=== PATIENT | male | born 1955 | race Two or more races ===

== ENCOUNTER 2020-10-17 15:59 | Outpatient (REF) | payer MEDICARE, SELFPAY ==
--- NOTE | ~2020-10-17 | XR_ITS ---
EXAMINATION: XR KNEE, RIGHT CLINICAL INFORMATION: Pain COMPARISON: Previous x-ray March 2016 TECHNIQUE: Four views of the right knee. FINDINGS: Bone alignment is normal. No fracture or dislocation is seen. There is joint space narrowing at the medial femoral tibial joint. There are small osteophytes at the patellofemoral joint. There is a moderate joint effusion. There is an osteophyte at the quadriceps tendon insertion to the patella. XR/XR knee RT 4V IMPRESSION: Osteoarthritis and joint effusion.
== END 2020-10-17 16:00 | disposition home or self-care (01) ==
LOC: HO.XRAY 15:59
PROVIDERS: PCP Internal Medicine; Visit Provider Internal Medicine
DX: M25.561 Pain in right knee (principal)
CPT/HCPCS: 73564

== ENCOUNTER 2020-10-20 09:28 | Emergency (ER) | payer MEDICARE, SELFPAY ==
[2020-10-20 09:46] VITALS: BP 135/70; PULSE 65; RESP 17; TEMP 36.8; O2SAT 97; BMI 30.4
--- NOTE | 2020-10-20 10:00 | ED.GENADULT ---
HPI - General Adult General Chief complaint: Extremity Injury, Lower Stated complaint: knee pain Time Seen by Provider: 10/20/20 09:52 Source: patient Mode of arrival: ambulatory Limitations: no limitations History of Present Illness HPI narrative: Patient presents to ED for evaluation for right knee pain. Patient had x-ray of his right knee on Saturday by PCP which shows severe arthritis and some joint effusion. Patient was sent for the ED for evaluation. Patient denies any fever, chills, warmth, redness of knee, or inability to walk. Patient denies any recent trauma. Patient states able to flex and extend knee in all positions. Related Data Previous Rx's Medication Instructions Recorded naproxen 500 mg PO BID PRN #20 tab 10/20/20 prednisone 40 mg PO DAILY #10 tab 10/20/20 Allergies Allergy/AdvReac Type Severity Reaction Status Date / Time avocado [AVOCADO] Allergy Unknown SEVERE N/V Verified 10/20/20 09:49 avacado Allergy Unknown nausea and Uncoded 11/12/16 00:00 vomiting Review of Systems Review of Systems: Yes all other systems are reviewed and are negative Constitutional: Constitutional: Reports as per HPI and Reports no additional constitutional complaints Eyes: Eyes: Reports as per HPI and Reports no additional eye complaints ENT: Reports system reviewed and no additional complaints, except as documented and Reports as per HPI Cardiovascular: Cardiovascular: Reports as per HPI and Reports no additional cardiovascular complaints Respiratory: Respiratory: Reports as per HPI and Reports no additional respiratory complaints Gastrointestinal: Gastrointestinal: Reports as per HPI and Reports no additional gastrointestinal complaints Musculoskeletal: Musculoskeletal: Reports no additional musculoskeletal complaints, Reports as per HPI and Reports arthralgias (Right knee pain) Neurologic: Reports system reviewed and no additional complaints, except as documented and Reports as per HPI Psychiatric: Psychiatric: Reports no additional psychiatric complaints and Reports as per HPI [facility] Past Medical History Medical History (Updated 10/20/20 @ 10:08 by TERESA Patel) No known health problems Social History Social History Advance Directives: No Advance Directives Information Provided: Yes Physical Exam Vital Signs: Vital Signs: Last Vital Signs Temp 98.2 F 10/20/20 09:46 Pulse 65 10/20/20 09:46 Resp 17 10/20/20 09:46 BP 135/70 10/20/20 09:46 Pulse Ox 97 10/20/20 09:46 Body Mass Index 30.4 Const: General: cooperative, healthy appearing, comfortable, no acute distress, well developed, alert, awake and Physically active Orientation/consciousness: patient oriented x3 HENMT: Head: Yes normal to inspection, Yes No palpable skull fracture present, Yes normocephalic and Yes atraumatic Eyes: General: appearance normal, both eyes and all related structures Neck: Neck: Yes normal visual inspection, Yes full ROM, Yes no lymphadenopathy, Yes no meningeal signs, Yes trachea midline, Yes supple and No tender Chest: Chest palpation & inspection: normal inspection of the chest and normal palpation of entire chest wall Resp: Effort & Inspection: normal respiratory effort and able to speak in complete sentences Auscultation: clear to auscultation bilaterally Cardio: Jugular venous distension: no JVD Heart sounds: S1 normal heart sound present and S2 normal heart sound present GI: Inspection: Yes normal to inspection and No abdominal wall ecchymosis Palpation (GI): Soft to palpation, not firm, nontender, no guarding and not rigid : General: No CVA tenderness and Yes no CVA tenderness Back/Spine/Pelvis: Back: no CVA tenderness, No CVA tenderness and No back tenderness Skin: General skin exam: no rashes or lesions noted and elasticity normal Neuro: General: patient oriented x3, gait normal, no meningeal signs and CN's II-XI intact bilaterally Cranial nerves: Yes CN's II-XII intact bilaterally Extrem: Knee images: 1. Positive for bone tenderness on palpation. Knee is not warm or red. Patient has complete flexion and extension of knee. Negative for any fluctuance. Knee is slightly more swollen than left knee. Pulses in feet intact. Negative for leg swelling or calf pain. Psych: Appearance: grossly normal, well kempt and not disheveled Course Course Course Narrative: History physical exam does not indicate septic knee joint or gout. No indication for arthrocentesis. Patient vital signs are stable. Patient has complete range of motion of knee. Reevaluation(s) Reevaluation #1: Patient informed presently no arthrocentesis indicated. Patient educated on septic knee and told to return to the ED should any of the symptoms. Patient placed in Shiraz wrap will be discharged with NSAIDs and steroids. Patient has appointment with Orthopedics next week. Time: 10:06 Medical Decision Making [facility] Narrative Medical decision making narrative: Arthritic knee Discharge Plan Discharge Clinical Impression: Arthritis of knee Patient Disposition: Home, Self-Care Instructions: Osteoarthritis (ED), Swollen Knee Joint (ED) Additional Instructions: Presently there is no indication for arthrocentesis. Please keep your appointment with orthopedic next week. Return to the ED immediately for inability to flex/extend knee, inability to walk, worsening swelling, redness of knee, warmth of knee, fever, chills, chest pain, shortness of breath, or any other concerning symptoms. Prescriptions: New naproxen 500 mg tablet 500 mg PO BID PRN (Reason: pain) Qty: 20 RF: 0 prednisone 20 mg tablet 40 mg PO DAILY Qty: 10 RF: 0 Stand Alone Forms: Work/School Release Interventions: ED Discharge Assessment Last Done: 10/20/20 10:15 Discharge Date/Time: 10/20/20 10:17 Print Language: Faroese
== END 2020-10-20 10:17 | disposition home or self-care (01) ==
PROVIDERS: Emergency Provider Emergency Medicine; PCP Internal Medicine
DX: M17.11 Unilateral primary osteoarthritis, right knee (principal)
CPT/HCPCS: 99283

== ENCOUNTER → 2020-11-02 10:46 | Outpatient (BNVA) | payer MEDICARE, SELFPAY | PROVIDERS: PCP Internal Medicine; Visit Provider Physician Assistant | DX: M17.11 Unilateral primary osteoarthritis, right knee (principal) | CPT/HCPCS: 20610; 99202; J1040 ==

== ENCOUNTER 2021-02-03 08:14 | Outpatient (REF) | payer MEDICARE, SELFPAY ==
[2021-02-03 08:32] LABS: MANUAL DIFF FLAG NO
[2021-02-03 09:02] LABS: Basophils Absolute Auto 0.1 X10*3/uL (0.0-0.2); Basophils Percent Auto 0.9 % (0-2); Eosinophils Absolute Auto 0.1 X10*3/uL (0.0-0.4); Eosinophils Percent Auto 1.7 % (0-4); Hematocrit 36.1 % (42-52); Imm Gran Abs Auto 0.08 X10*3/uL (0.00-0.03); Imm Gran Pct Auto 1.4 % (0.0-0.4); Lymphocytes Absolute Auto 1.7 X10*3/uL (1.2-4.9); Lymphocytes Percent Auto 29.7 % (20-40); Mean Corpuscular HGB Conc 33.2 g/dl (31.0-36.0); Mean Corpuscular Volume 87.2 fL (80-98); Monocytes Absolute Auto 0.4 X10*3/uL (0.1-1.2); Monocytes Percent Auto 6.7 % (2-11); NRBC Pct Auto 0.7 /100WBC (0.0-0.2); Neutrophils Absolute Auto 3.5 X10*3/uL (2.0-8.3); Neutrophils Percent Auto 59.6 % (45-73); Platelet Count 240 X10*3/uL (160-400); Red Blood Count 4.14 X10*6/uL (4.60-5.80); White Blood Count 5.8 X10*3/uL (4.8-10.8)
[2021-02-03 09:26] LABS: Alanine Aminotransferase 20 U/L (0-40); Albumin Level 4.5 g/dL (3.5-5.0); Alkaline Phosphatase 73 U/L (39-117); Anion Gap 10 (12-20); Aspartate Amino Transferase 16 U/L (5-37); Bilirubin Total 0.6 mg/dL (0.0-1.0); Blood Urea Nitrogen 18 mg/dL (9-16); Calcium 9.9 mg/dL (8.4-10.2); Carbon Dioxide 32 mmol/L (22-29); Chloride 100 mmol/L (96-108); Cholesterol 171 mg/dL; Estimated Glomerular Filt Rate > 60; Glucose Random 103 mg/dL (60-115); HDL Cholesterol 32 mg/dL; LDL Cholesterol Calculated 86 mg/dl; Sodium 138 mmol/L (135-145); Total Protein 7.5 g/dL (6.5-8.0); Triglycerides 267 mg/dL
[2021-02-03 09:48] LABS: Creatinine Urine 166.55 mg/dL; Microalbum/Creatinine Ratio Ur 4.8 ug/mg cr
[2021-02-03 09:50] LABS: PSA,Total (Free>4and<10) 0.34 ng/mL (0.00-4.00)
[2021-02-03 10:58] LABS: Folate 13.2 ng/mL (> or = 4.0); Vitamin B12 255 pg/mL (200-900)
== END 2021-02-03 08:15 | disposition home or self-care (01) ==
LOC: HO.LAB 08:14
PROVIDERS: PCP Internal Medicine; Visit Provider Internal Medicine
DX: M17.11 Unilateral primary osteoarthritis, right knee (principal); E78.1 Pure hyperglyceridemia; I10 Essential (primary) hypertension; R73.03 Prediabetes; Z12.5 Encounter for screening for malignant neoplasm of prostate
CPT/HCPCS: 20610; 36415; 80053; 80061; 82043; 82607; 82746; 84153; 85025; 99212; J1040

== ENCOUNTER → 2021-03-02 14:13 | Outpatient (BNV) | payer MEDICARE, SELFPAY | PROVIDERS: PCP Internal Medicine; Visit Provider Internal Medicine Medical Oncology | DX: D64.9 Anemia, unspecified (principal) | CPT/HCPCS: 99203; 99213 ==

== ENCOUNTER 2021-05-29 11:27 | Outpatient (REF) | payer MEDICARE, OTHER, SELFPAY ==
[2021-05-29 12:02] LABS: Binax Internal Control QC Valid; Binax Now Covid-19 Ag Negative (Negative)
== END 2021-05-29 11:28 | disposition home or self-care (01) ==
LOC: HO.LAB 11:27
PROVIDERS: Visit Provider Internal Medicine
DX: Z20.822 Contact with and (suspected) exposure to COVID-19 (principal)
CPT/HCPCS: C9803

== ENCOUNTER → 2021-08-30 09:44 | Outpatient (BNVA) | payer MEDICARE, OTHER, SELFPAY | PROVIDERS: PCP Internal Medicine; Visit Provider Physician Assistant | DX: M17.11 Unilateral primary osteoarthritis, right knee (principal) | CPT/HCPCS: 20610; 99212; J1040 ==

== ENCOUNTER 2021-10-18 09:38 | Outpatient (REF) | payer MEDICARE, OTHER, SELFPAY ==
--- NOTE | ~2021-10-18 | US_ITS ---
EXAMINATION: US RETROPERITONEAL LIMITED (AORTA) CLINICAL INFORMATION: History of smoking. COMPARISON: None TECHNIQUE: Campo-scale, color Doppler and spectral Doppler evaluation of the abdominal aorta. FINDINGS: The aorta is normal. The measurements of the aorta in maximum AP and transverse dimensions respectively are as follows: Proximal: 2.6 x 2.3 cm. Mid: 1.9 x 1.9 cm. Distal: 1.7 x 2.1 cm. PSV: 140 cm/s. The measurements of the common iliac arteries in maximum AP and TRV dimensions are as follows: Right Common Iliac Artery: 1.1 x 1.4 cm. Left Common Iliac Artery: 1.3 x 1.4 cm. US/US abdominal aortic aneurysm IMPRESSION: Normal caliber abdominal aorta. No aneurysm is seen.
== END 2021-10-18 09:39 | disposition home or self-care (01) ==
LOC: HO.US 09:38
PROVIDERS: Visit Provider Internal Medicine
DX: Z13.6 Encounter for screening for cardiovascular disorders (principal); Z72.0 Tobacco use
CPT/HCPCS: 76706

== ENCOUNTER → 2021-11-09 14:48 | Outpatient (BNVA) | payer MEDICARE, OTHER, SELFPAY | PROVIDERS: PCP Internal Medicine; Visit Provider Orthopaedic Surgery | DX: M17.11 Unilateral primary osteoarthritis, right knee (principal) | CPT/HCPCS: 99212 ==

== ENCOUNTER 2021-12-28 09:07 | Outpatient (REF) | payer MEDICARE, OTHER, SELFPAY ==
--- NOTE | ~2021-12-28 | XR_ITS ---
EXAMINATION: XR KNEE AP STANDING CLINICAL INFORMATION: Right knee pain COMPARISON: Radiographs right knee 10/17/2020, radiographs left knee 04/03/2016 TECHNIQUE: Bilateral standing AP view of the knees is performed. FINDINGS: Right: There is osteoarthritis medial lateral compartments, greater on medial side with moderate to prominent joint narrowing and secondary genu varus. No erosive change or chondrocalcinosis. Mild marginal osteophytes. Bony mineralization normal. Left: Mild to moderate narrowing medial knee joint compartment. Mild secondary genu varus. Mild marginal osteophytes. No erosive change or chondrocalcinosis. Bony mineralization normal. XR/XR knee standing BI IMPRESSION: Bilateral narrowing medial knee joint compartments, greater on right. Mild bilateral secondary genu varus.
== END 2021-12-28 09:08 | disposition home or self-care (01) ==
LOC: HO.HOSX 09:07
PROVIDERS: Visit Provider Physician Assistant
DX: M17.11 Unilateral primary osteoarthritis, right knee (principal); M25.562 Pain in left knee
CPT/HCPCS: 73565; 99212

== ENCOUNTER 2022-01-02 06:07 | Inpatient (IN) | payer MEDICARE, OTHER, SELFPAY ==
[2021-12-27 11:17] VITALS: BMI 28.8
[2021-12-28 11:11] VITALS: BP 123/65; PULSE 68; RESP 16; O2SAT 97
[2021-12-28 13:16] LABS: MRSA Nasal PCR NEGATIVE (Negative); SA Nasal PCR NEGATIVE (Negative)
[2022-01-02] VITALS (20 sets, daily range): BP systolic 91–127; BP diastolic 48–70; PULSE 53–113; RESP 12–20; TEMP 36.7–37.2; O2SAT 96–100
--- NOTE | ~2022-01-02 | US_ITS ---
EXAMINATION: US VENOUS ULTRASOUND WITH DOPPLER LOWER EXTREMITY, BILATERAL CLINICAL INFORMATION: Pain. Post right knee replacement COMPARISON: None TECHNIQUE: Ultrasound of the deep veins is performed from the hip to the calf with compression sonography and color and pulse Doppler assessment. Spectral analysis with color-flow imaging is performed. FINDINGS: RIGHT: There is normal venous compression and respiratory variation and augmented flow. The visualized common femoral vein, superficial femoral vein, profunda femoral vein, popliteal vein, and the peroneal veins shows no evidence of deep venous thrombosis. The posterior tibial veins are not well visualized. There is no significant popliteal fossa cyst. LEFT: There is normal venous compression and respiratory variation and augmented flow. The visualized common femoral vein, superficial femoral vein, profunda femoral vein, popliteal vein, and the peroneal veins shows no evidence of deep venous thrombosis. The posterior tibial veins are not well visualized There is no significant popliteal fossa cyst. US/US venous duplex LE BI IMPRESSION: No DVT demonstrated in the bilateral lower extremity. The posterior tibial veins are not well visualized bilaterally.
--- NOTE | ~2022-01-02 | XR_ITS ---
EXAMINATION: XR KNEE, RIGHT CLINICAL INFORMATION: Status post total right knee arthroplasty. COMPARISON: None TECHNIQUE: Two views of the right knee. FINDINGS: The patient is status post total right knee arthroplasty showing good anatomic alignment and no evidence for hardware malfunction. There is no acute fracture. Mild intra-articular and anterior soft tissue air is noted. Multiple anterior skin gilda are noted. XR/XR knee RT 2V IMPRESSION: Postoperative changes without hardware abnormality.
[2022-01-02 06:52] LABS: Hematocrit 32.2 % (42.0-52.0); Hemoglobin 11.2 g/dl (14.0-18.0)
--- NOTE | 2022-01-02 07:05 | HO.ANESPROP2 ---
HPI - Anesthesia Eval Consult details Narrative: 66 M for TKR on right . Tremor on left side , saw neurologist , not on any medications. As per PCP optimized to proceed with procedure . [facility] Active Problems Active Problems: All Active Problems (Updated 12/27/21 @ 10:55 by Mariana Livingston RN) Osteoarthritis of right knee (Acute) Normochromic normocytic anemia (Acute) Past Medical History Medical History GERD (gastroesophageal reflux disease) HTN (hypertension) Family History Family history of problems with anesthesia: No Surgical History Surgical History History of esophagogastroduodenoscopy (EGD) History of surgery Hx of colonoscopy History of Problems with Anesthesia: No Social History Social History Household Members: Spouse Housing: House Are you a primary rn long term care to a significant other at home: No Do you presently have visiting nurse or other home services: No Alcohol intake: never Patient Tobacco Use Status: Never used Tobacco Substance Use Type: Former Substance User Have you been hit, kicked, punched, or otherwise hurt by someone within the past year? If so, by whom?: No Spiritual Healthcare Practices: none Church Healthcare Practices: none Cultural Healthcare Practices: none Are you DNR?: No Advance Directives: No Advance Directives Information Provided: Yes Advance Directives on File: No Recently lost weight without trying: No Nutrition Risks: No Nutritional Risk Poor oral hygiene: No service: No Current occupational status: retired Current occupation: right handed/ [employer] Allergies Allergy/AdvReac Type Severity Reaction Status Date / Time avocado [AVOCADO] Allergy Unknown SEVERE N/V Verified 01/02/22 06:54 Active Medications: Current Medications Lactated Ringer's (Lr) 1,000 mls @ 50 mls/hr IVCONT .Q20H [facility] Home Medications Medication Instructions Recorded Confirmed Last Taken Type docusate sodium 100 mg capsule 100 mg PO DAILY 11/02/20 12/28/21 Unknown History (Colace) naloxone 4 mg/actuation nasal 1 spray intranasal Q2M PRN Opioid 11/02/20 12/14/21 Unknown History spray (Narcan) Overdose sennosides 8.6 mg tablet (Senna 17.2 mg PO DAILY 11/02/20 12/28/21 Unknown History Lax) buprenorphine 2 mg-naloxone 0.5 mg 1 film sublingual TID 03/02/21 12/28/21 01/02/22 05:20 History sublingual film (Suboxone) lisinopril 20 1 tab PO DAILY 03/02/21 12/28/21 01/02/22 05:20 History mg-hydrochlorothiazide 25 mg tablet omega-3 fatty acids-fish oil 340 1 cap PO DAILY 03/02/21 12/28/21 01/01/22 History mg-1,000 mg capsule (Fish Oil) cyanocobalamin (vitamin B-12) 1 tab PO DAILY 12/27/21 12/27/21 Unknown History 1,000 mcg tablet omeprazole 40 mg capsule,delayed 1 cap PO DAILY 01/02/22 01/02/22 01/02/22 05:30 History release Exam Exam Date and Time: January 02, 2022 0705 Height,Weight and Vital Signs: Height 5 ft 7 in Weight 83.461 kg Last Vital Signs Temp 98.0 F 01/02/22 06:37 Pulse 72 01/02/22 06:37 Resp 16 01/02/22 06:37 BP 127/63 01/02/22 06:37 Pulse Ox 99 01/02/22 06:37 O2 Del Method 01/02/22 06:37 Pertinent Lab Results Pertinent Lab Results: Laboratory Tests 12/28/21 12/28/21 01/02/22 11:35 12:12 06:44 Hgb 11.2 L Hct 32.2 L Nasal Screen MRSA (PCR) NEGATIVE Nasal S. aureus Screen NEGATIVE Nasal MRSA/S.aureus Interp SEE NOTE Blood Type O Positive Antibody Screen NEGATIVE Airway Mallampati Class: III TM Dist: >3cm Neck ROM: Full Loose/Missing/Broken Teeth: Yes (Multiple chipped , fillings . Poor dentition globally ) Heart: S1, S2 Lungs: b/l breath sounds Assessment and Plan Assessment Anesthesia Assessment: Anesthesia Plan Discussed and Chart Reviewed Final Anesthetic Review Family History of Problems with Anesthesia: No History of Problems with Anesthesia: No NPO: Yes ASA Class: III Final Preanesthetic Review: Meds/Allgs Chart Reviewed, Consent Obtained/Reviewed and Anes Risks/Benef Reviewed Patient Risk: Intermediate Procedure Risk: Intermediate Anesthetic Plan Anesthetic Plan: Spinal and Regional Block Disposition: Extended PACU
[2022-01-02] MEDS: Lactated Ringers 1,000 ML 50 ML IVCONT (07:12)
[2022-01-02 07:25] LABS: COVID-19 Test Negative (Negative); IDNOW Serial# 16C4AD1C
--- NOTE | 2022-01-02 07:25 | PC.NURSE ---
per lab at 720, covid negative
--- NOTE | 2022-01-02 07:27 | MHC.SHP ---
Pre-Procedural Eval Section A Date of Service: 01/02/22 The patient is an INPATIENT: No Changes since office visit: Yes Patient answered all questions; No Cold of Flu in the past 2 weeks, No New Medical Problems and No Changes in Medication The History & Physical has been completed within 30 days and I have reviewed it.: Yes Section B Chief Complaint: RT TKA Allergies: Allergies Allergy/AdvReac Type Severity Reaction Status Date / Time avocado [AVOCADO] Allergy Unknown SEVERE N/V Verified 01/02/22 06:54 Plan I have reviewed the history and physical and performed a pertinent physical examination on my patient. No changes have occurred unless specified.
--- NOTE | 2022-01-02 09:31 | P.BOP_ITS ---
Brief Operative Note Date of Service: 01/02/22 Pre-op diagnosis: Left Knee OA Post-op diagnosis: same Procedure: Left TKA Implants: [place] Tri[employer]on press fit cruciate retaining 09/08/12r/35a Surgeon: Mesfin Rodriguez MD Anesthesia: regional and spinal Was an Activated Sludge Operator used for this Procedure?: Yes Activated Sludge Operator: Ermelinda Tyson Estimated blood loss (mL): 200 IV fluids (mL): 1,000 Pathology: other Condition: stable Disposition: PACU
--- NOTE | 2022-01-02 09:32 | P.OP_ITS ---
Operative Note Operative Note Date of Service: 01/02/22 Narrative: Procedure in detail: The patient was brought to the operating room and prepped and draped in standard sterile fashion. A time-out was called to identify proper site proper procedure proper surgeon and IV antibiotics were administered. 1 g of IV tranexamic acid was administered. He had a 10-12 deg flexion contracture. I began by making a midline incision to the retinaculum and performed a medial parapatellar arthr otomy. The patella was translated laterally and the knee was flexed up. The medial compartment was eburnated . I performed a small medial peel and resected the infrapatellar fat pad. [place]'s line was then used to drill my intramedullary femoral guide and my distal femur cut of 12 mm was made in 5 degrees of valgus while protecting the soft tissues. I then measured a # 5 femur and placed my cutting guide and made my anterior posterior and chamfer cuts protecting the soft tissues at all times. Once I was satisfied with my cuts I turned my attention to the tibia. I removed the meniscus medially and laterally and , using an external cutting guide, in line with the tibial crest and the third ray, I made my distal tibial cut in 3 deg slope of while protecting the PCL the posterior soft tissues at all times. An extension block was used to confirm appropriate amount of bony resection. I then sized a #6 tibia and once I was satisfied that there was complete tibial coverage I placed my trial and with the trial femur in place took the knee through range of motion. I was satisfied with the extension and flexion as well as the stability at 0, 30 and 90 degrees. I then turned my attention to the patella where I removed 1 cm from the undersurface of the patella and then trialed a 35a patellar button. Again the knee was taken through range of motion I was satisfied with the tracking. I then returned to the femur and drilled my femoral lug holes and prepared the tibia. A femoral bone plug was placed and the knee was irrigated copiously. I then press fit the patella, tibia and femur in standard fashion. He had some play medial in extension and a 13 insert was selected. This resulted in a well balanced knee coming out to 0-2deg of full extension. The final insert was impacted in place and a 3 minutes iodine soak with local TXA was performed. A Werewolf cautery wand was used to maintain hemostasis over the capsule and meniscal beds, the gutters and peripatellar soft tissues. The knee was then closed with a running Quill suture, a 3 0 Vicryl and gilda on the skin. Patient was then placed in sterile dressing and brought to recovery room in stable condition there were no known complications.
--- NOTE | 2022-01-02 09:55 | PHA.MEDREC ---
Pharmacy Consult ? Medication Reconciliation Pharmacy has reviewed the medication reconciliation completed by nursing. Batool aPrker, AzaelD
[2022-01-02] MEDS: Lactated Ringers 1,000 ML 100 ML IVCONT ×2 (10:17→19:35)
[2022-01-02] MEDS: HYDROmorphone HCl 0.5 MG/0.5 ML SYRINGE 0.25 MG IVPUSH ×5 (10:45→16:24)
[2022-01-02] MEDS: oxyCODONE HCl Immed Release 5 MG TABLET 10 MG PO (12:41)
[2022-01-02] MEDS: ceFAZolin Sodium/Dextrose,Iso 2 GM/50 ML PIGGYBACK IV (14:01)
--- NOTE | 2022-01-02 15:00 | MHC.CM.PN ---
Addendum entered by Sherri Flores 01/02/22 15:24: PT IS RECOMMENDING HOME WITH PT. REFERRAL TO [facility] INITIATED. Addendum entered by Sherri Flores 01/02/22 15:15: HCP COMPLETED, ORIGINAL AND COPIES TO PATIENT, COPY TO CHART AND COPY UPLOADED TO [facility]. 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
[2022-01-02] MEDS: Buprenorphine/Naloxone 2/0.5mg FILM 1 FILM SUBLINGUAL ×2 (15:38→19:37)
--- NOTE | 2022-01-02 16:47 | P.CONHOSP_ITS ---
History of Present Illness Data of Consult Service Date: 01/02/22 Requesting physician: Mesfin Rodriguez Primary Care Provider: Kory Velasco MD HPI Reason for consult: Medical management/hypertension 66-year-old gentleman admitted under Orthopedic Service for an elective right total knee arthroplasty due to history of right knee arthritis, post surgery patient is complaining of severe right knee pain, feels not responding to IV Dilaudid by mouth oxycodone and OxyContin patient is chronically on Suboxone due to prior history of opiate use , patient denies other acute symptoms of chest pain, no shortness of breath, no palpitation, no lightheadedness, no dizziness, no nausea, no vomiting had last bowel movement yesterday is on stool softeners chronically due to use of Suboxone, has history of hypertension noted to have low blood pressures. 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 no dizziness CVS no chest pain, no palpitation GI no nausea, no vomiting Respiratory no cough, no shortness of breath Skin denies rash no urgency, no frequency Yes all other systems are reviewed and are negative [facility] Medical History GERD (gastroesophageal reflux disease) HTN (hypertension) Pertinent family history: Mother had pacemaker, and history of bowel obstruction Surgical History History of esophagogastroduodenoscopy (EGD) History of surgery Hx of colonoscopy Social History Household Members: Spouse Housing: House Are you a primary palliative care coordinator to a significant other at home: No Do you presently have visiting nurse or other home services: No Alcohol intake: never Patient Tobacco Use Status: Never used Tobacco Substance Use Type: Former Substance User Have you been hit, kicked, punched, or otherwise hurt by someone within the past year? If so, by whom?: No Spiritual Healthcare Practices: none Moravian Healthcare Practices: none Cultural Healthcare Practices: none Are you DNR?: No Advance Directives: No Advance Directives Information Provided: Yes Advance Directives on File: No Recently lost weight without trying: No Nutrition Risks: No Nutritional Risk Poor oral hygiene: No service: No Current occupational status: retired Current occupation: right handed/ [employer] Allergies Allergy/AdvReac Type Severity Reaction Status Date / Time avocado [AVOCADO] Allergy Unknown SEVERE N/V Verified 01/02/22 06:54 Active Medications: Current Medications Acetaminophen (Acetaminophen 325 Mg Tablet) 650 mg PO Q6H PRN PRN Reason: Pain, Mild (Pain Scale 1-3) Buprenorphine/Naloxone (Buprenorphine/Naloxone 2/0.5mg Film) 1 film SUBLINGUAL TID [facility] Last Admin: 01/02/22 15:38 Dose: 1 film Celecoxib (Celecoxib 200 Mg Capsule) 200 mg PO BID [facility] Cyanocobalamin (Cyanocobalamin (Vitamin B-12) 1,000 Mcg Tablet) 1,000 mcg PO DAILY [facility] Docusate Sodium (Docusate Sodium 100 Mg Capsule) 100 mg PO DAILY [facility] Hydromorphone HCl (Hydromorphone Hcl 0.5 Mg/0.5 Ml Syringe) 0.5 mg IVPUSH Q5M PRN; Protocol PRN Reason: Pain, Severe (Pain Scale 7-10) Hydromorphone HCl (Hydromorphone Hcl 0.5 Mg/0.5 Ml Syringe) 0.25 mg IVPUSH Q4H PRN; Protocol PRN Reason: Pain, Severe (Pain Scale 7-10) Last Admin: 01/02/22 16:24 Dose: 0.25 mg Lactated Ringer's (Lr) 1,000 mls @ 100 mls/hr IVCONT .Q10H [facility] Last Admin: 01/02/22 10:17 Dose: 100 mls/hr Omeprazole (Omeprazole 40 Mg Capsule.Dr) 40 mg PO DAILY@0630 [facility] Ondansetron HCl (Ondansetron Hcl 4 Mg/2 Ml Vial) 4 mg IVPUSH Q8H PRN PRN Reason: Nausea and Vomiting Oxycodone HCl (Oxycodone Hcl Immed Release 5 Mg Tablet) 10 mg PO Q4H PRN PRN Reason: Pain, Moderate (Pain Scale 4-6 Last Admin: 01/02/22 12:41 Dose: 10 mg Oxycodone HCl (Oxycodone Hcl Er 10 Mg Tab.Er.12h) 20 mg PO BID [facility] Senna (Sennosides 8.6 Mg Tablet) 17.2 mg PO DAILY [facility] Sodium Chloride (0.9 % Sodium Chloride Flush 3 Ml Syringe) 3 ml IVFLUSH QSHIFT VIVIANE Last Admin: 01/02/22 15:40 Dose: Not Given Home Medications Medication Instructions Recorded Confirmed Last Taken Type docusate sodium 100 mg capsule 100 mg PO DAILY 11/02/20 12/28/21 Unknown History (Colace) naloxone 4 mg/actuation nasal 1 spray intranasal Q2M PRN Opioid 11/02/20 12/14/21 Unknown History spray (Narcan) Overdose sennosides 8.6 mg tablet (Senna 17.2 mg PO DAILY 11/02/20 12/28/21 Unknown History Lax) buprenorphine 2 mg-naloxone 0.5 mg 1 film sublingual TID 03/02/21 12/28/21 01/02/22 05:20 History sublingual film (Suboxone) lisinopril 20 1 tab PO DAILY 03/02/21 12/28/21 01/02/22 05:20 History mg-hydrochlorothiazide 25 mg tablet omega-3 fatty acids-fish oil 340 1 cap PO DAILY 03/02/21 12/28/21 01/01/22 History mg-1,000 mg capsule (Fish Oil) cyanocobalamin (vitamin B-12) 1 tab PO DAILY 12/27/21 12/27/21 Unknown History 1,000 mcg tablet omeprazole 40 mg capsule,delayed 1 cap PO DAILY 01/02/22 01/02/22 01/02/22 05:30 History release Physical Exam Vital Signs and Narrative: Vital Signs: Last Vital Signs Temp 98.8 F 01/02/22 14:52 Pulse 86 01/02/22 15:03 Resp 17 01/02/22 14:52 BP 105/54 L 01/02/22 15:03 Pulse Ox 99 01/02/22 15:03 O2 Del Method 01/02/22 14:52 O2 Flow Rate 2 01/02/22 12:50 BMI result Body Mass Index 28.8 Const: Other: General awake alert, in no acute distress. Neck supple no JVD. CVS regular rate rhythm, Respiratory lungs clear to auscultation, no respiratory distress, no wheeze, no rhonchi. Gastrointestinal abdomen soft, nontender, bowel sounds audible, no guarding , no rigidity. Extremities right knee dressing in place, no drainage noted Neuro nonfocal . Skin no rash Psych appropriate affect Results Labs CBC and Chem 7: 01/02/22 06:44 Labs: Laboratory Results - last 24 hr 01/02/22 06:15 COVID-19 ([facility]) Negative COVID-19 Clin Com See Note Imaging Radiologist's Impressions: Impressions Knee X-Ray 01/02/22 10:30 IMPRESSION: Postoperative changes without hardware abnormality. Assessment and Plan (1) Status post total knee replacement, right: Status: Acute (2) Normochromic normocytic anemia: Status: Acute Plan 66-year-old gentleman with past medical history of GERD, hypertension former drug user currently on Suboxone admitted to orthopedic service for an elective total knee arthroplasty. Status post total knee arthroplasty postoperative day 0 Patient complaining of pain not relieved with current pain medication will increase dose of Dilaudid to 1 mg q.4 hours as needed continue oxycodone, celebrex and OxyContin Continue stool softener/PT and DVT prophylaxis as per Ortho, follow CBC Hypertension currently soft blood pressure hold antihypertensive follow blood pressure closely History of chronic normocytic anemia stable hematocrit follow CBC GERD continue Prilosec History of substance abuse continue Suboxone, stool softener DVT prophylaxis as per Ortho Thank you for allowing us to participate in the care of this patient will co marleen to follow
[2022-01-02] MEDS: HYDROmorphone HCl 0.5 MG/0.5 ML SYRINGE IVPUSH (17:29)
[2022-01-02] MEDS: oxyCODONE HCl ER 10 MG TAB.ER.12H 20 MG PO (19:36)
[2022-01-02] MEDS: Celecoxib 200 MG CAPSULE PO (19:37)
[2022-01-03] VITALS (8 sets, daily range): BP systolic 105–132; BP diastolic 52–68; PULSE 74–91; RESP 13–18; TEMP 36.4–37.4; O2SAT 92–99
[2022-01-03] MEDS: HYDROmorphone HCl 0.5 MG/0.5 ML SYRINGE 1 MG IVPUSH (00:04)
[2022-01-03] MEDS: Ketorolac Tromethamine 15 MG/ML VIAL IVPUSH (02:00)
[2022-01-03] MEDS: Lactated Ringers 1,000 ML 100 ML IVCONT (04:54)
[2022-01-03] MEDS: Omeprazole 40 MG CAPSULE.DR PO (04:54)
[2022-01-03 06:24] LABS: MANUAL DIFF FLAG NO
[2022-01-03] MEDS: oxyCODONE HCl Immed Release 5 MG TABLET 10 MG PO ×3 (06:32→17:22)
[2022-01-03 06:39] LABS: Basophils Percent Auto 0.3 % (0-2); Eosinophils Absolute Auto 0.1 X10*3/uL (0.0-0.4); Eosinophils Percent Auto 0.6 % (0-4); Hematocrit 24.7 % (42.0-52.0); Hemoglobin 8.5 g/dl (14.0-18.0); Imm Gran Abs Auto 0.08 X10*3/uL (0.00-0.03); Lymphocytes Absolute Auto 0.8 X10*3/uL (1.2-4.9); Lymphocytes Percent Auto 9.7 % (20-40); Mean Corpuscular HGB Conc 34.4 g/dl (31.0-36.0); Mean Corpuscular Hemoglobin 29.7 pg (27.0-33.0); Mean Corpuscular Volume 86.4 fL (80.0-98.0); Mean Platelet Volume 8.6 fL (9.4-12.4); Monocytes Absolute Auto 0.6 X10*3/uL (0.1-1.2); Monocytes Percent Auto 7.7 % (2-11); NRBC Pct Auto 0.3 /100WBC (0.0-0.2); Neutrophils Absolute Auto 6.3 x10*3/uL (2.0-8.3); Neutrophils Percent Auto 80.7 % (45-73); Platelet Count 152 X10*3/uL (160-400); Red Blood Count 2.86 X10*6/uL (4.60-5.80); Red Cell Distribution Width 15.7 % (11.0-16.0); White Blood Count 7.8 X10*3/uL (4.8-10.8)
[2022-01-03 06:52] LABS: Anion Gap 15 (12-20); Blood Urea Nitrogen 20 mg/dL (9-16); Calcium 8.4 mg/dL (8.4-10.2); Carbon Dioxide 28 mmol/L (22-29); Chloride 97 mmol/L (96-108); Creatinine Clr Calc Pharmacy 82.2; Estimated Glomerular Filt Rate > 60; Glucose Fasting 127 mg/dL (60-99); Potassium 3.8 mmol/L (3.3-5.1); Sodium 136 mmol/L (135-145)
--- NOTE | 2022-01-03 06:55 | HO.POSTANES ---
Post Anesthesia Evaluation Post Anesthesia Evaluation Vital Signs: Vital Signs Temp Pulse Resp BP Pulse Ox O2 Del Method 01/03/22 03:00 97.5 F 74 17 132/64 95 Room Air 01/02/22 23:00 98.9 F 87 18 127/58 L 99 Room Air 01/02/22 19:38 99.0 F 113 H 17 109/63 98 Room Air Anesthesia: Spinal and Nerve Block Mental Status: Awake Pain Control: Satisfactory (patient complained of inense pain immediately after the surgery and throughout the night although had a successful adductor canal block. ) Nausea/Vomiting: None Hydration: Adequate Anesthesia-Related Issues: No Anes. Related Issues
[2022-01-03] MEDS: Cyanocobalamin (Vitamin B-12) 1,000 MCG TABLET 1000 MCG PO (07:41)
[2022-01-03] MEDS: Acetaminophen 325 MG TABLET 650 MG PO (07:41)
[2022-01-03] MEDS: Aspirin 325 MG TABLET PO ×2 (07:41→20:02)
[2022-01-03] MEDS: Docusate Sodium 100 MG CAPSULE PO ×2 (07:41→20:02)
[2022-01-03] MEDS: Sennosides 8.6 MG TABLET 17.2 MG PO (07:41)
[2022-01-03] MEDS: Celecoxib 200 MG CAPSULE PO ×2 (07:41→20:02)
[2022-01-03] MEDS: oxyCODONE HCl ER 10 MG TAB.ER.12H 20 MG PO ×2 (07:46→20:02)
[2022-01-03] MEDS: Buprenorphine/Naloxone 2/0.5mg FILM 1 FILM SUBLINGUAL ×3 (07:46→20:02)
[2022-01-03] MEDS: 0.9 % Sodium Chloride Flush 3 ML SYRINGE IVFLUSH ×3 (07:59→20:05)
--- NOTE | 2022-01-03 07:59 | PC.NURSE ---
Patients right leg elevated on pillow, mil swelling palpable pedal pulses in foot, denies numbness, tingling. Medicated with pain meds as ordered.
--- NOTE | 2022-01-03 09:41 | P.PNIM_ITS ---
Subjective Subjective Date of Service: 01/03/22 Interval History: Feeling better complaining of persistent knee pain, denies other symptoms of nausea vomiting no acute overnight issues. Review of Systems [employer] no headache no dizziness CVS no chest pain Respiratory no shortness of breath Review of Systems: Yes all other systems are reviewed and are negative Physical Exam Vital Signs: Vital Signs: Last Vital Signs Temp 99.4 F 01/03/22 07:23 Pulse 91 01/03/22 08:27 Resp 13 01/03/22 07:23 BP 119/57 L 01/03/22 08:27 Pulse Ox 92 01/03/22 08:27 O2 Del Method 01/03/22 07:23 O2 Flow Rate 2 01/02/22 12:50 BMI result Body Mass Index 28.8 Const: Other: General awake aler t, in no acute dis tress.? Neck suppl e no JVD. CVS? reg ular rate rhythm, Respiratory lungs clear to auscultat ion, no respirator y distress, no whe pacheco, no rhonchi. G astrointestinal ab domen soft, nonten fernanda, bowel sounds audible, no guardi ng , no rigidity. Extremities right knee dressing in p lace, no drainage noted Neuro nonfoc al . Skin no rash Psych appropriate affect Objective Data Active Medications Acetaminophen (Acetaminophen 325 Mg Tablet) 650 mg PO Q6H PRN PRN Reason: Pain, Mild (Pain Scale 1-3) Last Admin: 01/03/22 07:41 Dose: 650 mg Documented By: LUCIANO Aspirin (Aspirin 325 Mg Tablet) 325 mg PO BID [facility] Last Admin: 01/03/22 07:41 Dose: 325 mg Documented By: LUCIANO Buprenorphine/Naloxone (Buprenorphine/Naloxone 2/0.5mg Film) 1 film SUBLINGUAL TID [facility] Last Admin: 01/03/22 07:46 Dose: 1 film Documented By: LUCIANO Celecoxib (Celecoxib 200 Mg Capsule) 200 mg PO BID [facility] Last Admin: 01/03/22 07:41 Dose: 200 mg Documented By: LUCIANO Cyanocobalamin (Cyanocobalamin (Vitamin B-12) 1,000 Mcg Tablet) 1,000 mcg PO DAILY [facility] Last Admin: 01/03/22 07:41 Dose: 1,000 mcg Documented By: LUCIANO Docusate Sodium (Docusate Sodium 100 Mg Capsule) 100 mg PO DAILY [facility] Last Admin: 01/03/22 07:41 Dose: 100 mg Documented By: LUCIANO Hydromorphone HCl (Hydromorphone Hcl 0.5 Mg/0.5 Ml Syringe) 0.5 mg IVPUSH Q5M PRN; Protocol PRN Reason: Pain, Severe (Pain Scale 7-10) Hydromorphone HCl (Hydromorphone Hcl 0.5 Mg/0.5 Ml Syringe) 1 mg IVPUSH Q4H PRN; Protocol PRN Reason: Pain, Severe (Pain Scale 7-10) Last Admin: 01/03/22 00:04 Dose: 1 mg Documented By: ERIN Omeprazole (Omeprazole 40 Mg Capsule.Dr) 40 mg PO DAILY@0630 [facility] Last Admin: 01/03/22 04:54 Dose: 40 mg Documented By: ERIN Ondansetron HCl (Ondansetron Hcl 4 Mg/2 Ml Vial) 4 mg IVPUSH Q8H PRN PRN Reason: Nausea and Vomiting Oxycodone HCl (Oxycodone Hcl Immed Release 5 Mg Tablet) 10 mg PO Q4H PRN PRN Reason: Pain, Moderate (Pain Scale 4-6 Last Admin: 01/03/22 06:32 Dose: 10 mg Documented By: ERIN Oxycodone HCl (Oxycodone Hcl Er 10 Mg Tab.Er.12h) 20 mg PO BID [facility] Last Admin: 01/03/22 07:46 Dose: 20 mg Documented By: LUCIANO Senna (Sennosides 8.6 Mg Tablet) 17.2 mg PO DAILY [facility] Last Admin: 01/03/22 07:41 Dose: 17.2 mg Documented By: LUCIANO Sodium Chloride (0.9 % Sodium Chloride Flush 3 Ml Syringe) 3 ml IVFLUSH QSHIFT [facility] Last Admin: 01/03/22 07:59 Dose: 3 ml Documented By: LUCAINO Labs CBC & Chem 7: 01/03/22 05:14 01/03/22 05:14 Labs: Laboratory Results - last 24 hr 01/03/22 01/03/22 05:14 05:14 MCV 86.4 MCH 29.7 MCHC 34.4 RDW 15.7 Plt Count 152 L MPV 8.6 L Immature Gran % (Auto) 1.0 H Neut % (Auto) 80.7 H Lymph % (Auto) 9.7 L [place] % (Auto) 7.7 Eos % (Auto) 0.6 Baso % (Auto) 0.3 Lymph # (Auto) 0.8 L [place] # (Auto) 0.6 Eos # (Auto) 0.1 Baso # (Auto) 0.0 Abs Immat Gran (auto) 0.08 H Absolute Neuts (auto) 6.3 Absolute Nucleated RBC 0.020 H Nucleated RBC % (auto) 0.3 H Anion Gap 15 Estim Creat Clear Calc 82.2 Estimated GFR > 60 Fasting Glucose 127 H Calcium 8.4 D Assessment and Plan (1) Status post total knee replacement, right: Status: Acute (2) Normochromic normocytic anemia: Status: Acute Plan 66-year-old gentleman with past medical history of GERD, hypertension former drug user currently on Suboxone admitted to orthopedic service for an elective total knee arthroplasty. Status post total knee arthroplasty postoperative day 1 Continue current pain medications,iv Dilaudid to 1 mg q.4 hours as needed continue oxycodone, celebrex and OxyContin Continue stool softener/PT /IS Will DC IV fluid Hypertension currently soft blood pressure hold lisinopril/hydrochlorothiazide 20/25, follow blood pressure closely History of chronic normocytic anemia , hematocrit dropped to 24.7 question dilutional and related to surgery, follow CBC, add iron hold blood transfusion GERD continue Prilosec History of substance abuse continue Suboxone, stool softener DVT prophylaxis as per Ortho Dispo plan as per Ortho Quality Stroke Does the patient have a stroke diagnosis?: No VTE Prior VTE?: No VTE Risk Level:: Medical - moderate - high VTE Device Contraindication: Treatment Not Indicated VTE Drug Contraindication: N/A - Med Ordered
--- NOTE | 2022-01-03 11:40 | P.PNOP_ITS ---
Subjective Subjective Date of Service: 01/03/22 Interval history: POD 1 s/p RT TKA no overnight events resting in bed, has been out of bed with PT denies cp, sob, palpitations. Physical Exam Vital Signs: Vital Signs: Last Vital Signs Temp 99.4 F 01/03/22 07:23 Pulse 91 01/03/22 08:27 Resp 13 01/03/22 07:23 BP 119/57 L 01/03/22 08:27 Pulse Ox 92 01/03/22 08:27 O2 Del Method 01/03/22 07:23 O2 Flow Rate 2 01/02/22 12:50 BMI result Body Mass Index 28.8 Extrem: Other: bandage clean dry and intact. [place] intact. No erythema or joint effusion. Calf supple nontender. Neurovascularly intact. Procedures Date of Service Date of Service: 01/03/22 Progress Note: A&P Assessment and plan (1) Status post total knee replacement, right: Status: Acute Assessment and Plan: * Continue pain mgmnt * Begin Aspirin for dvt ppx * begin PT for RT TKA * Dispo planning-Pending PT eval, pain mgmnt Time Spent With Patient Time: Total time spent is greater than 50% in coordination of care (as documented) at patient's floor/unit and/or counseling patient: Quality Stroke Does the patient have a stroke diagnosis?: No VTE Prior VTE?: No VTE Risk Level:: Medical - moderate - high VTE Device Contraindication: Treatment Not Indicated VTE Drug Contraindication: N/A - Med Ordered
--- NOTE | 2022-01-03 13:21 | MHC.CM.PN ---
Per ROUNDS discussion, Patient is not yet medically cleared for discharge today R/T pain management of s/p right tka, on IV and PO pain medication; and physical therapy evaluation. D/C continues to be Home with New [facility]. CM will continue to follow for discharge needs.
[2022-01-03] MEDS: Ferrous Sulfate 324 MG TABLET.DR PO (15:17)
--- NOTE | 2022-01-03 15:20 | PC.NURSE ---
Patient up ambulating throughout [address] with PT. Slow steady gait.
[2022-01-04] VITALS (11 sets, daily range): BP systolic 109–148; BP diastolic 53–61; PULSE 76–117; RESP 16–18; TEMP 36.4–37.9; O2SAT 94–97
[2022-01-04] MEDS: Omeprazole 40 MG CAPSULE.DR PO (06:26)
[2022-01-04 06:47] LABS: MANUAL DIFF FLAG NO
[2022-01-04 07:08] LABS: Basophils Percent Auto 0.3 % (0-2); Eosinophils Absolute Auto 0.1 X10*3/uL (0.0-0.4); Eosinophils Percent Auto 1.1 % (0-4); Hemoglobin 7.2 g/dl (14.0-18.0); Imm Gran Abs Auto 0.06 X10*3/uL (0.00-0.03); Imm Gran Pct Auto 0.8 % (0.0-0.4); Lymphocytes Absolute Auto 0.6 X10*3/uL (1.2-4.9); Lymphocytes Percent Auto 8.9 % (20-40); Mean Corpuscular HGB Conc 34.6 g/dl (31.0-36.0); Mean Corpuscular Hemoglobin 29.9 pg (27.0-33.0); Mean Corpuscular Volume 86.3 fL (80.0-98.0); Mean Platelet Volume 8.6 fL (9.4-12.4); Monocytes Absolute Auto 0.5 X10*3/uL (0.1-1.2); Monocytes Percent Auto 6.5 % (2-11); NRBC Pct Auto 0.7 /100WBC (0.0-0.2); Neutrophils Absolute Auto 5.9 x10*3/uL (2.0-8.3); Neutrophils Percent Auto 82.4 % (45-73); Platelet Count 137 X10*3/uL (160-400); Red Blood Count 2.41 X10*6/uL (4.60-5.80); Red Cell Distribution Width 15.7 % (11.0-16.0); White Blood Count 7.2 X10*3/uL (4.8-10.8)
[2022-01-04 07:22] LABS: Hematocrit 20.8 % (42.0-52.0)
[2022-01-04 07:23] LABS: Anion Gap 14 (12-20); Blood Urea Nitrogen 18 mg/dL (9-16); Calcium 8.6 mg/dL (8.4-10.2); Carbon Dioxide 28 mmol/L (22-29); Chloride 98 mmol/L (96-108); Creatinine Clr Calc Pharmacy 90.3; Estimated Glomerular Filt Rate > 60; Glucose Fasting 130 mg/dL (60-99); Sodium 136 mmol/L (135-145)
[2022-01-04] MEDS: oxyCODONE HCl ER 10 MG TAB.ER.12H 20 MG PO (08:59)
[2022-01-04] MEDS: Buprenorphine/Naloxone 2/0.5mg FILM 1 FILM SUBLINGUAL ×2 (09:00→14:54)
[2022-01-04] MEDS: Celecoxib 200 MG CAPSULE PO (09:00)
[2022-01-04] MEDS: Sennosides 8.6 MG TABLET 17.2 MG PO (09:01)
[2022-01-04] MEDS: Ferrous Sulfate 324 MG TABLET.DR PO ×2 (09:02→17:23)
[2022-01-04] MEDS: Cyanocobalamin (Vitamin B-12) 1,000 MCG TABLET 1000 MCG PO (09:02)
[2022-01-04] MEDS: 0.9 % Sodium Chloride Flush 3 ML SYRINGE IVFLUSH ×2 (09:08→17:16)
[2022-01-04] MEDS: Docusate Sodium 100 MG CAPSULE PO (09:18)
[2022-01-04] MEDS: Aspirin 325 MG TABLET PO (09:19)
--- NOTE | 2022-01-04 10:24 | P.PNIM_ITS ---
Subjective Subjective Date of Service: 01/04/22 Interval History: Patient overall feeling better complaining of right knee pain just finished physical therapy, no other acute issues overnight denies headache lightheadedness dizziness, no nausea, no vomiting, no abdominal Pain, no fevers, no chills. Review of Systems Review of Systems: Yes all other systems are reviewed and are negative Physical Exam Vital Signs: Vital Signs: Last Vital Signs Temp 100.2 F 01/04/22 07:00 Pulse 114 H 01/04/22 09:54 Resp 17 01/04/22 07:00 BP 141/61 H 01/04/22 09:54 Pulse Ox 94 01/04/22 09:54 O2 Del Method 01/04/22 07:00 O2 Flow Rate 2 01/02/22 12:50 BMI result Body Mass Index 28.8 Const: Other: General awake alert, in no acute distress.? Neck supple no JVD. CVS? regular rate rhythm, Respiratory lungs clear to auscultation, no respiratory distress, no wheeze, no rhonchi. Gastrointestinal abdomen soft, nontender, bowel sounds audible, no guarding , no rigidity. Extremities right knee dressing in place, no drainage noted Neuro nonfocal . Skin no rash Psych appropriate affect Objective Data Active Medications Acetaminophen (Acetaminophen 325 Mg Tablet) 650 mg PO Q6H PRN PRN Reason: Pain, Mild (Pain Scale 1-3) Last Admin: 01/03/22 07:41 Dose: 650 mg Documented By: LUCIANO Aspirin (Aspirin 325 Mg Tablet) 325 mg PO BID [facility] Last Admin: 01/04/22 09:19 Dose: 325 mg Documented By: JOSE Buprenorphine/Naloxone (Buprenorphine/Naloxone 2/0.5mg Film) 1 film SUBLINGUAL TID [facility] Last Admin: 01/04/22 09:00 Dose: 1 film Documented By: JOSE Celecoxib (Celecoxib 200 Mg Capsule) 200 mg PO BID [facility] Last Admin: 01/04/22 09:00 Dose: 200 mg Documented By: JOSE Cyanocobalamin (Cyanocobalamin (Vitamin B-12) 1,000 Mcg Tablet) 1,000 mcg PO DAILY [facility] Last Admin: 01/04/22 09:02 Dose: 1,000 mcg Documented By: JOSE Docusate Sodium (Docusate Sodium 100 Mg Capsule) 100 mg PO BID [facility] Last Admin: 01/04/22 09:18 Dose: 100 mg Documented By: JOSE Ferrous Sulfate (Ferrous Sulfate 324 Mg Tablet.) 324 mg PO BIDWM [facility] Last Admin: 01/04/22 09:02 Dose: 324 mg Documented By: JOSE Omeprazole (Omeprazole 40 Mg Capsule.) 40 mg PO DAILY@0630 [facility] Last Admin: 01/04/22 06:26 Dose: 40 mg Documented By: ERIN Ondansetron HCl (Ondansetron Hcl 4 Mg/2 Ml Vial) 4 mg IVPUSH Q8H PRN PRN Reason: Nausea and Vomiting Oxycodone HCl (Oxycodone Hcl Immed Release 5 Mg Tablet) 10 mg PO Q4H PRN PRN Reason: Pain, Moderate (Pain Scale 4-6 Last Admin: 01/03/22 17:22 Dose: 10 mg Documented By: LUCIANO Oxycodone HCl (Oxycodone Hcl Er 10 Mg Tab.Er.12h) 20 mg PO BID [facility] Last Admin: 01/04/22 08:59 Dose: 20 mg Documented By: JOSE Senna (Sennosides 8.6 Mg Tablet) 17.2 mg PO DAILY [facility] Last Admin: 01/04/22 09:01 Dose: 17.2 mg Documented By: JOSE Sodium Chloride (0.9 % Sodium Chloride Flush 3 Ml Syringe) 3 ml IVFLUSH QSHIFT [facility] Last Admin: 01/04/22 09:08 Dose: 3 ml Documented By: JOSE Labs CBC & Chem 7: 01/04/22 05:51 01/04/22 05:51 Labs: Laboratory Results - last 24 hr 01/04/22 01/04/22 01/04/22 05:51 05:51 08:32 MCV 86.3 MCH 29.9 MCHC 34.6 RDW 15.7 Plt Count 137 L MPV 8.6 L Immature Gran % (Auto) 0.8 H Neut % (Auto) 82.4 H Lymph % (Auto) 8.9 L [place] % (Auto) 6.5 Eos % (Auto) 1.1 Baso % (Auto) 0.3 Lymph # (Auto) 0.6 L [place] # (Auto) 0.5 Eos # (Auto) 0.1 Baso # (Auto) 0.0 Abs Immat Gran (auto) 0.06 H Absolute Neuts (auto) 5.9 Absolute Nucleated RBC 0.050 H Nucleated RBC % (auto) 0.7 H Smear Path Review SEE NOTE Anion Gap 14 Estim Creat Clear Calc 90.3 Estimated GFR > 60 Fasting Glucose 130 H Calcium 8.6 Blood Type O Positive Antibody Screen NEGATIVE Crossmatch See Detail Assessment and Plan (1) Status post total knee replacement, right: Status: Acute (2) Normochromic normocytic anemia: Status: Acute Plan 66-year-old gentleman with past medical history of GERD, hypertension former drug user currently on Suboxone admitted to orthopedic service for an elective total knee arthroplasty. Status post total knee arthroplasty postoperative day 2 DC IV Dilaudid,continue oxycodone, celebrex and OxyContin Continue stool softener/PT /IS Hematocrit dropped to 20, 2 units ordered by Ortho, continue ferrous sulfate Hypertension currently soft blood pressure with few high readings, hold lisinopril/hydrochlorothiazide 20/25, follow blood pressure closely, Acute on chronic normocytic anemia , hematocrit dropped to 20.7 rec blood transfusion GERD continue Prilosec History of substance abuse continue Suboxone, stool softener DVT prophylaxis as per Ortho Dispo plan as per Ortho Quality Stroke Does the patient have a stroke diagnosis?: No VTE Prior VTE?: No VTE Risk Level:: Medical - moderate - high VTE Device Contraindication: Treatment Not Indicated VTE Drug Contraindication: N/A - Med Ordered
--- NOTE | 2022-01-04 12:23 | PM.PNORT ---
Subjective Subjective Date of Service: 01/04/22 Interval history: POD2 s/p RTKA. Patient is resting in the chair comfortably. No overnight events. Denies any CP, SOB, Dizziness, abd pain. No additional complaints. Physical Exam Vital Signs: Vital Signs: Last Vital Signs Temp 98.7 F 01/04/22 12:09 Pulse 84 01/04/22 12:09 Resp 16 01/04/22 12:09 BP 116/55 L 01/04/22 12:09 Pulse Ox 97 01/04/22 11:00 O2 Del Method 01/04/22 11:00 O2 Flow Rate 2 01/02/22 12:50 BMI result Body Mass Index 28.8 Const: General: cooperative, healthy appearing and no acute distress Resp: Effort & Inspection: normal respiratory effort and able to speak in complete sentences Cardio: Rate: regular rate Peripheral pulses: Peripheral pulses 2+ throughout GI: Palpation (GI): Soft to palpation Skin: Lesions: no lesions Rashes: no rashes Extrem: Other: Right knee Aquacel is c/d/i/. Able to dorsiflex and plantarflex. NVI. Procedures Date of Service Date of Service: 01/04/22 Progress Note: A&P Assessment and plan (1) Status post total knee replacement, right: Status: Acute Assessment and Plan: Continue pain mgmnt Continue ASA for dvt ppx Continue PT for RTKA H/H drop this morning, will transfuse 2 units PRBCs Dispo planning-Pending PT eval, pain mgmnt (2) Normochromic normocytic anemia: Status: Acute Time Spent With Patient Time: Total time spent is greater than 50% in coordination of care (as documented) at patient's floor/unit and/or counseling patient: Quality Stroke Does the patient have a stroke diagnosis?: No VTE Prior VTE?: No VTE Risk Level:: Medical - moderate - high VTE Device Contraindication: Treatment Not Indicated VTE Drug Contraindication: N/A - Med Ordered
[2022-01-04] MEDS: oxyCODONE HCl Immed Release 5 MG TABLET 10 MG PO ×2 (13:13→17:22)
--- NOTE | 2022-01-04 13:49 | P.CDIC_ITS ---
CDI Concurrent Query Documentation Clarification: PHYSICIAN'S DOCUMENTATION REQUEST Date of Query: 01/04/22 1082 Patient Name: Stuart Rivers Admit Date: 01/02/22 Dear Doctor, A review of the medical record indicates additional documentation may be needed. Please review below and update the documentation accordingly. Risk Factors/Clinical Indicators/Treatments Brief operative note 01/02/22 and Operative Report 01/02/22 state: Left Knee OA Procedure: Left TKA MD Progress note 01/04/22 states: ?Status post total knee replacement, right l Based on the above, could you clarify in the Progress Notes the appropriate diagnosis, if significant, that supports the above abnormalities and additional evaluation, monitoring, and/or treatment rendered: * Please specify the laterality of the knee osteoarthritis and surgerical procedure * Other (please specify) * Unable to determine Use of terms such as suspected, likely, concern for, or probable (associated with a specific diagnosis that is being evaluated, monitored, or treated as if it exists) are acceptable and can be coded in the inpatient setting, when documented at the time of discharge. Thank you, Elizabeth Vergara RN Extension: [phone] Please use your independent medical judgment in providing your response. THIS QUERY IS PART OF THE PERMANENT MEDICAL RECORD Provider Response: Other Other Diagnosis: Correct laterality is RIGHT
[2022-01-04] MEDS: Acetaminophen 325 MG TABLET 650 MG PO (17:23)
--- NOTE | 2022-02-01 09:17 | PM.DS ---
DS: Providers Provider Date of Service: 01/04/22 Date of admission: 01/02/22 06:07 Primary care physician: Kory Velasco MD Consults: 01/02/22 14:31 Consult to Hospitalist Routine Consulting Provider: Hospitalist Reason For Exam: htn DS: Diagnosis Discharge Diagnosis (1) Status post total knee replacement, right: Status: Acute (2) Normochromic normocytic anemia: Status: Inactive DS: Summary Hospital Course Hospital Course: The patient underwent a successful right total knee arthroplasty, was transferred to PACU and then to the floor to recover. During their stay, their vitals were stable, afebrile at 99.0. Labs before discharge were H/H 7.2/20.8, he was transfused with 2 units PRBCs before discharge. POD 1 he was started on ASAfor DVT ppx, he also received PT services twice a day. Prior to discharge, theidressing was change, incision clean dry and intact, new Aquacel dressing applied and the plan was to be discharged home with vna Time Spent with Patient Time attestation: Total time spent providing and/or coordinating discharge services: Discharge coordination time: Less than 30 minutes Quality: Safe Use of Opioids Does Pt have an Active Cancer Diagnosis on the Problem List?: No Quality: Stroke Does the patient have a stroke diagnosis?: No Physical Exam Vital Signs: Vital Signs: Last Vital Signs Temp 99 F 01/04/22 15:52 Pulse 89 01/04/22 15:52 Resp 16 01/04/22 15:52 BP 111/56 L 01/04/22 15:52 Pulse Ox 95 01/04/22 15:00 O2 Del Method 01/04/22 15:00 O2 Flow Rate 2 01/02/22 12:50 BMI result Body Mass Index 28.8 Const: General: cooperative, healthy appearing and no acute distress Resp: Effort & Inspection: normal respiratory effort and able to speak in complete sentences Cardio: Rate: regular rate Peripheral pulses: Peripheral pulses 2+ throughout GI: Palpation (GI): Soft to palpation Skin: General skin exam: no rashes or lesions noted Extrem: Other: incision clean dry and intact. Zaid intact. No erythema or joint effusion. Calf supple nontender. Neurovascularly intact. DS: Data Data Completed and Pending Completed studies during hospitalization [Text1]: Pending at discharge 01/02/22 09:03 Surgical [PTH] Routine Procedures Introduction of Anesthetic Agent into Peripheral Nerves and Plexi, Percutaneous Approach (01/02/22) Replacement of Right Knee Joint with Synthetic Substitute, Uncemented, Open Approach (01/02/22) Transfusion of Nonautologous Red Blood Cells into Peripheral Vein, Percutaneous Approach (01/02/22) Discharge Plan Discharge Patient Disposition: Home Health Service Discharge Diagnosis: s/p RT tka Referrals: Ermelinda Tyson PA-C [Physician Motor Vehicle Or Caravan Salesperson] - 2 Weeks (01/18/22 12:30 [facility] Ermelinda Tyson PA-C) Discharge Medications: New aspirin 325 mg Tablet 325 mg PO BID 42 Days Qty: 84 0RF acetaminophen 325 mg Tablet 650 mg PO Q6H PRN (Reason: Pain, Mild (Pain Scale 1-3)) 30 Days Qty: 240 0RF Continued (DME) walker [facility] See Rx Instructions .MEDSUPPLY Qty: 1 0RF Rx Instructions: Folding Front wheeled walker cyanocobalamin (vitamin B-12) 1,000 mcg tablet 1 tab PO DAILY omeprazole 40 mg capsule,delayed release(DR/EC) 1 cap PO DAILY lisinopril-hydrochlorothiazide 20-25 mg tablet 1 tab PO DAILY buprenorphine-naloxone [Suboxone] 2-0.5 mg film 1 film sublingual TID docusate sodium [Colace] 100 mg capsule 100 mg PO DAILY sennosides [Senna Lax] 8.6 mg tablet 17.2 mg PO DAILY Narcan 4 mg/actuation spray,non-aerosol 1 spray intranasal Q2M PRN (Reason: Opioid Overdose) Rx Instructions: spray 1 dose into ONE nostril; alternate nostrils w each dose until help arrives Held Fish Oil 340-1,000 mg capsule 1 cap PO DAILY Hold Instructions: Resume on 02/13/22. Hold for 6 weeks while taking full dose Aspirin to prevent bleeding. No Action oxycodone 5 mg tablet 5 mg PO Q6H PRN (Reason: Pain, Moderate (Pain Scale 4-6) 7 Days Qty: 28 0RF Rx Instructions: Partial Fill upon patient request. celecoxib [Celebrex] 200 mg capsule 200 mg PO BID 30 Days Qty: 60 3RF Discharge Orders: Discharge Order (Routine); Ordered 01/04/22 Ordered By: Ermelinda Tyson Diet: Regular diet Activity on Discharge: Use cane or walker Stand Alone Forms: Patient Portal Discharge page Care Plan Goals: Restore function of joint Health Concerns: none Plan of Treatment: Physical Therapy Pain management DVT prophylaxis Assessment: Physical Therapy for Total knee arthroplasty: WBAT, gait training, ROM 0-12, quad strength Limit stair climbing No showering, no tub bath-keep dressing clean, dry and intact No driving x6 weeks Continue Aspirin twice a day x 6 weeks Follow up with [facility] in 2 weeks: --you will also have your first out patient PT eval on the day of your post op appt-so please plan on being in the office that day for an extended period of time. Discharge Date/Time: 01/04/22 18:25
== END 2022-01-04 18:25 | disposition home health service (06) | DRG 470 ==
LOC: HO.SSSA 06:07 → HO.S3 11:32
PROVIDERS: Physician Assistant; Admitting Provider Orthopaedic Surgery; PCP Internal Medicine; Visit Provider Orthopaedic Surgery
PROC: 0SRC0JA Replacement of Right Knee Joint with Synthetic Substitute, Uncemented, Open Approach (ICD-10-PCS; CPT 27447; principal; 2022-01-02 07:30)
DX: M17.11 Unilateral primary osteoarthritis, right knee (principal); F11.20 Opioid dependence, uncomplicated; D64.9 Anemia, unspecified; M79.605 Pain in left leg; M79.604 Pain in right leg; K21.9 Gastro-esophageal reflux disease without esophagitis; I10 Essential (primary) hypertension; Z20.822 Contact with and (suspected) exposure to COVID-19; Z79.82 Long term (current) use of aspirin; Z79.899 Other long term (current) drug therapy
CPT/HCPCS: 27447; 36415; 73560; 80048; 85014; 85018; 85025; 86850; 86900; 86901; 86923; 87635; 87640; 87641; 88305; 88311; 93970; 97110; 97116; 97162; 97530; C1776; J0131; J0690; J1170; J1885; J2250; J2550; J2795; P9016

== ENCOUNTER 2022-03-26 12:27 | Outpatient (REF) | payer MEDICARE, OTHER, SELFPAY ==
--- NOTE | ~2022-03-26 | XR_ITS ---
EXAMINATION: KNEE X-RAY CLINICAL INFORMATION: Knee replacement COMPARISON: Previous exams most recent 01/02/2022 TECHNIQUE: Standing AP view of both knees and lateral and sunrise view of the right knee FINDINGS: There is a right knee replacement in satisfactory position. There is a well-corticated soft tissue ossification adjacent to the medial tibial questionable for old trauma versus postoperative changes. This is not appreciably changed from most recent exam. No acute fracture or dislocation or x-ray evidence of loosening is seen. There is a joint effusion. There is prepatellar soft tissue swelling. Standing AP view of the left knee demonstrates joint space narrowing at the medial femoral tibial joint. XR/XR knee standing BI IMPRESSION: Right: Satisfactory appearance of 3 component right knee replacement. Question old trauma to the proximal medial tibia versus postoperative changes. Joint effusion and prepatellar soft tissue swelling. Findings will be communicated by the [place] work flow dog or animal sitter.
--- NOTE | ~2022-03-26 | XR_ITS ---
EXAMINATION: KNEE X-RAY CLINICAL INFORMATION: Knee replacement COMPARISON: Previous exams most recent 01/02/2022 TECHNIQUE: Standing AP view of both knees and lateral and sunrise view of the right knee FINDINGS: There is a right knee replacement in satisfactory position. There is a well-corticated soft tissue ossification adjacent to the medial tibial questionable for old trauma versus postoperative changes. This is not appreciably changed from most recent exam. No acute fracture or dislocation or x-ray evidence of loosening is seen. There is a joint effusion. There is prepatellar soft tissue swelling. Standing AP view of the left knee demonstrates joint space narrowing at the medial femoral tibial joint. XR/XR knee RT 2V IMPRESSION: Right: Satisfactory appearance of 3 component right knee replacement. Question old trauma to the proximal medial tibia versus postoperative changes. Joint effusion and prepatellar soft tissue swelling. Findings will be communicated by the [place] work flow utility maintenance worker.
== END 2022-03-26 12:28 | disposition home or self-care (01) ==
LOC: HO.HOSX 12:27
PROVIDERS: Visit Provider Orthopaedic Surgery
DX: M25.561 Pain in right knee (principal)
CPT/HCPCS: 73560; 73565

== ENCOUNTER 2022-03-27 13:00 | Outpatient (RCR) | payer MEDICARE, OTHER, SELFPAY ==
--- NOTE | 2022-01-18 13:34 | MHC.PT.EP ---
[facility] [place] Office [place] [facility] [place] Office [address] Eliud Manzo [address] [phone] F: [phone] F: [phone] F: [phone] F: [phone] Physical Therapy Plan of Care Date of Evaluation: Date of Surgery: 01/02/22 Diagnosis: S/P RIGHT TKA Assessment: 66 YO MALE REF TO PT REF TO PT S/P TKR ON 01/02/22- HE RESIDES W HIS SPOUSE IN A 1 LEVEL APT W 3 STAIRS TO ENTER AND IS CURRENTLY AMB W A CANE . OBJECTIVE FINDINGS: LIMITED AROM Rt KNEE, TIGHT PSOAS MM [place] AND DECR ANKLE DF [place]; DECR STRENGTH IN PROX / LUMBOPELVIC AND Rt LE, POST-OP PAIN IN RIGHT KNEE ,AND HEALING ANT Rt KNEE INCISION AND HEALING BLISTER Rt LAT MID CALF . FUNCTIONALLY, Pt IS AMB W A CANE- HE HAS COMPENSATORY GAIT, MODIFIED STAIR MGMT, DECR STANDING, SLEEPING, AND DECR JULIO TO MORE CHALLENGING ADLs . HIS PAIN IS WORSE FIRST IN AM AND THEN AT NIGHT. Pt IS A VERY GOOD PT CANDIDATE TO GUIDE HIM IN HIS POST-OP TKR COURSE, ADDRESSING THE ABOVE FINDINGS, PAIN MGMT, AND MAXIMIZING FUNCTIONAL INDEPENDENCE. 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 Manual therapy to restore motion and function. Therapeutic exercise to improve strength and flexibility. Neuromuscular re-education for posture and balance. Therapeutic activities to return to functional activities of daily living. Electronically signed by: Roxanne Clara,PT Please sign and return to therapist. Thank you for your referral.
--- NOTE | 2022-04-03 14:28 | MHC.PT.DC ---
[facility] [place] Office [place] Office [place] Office [address] Eliud Manzo [address] [phone] F: [phone] F: [phone] F: [phone] F: [phone] Physical Therapy Discharge Report Diagnosis: S/P RIGHT TKA Date of Surgery: 01/02/22 Date of Evaluation: 01/18/22 Date of Discharge: 04/03/22 Treatments to Date: 18 Cancellations to Date: No Shows to Date: 2 Discharge Status: Achieved Goals Improved Function Independent with HEP Discharge Summary: Pt has met all goals at this time and demonstrates compliance with HEP. Able to tolerate all activities and demonstrating improvement in self corrections with knee ext throughout gait and standing activities. D/C I with HEP Electronically signed by: Jennifer Holguin PT, DPT Please sign and return to therapist. Thank you for your referral.
== END 2022-04-03 14:28 | disposition home or self-care (01) ==
LOC: HO.PT 13:00
PROVIDERS: Visit Provider Physician Assistant
DX: Z96.651 Presence of right artificial knee joint (principal)
CPT/HCPCS: 97110; 97116; 97140; 97162; 97530

== ENCOUNTER 2023-03-26 09:49 | Outpatient (REF) | payer MEDICARE, OTHER, SELFPAY ==
[2023-03-26 11:59] LABS: HIV AB/AG Nonreactive (Nonreactive); HIV Num 1 0.05 S/CO (0.00-0.99); ~HepC Num1 0.26 S/CO (0.00-0.79); ~Hepatitis C Antibody Nonreactive (Nonreactive)
[2023-03-26 12:02] LABS: Alanine Aminotransferase 5 U/L (0-40); Albumin Level 4.6 g/dL (3.5-5.0); Alkaline Phosphatase 81 U/L (39-117); Aspartate Amino Transferase 15 U/L (5-37); Bilirubin Direct 0.1 mg/dL (0.0-0.5); Bilirubin Total 0.4 mg/dL (0.0-1.0); Total Protein 7.9 g/dL (6.5-8.0)
== END 2023-03-26 09:50 | disposition home or self-care (01) ==
LOC: HO.HHCL 09:49
PROVIDERS: Visit Provider Emergency Medicine
DX: Z11.4 Encounter for screening for human immunodeficiency virus [HIV] (principal); F11.20 Opioid dependence, uncomplicated
CPT/HCPCS: 36415; 80076; 86803; 87389

== ENCOUNTER 2023-07-03 10:16 | Outpatient (REF) | payer MEDICARE, OTHER, SELFPAY ==
[2023-07-03 11:48] LABS: Anion Gap 10 (12-20); Blood Urea Nitrogen 25 mg/dL (9-16); Calcium 9.9 mg/dL (8.4-10.2); Carbon Dioxide 32 mmol/L (22-29); Chloride 99 mmol/L (96-108); Cholesterol 147 mg/dL (<200); Estimated Glomerular Filt Rate > 60; Glucose Random 102 mg/dL (60-115); HDL Cholesterol 30 mg/dL (>40); LDL Cholesterol Calculated 57 mg/dL (<100); Potassium 3.9 mmol/L (3.3-5.1); Sodium 137 mmol/L (135-145); Triglycerides 300 mg/dL (<150)
== END 2023-07-03 10:17 | disposition home or self-care (01) ==
LOC: HO.HHCL 10:16
PROVIDERS: Visit Provider Registered Nurse
DX: Z00.00 Encounter for general adult medical examination without abnormal findings (principal); I10 Essential (primary) hypertension
CPT/HCPCS: 36415; 80048; 80061

== ENCOUNTER 2023-08-12 12:55 | Outpatient (REF) | payer MEDICARE, OTHER, SELFPAY ==
[2023-08-12 13:48] LABS: Basophils Absolute Auto 0.1 X10*3/uL (0.0-0.2); Basophils Percent Auto 0.8 % (0-2); Eosinophils Absolute Auto 0.1 X10*3/uL (0.0-0.4); Hematocrit 32.6 % (42.0-52.0); Hemoglobin 11.3 g/dl (14.0-18.0); Imm Gran Abs Auto 0.15 X10*3/uL (0.00-0.03); Imm Gran Pct Auto 2.5 % (0.0-0.4); Lymphocytes Absolute Auto 1.4 X10*3/uL (1.2-4.9); Lymphocytes Percent Auto 23.5 % (20-40); MANUAL DIFF FLAG NO; Mean Corpuscular HGB Conc 34.7 g/dl (31.0-36.0); Mean Corpuscular Hemoglobin 30.2 pg (27.0-33.0); Mean Corpuscular Volume 87.2 fL (80.0-98.0); Mean Platelet Volume 8.7 fL (9.4-12.4); Monocytes Absolute Auto 0.4 X10*3/uL (0.1-1.2); Monocytes Percent Auto 6.1 % (2-11); Neutrophils Absolute Auto 3.8 x10*3/uL (2.0-8.3); Neutrophils Percent Auto 65.1 % (45-73); Platelet Count 186 X10*3/uL (160-400); Red Blood Count 3.74 X10*6/uL (4.60-5.80); Red Cell Distribution Width 16.1 % (11.0-16.0); White Blood Count 5.9 X10*3/uL (4.8-10.8)
[2023-08-12 13:49] LABS: NRBC Pct Auto 1.2 /100WBC (0.0-0.2)
[2023-08-12 15:03] LABS: Alanine Aminotransferase 7 U/L (0-40); Albumin Level 4.4 g/dL (3.5-5.0); Alkaline Phosphatase 98 U/L (39-117); Anion Gap 11 (12-20); Aspartate Amino Transferase 14 U/L (5-37); Bilirubin Total 0.4 mg/dL (0.0-1.0); Blood Urea Nitrogen 26 mg/dL (9-16); Calcium 9.6 mg/dL (8.4-10.2); Carbon Dioxide 28 mmol/L (22-29); Chloride 100 mmol/L (96-108); Estimated Glomerular Filt Rate > 60; Glucose Random 132 mg/dL (60-115); Potassium 3.8 mmol/L (3.3-5.1); Sodium 135 mmol/L (135-145); Total Protein 7.9 g/dL (6.5-8.0)
[2023-08-12 15:20] LABS: Ferritin 238 ng/mL (20-250)
== END 2023-08-12 12:56 | disposition home or self-care (01) ==
LOC: HO.HHCL 12:55
PROVIDERS: Visit Provider Internal Medicine Medical Oncology
DX: D64.9 Anemia, unspecified (principal)
CPT/HCPCS: 36415; 80053; 82728; 85025

== ENCOUNTER 2024-01-10 08:17 | Outpatient (REF) | payer MEDICARE, OTHER, SELFPAY ==
[2024-01-10 12:08] LABS: Microalbum/Creatinine Ratio Ur 4.8 ug/mg cr (<30)
[2024-01-10 12:16] LABS: Alanine Aminotransferase 36 U/L (0-40); Albumin Level 4.5 g/dL (3.5-5.0); Alkaline Phosphatase 87 U/L (39-117); Anion Gap 15 (12-20); Aspartate Amino Transferase 17 U/L (5-37); Bilirubin Total 0.4 mg/dL (0.0-1.0); Blood Urea Nitrogen 20 mg/dL (9-16); Carbon Dioxide 27 mmol/L (22-29); Chloride 98 mmol/L (96-108); Cholesterol 177 mg/dL (<200); Estimated Glomerular Filt Rate > 60; Glucose Random 100 mg/dL (60-115); HDL Cholesterol 27 mg/dL (>40); Potassium 3.9 mmol/L (3.3-5.1); Sodium 136 mmol/L (135-145); Total Protein 7.9 g/dL (6.5-8.0); Triglycerides 804 mg/dL (<150)
[2024-01-10 12:19] LABS: TSH reflex Free T4 1.33 uIU/mL (0.32-4.0)
[2024-01-10 12:22] LABS: Prostate Specific Antigen 0.37 ng/mL (<0.05-4.0); Vitamin B12 782 pg/mL (200-900)
[2024-01-10 12:38] LABS: Estimated Average Glucose 114 mg/dL; Hemoglobin A1c % 5.6 % (<6.0)
[2024-01-11 07:42] LABS: HBS Num1 52.61 mIU/mL (0-7.99); HBc Num1 0.13 S/CO (0.00-0.79); HBsAGNum1 0.28 S/CO (0.00-0.99); Hepatitis B Core Antibody Nonreactive (Nonreactive); Hepatitis B Surface Antigen Negative (Negative); ~Hepatitis B Surface Antibody REACTIVE (Nonreactive)
== END 2024-01-10 08:18 | disposition home or self-care (01) ==
LOC: HO.HHCL 08:17
PROVIDERS: Visit Provider Registered Nurse
DX: Z00.00 Encounter for general adult medical examination without abnormal findings (principal); R20.0 Anesthesia of skin; R20.2 Paresthesia of skin; Z12.5 Encounter for screening for malignant neoplasm of prostate; Z13.1 Encounter for screening for diabetes mellitus
CPT/HCPCS: 36415; 80053; 80061; 82043; 82570; 82607; 83036; 83735; 84153; 84443; 86704; 86706; 87340

== ENCOUNTER 2024-03-17 13:20 | Outpatient (AMB) | payer MEDICARE, SELFPAY ==
--- NOTE | 2024-03-17 13:26 | A.OFFVIS_ITS ---
Intake Visit Reasons: nocturia Intake Note: New Patient presents for initial visit for nocturia Urology Medications: none Blood Thinner: none PVR: 46ml's Public Address Technician Required: No Accompanied by: Child Allergies No Known Allergies Allergy (Verified 03/17/24 13:52) Medication List - Last Reconciled 03/17/24 by JUAN DAVID Rowland buprenorphine ER (Sublocade) mg subcut carbidopa-levodopa 25-100 mg 2 tabs PO BID cyanocobalamin (vitamin B-12) 1 tab PO DAILY lisinopril-hydrochlorothiazide 20-25 mg 1 tab PO DAILY omega-3 fatty acids-fish oil 340-1,000 mg (Fish Oil) 1 cap PO DAILY ramelteon 8 mg PO BEDTIME rosuvastatin 20 mg PO BEDTIME selegiline HCl 5 mg PO BID sennosides (Senna Lax) 17.2 mg PO DAILY walker Folding Front wheeled walker HPI Comments Details: Abel is a very pleasant 68-year-old male patient of Dr. Velasco who is accompanied by his grandson at today's office visit. He has a past medical history of GERD, hypertension, and anemia. He presents to the office today as a new patient for nocturia. In discussion with the patient today he reports noting intermittent episodes of nocturia up to 4 times per night however this is not every night. He discusses having followed up with his PCP regarding this issue at which time recommendations were made for urology referral for further assessment evaluation. In review of patient's chart it appears a PSA was ordered and obtained. These results reviewed with the patient today. 01/27 0.4. He otherwise denies any bothersome urinary issues. He denies urinary urgency, urinary frequency, incontinence, hematuria, dysuria, foul smelling urine, changes to urinary stream, flank pain, fever, and or chills. In office urinalysis results reviewed with the patient today. We discussed obtaining retroperitoneal ultrasound for further assessment evaluation as well as lifestyle modifications to assist with nocturia. He denies any signs and symptoms of sleep apnea. PVR 46 mL He otherwise offers no other issues or concerns at this time. [facility] Medical History GERD (gastroesophageal reflux disease) HTN (hypertension) Normochromic normocytic anemia Surgical History History of right knee surgery History of surgery History of esophagogastroduodenoscopy (EGD) Hx of colonoscopy Family History Maternal Aunt Cancer Social History Household Members: Spouse Housing: House Are you a primary patient care director to a significant other at home: No Do you presently have visiting nurse or other home services: No Alcohol intake: never Patient Tobacco Use Status: Never used Tobacco Substance Use Type: Former Substance User service: No Current occupational status: retired Current occupation: right handed/ landscaping Review of Systems Const All systems reviewed & are unremarkable except as noted in HPI and below Physical Exam Const General: cooperative, comfortable, no acute distress, well developed, alert and awake Orientation/consciousness: patient oriented x3 Limitations: no limitations HEENT Head: Yes normal to inspection, Yes normocephalic and Yes atraumatic Ears: hearing grossly normal bilaterally Eyes General: appearance normal, both eyes and all related structures Neck Neck: Yes normal visual inspection and Yes trachea midline Chest Chest palpation & inspection: normal inspection of the chest Resp Effort & Inspection: normal respiratory effort and able to speak in complete sentences Cardio Rate: regular rate GI Inspection: Yes normal to inspection General: Yes no CVA tenderness Back/Spine/Pelvis Back: no CVA tenderness Skin General skin exam: no rashes or lesions noted Neuro General: patient oriented x3 Extrem General: Yes normal to inspection Psych Appearance: grossly normal and well kempt Mental Status: mental status grossly normal Speech and movement: Normal speech and movement present and Clear speech present Affect: normal affect Attitude: cooperative Thought process: Normal thought process present Thought content: Normal thought content present Insight: Fair insight present (Psych) Judgement: Fair judgement present (Psych) Office Procedures Post Void Residual Post Residual Void Post Void Residual (PVR): 46 36607-[id number] Void Residual by ultrasound Results AMB Urinalysis, Automated UA Leukoctes 0 Jnaa/uL Last Edit by XINGrajendra Perez on 03/17/24 13:45 UA Nitrite Last Edit by Quincy Apparelthalia Perez on 03/17/24 13:45 UA Urobilinogen 0.2 mg/dL Last Edit by SilvinoFameBitrajendra Perez on 03/17/24 13:45 UA Protein 15 mg/dL Last Edit by XINGrajendra Unboundsybil on 03/17/24 13:45 UA pH 7.0 Last Edit by [employer]sybil on 03/17/24 13:45 UA Blood 0 José Miguel/uL Last Edit by [employer] on 03/17/24 13:45 UA Specific [place] 1.015 Last Edit by [employer] on 03/17/24 13:45 UA Ketone Last Edit by XINGrajendra Unboundsybil on 03/17/24 13:45 UA Bilirubin 0 mg/dL Last Edit by [employer] on 03/17/24 13:45 UA Glucose 0 mg/dL Last Edit by XINGrajendra Unboundsybil on 03/17/24 13:45 Results Reviewed Results Reviewed: Laboratory Last Values Urine pH (Auto) 7.0 03/17/24 13:44 Specific [place] (Auto) 1.015 03/17/24 13:44 Urine Protein (Auto) 15 mg/dL 03/17/24 13:44 Glucose (UA)(Auto) 0 mg/dL 03/17/24 13:44 Urine Blood (Auto) 0 José Miguel/uL 03/17/24 13:44 Urine Bilirubin (Auto) 0 mg/dL 03/17/24 13:44 Urine Urobilinogen (Auto) 0.2 mg/dL 03/17/24 13:44 Leukocyte Esterase (Auto) 0 Jana/uL 03/17/24 13:44 Assessment & Plan Assessment & Plan (1) Nocturia: Code(s): R35.1 - Nocturia Category: Medical Plan In office urinalysis results reviewed with the patient today; as noted above. PVR 46 mL Recent PSA results reviewed with the patient today; as noted above. Will obtain retroperitoneal ultrasound for further assessment evaluation. Discussed lifestyle modifications to assist with nocturia. We discussed potential causes of nocturia Discussed possible near future in office cystoscopy and or urodynamics for further assessment evaluation if symptoms persist and/or worsen. Discussed obtaining bladder diary. Follow-up in 3 months with imaging to be completed prior and PVR; or sooner with any issues, concerns, and or questions. Orders: Orders AMB Urinalysis Automated Today Z13.9 - Encounter for screening, unspecified AMB Post Void Residual by ultrasound Today Z13.9 - Encounter for screening, unspecified US retroperitoneal comp Today R35.1 - Nocturia Patient Instructions: The patient had an opportunity to ask questions regarding the treatment plan. All questions were answered. Physical exam, labs, and imaging were discussed and reviewed in detail. As well as risks, benefits, and discussion of treatment choices. No major barriers to understanding were identified. The patient expressed understanding and agreement with the above treatment plan. The patient was made aware they should contact our office by phone for worsening of their current condition, the appearance of new symptoms, or with any questions or concerns. Compliance is encouraged with any medications and follow up testing that is ordered. It is a privilege to be allowed the opportunity to participate in? your urological care.? Again, if you have any questions or concerns If you have any questions or concerns please do not hesitate to contact me. The office is [phone]. This note is constructed using voice recognition software. While every effort has been made to ensure accuracy biological science aide errors may have been included. Yours sincerely, JUAN DAVID Rowland Coding Level of Care Code New Pt Level 3 (72700) Diagnoses Nocturia R35.1 CPT Codes Post Residual Void - PVR CPT Code: 73303-Jbul Void Residual by ultrasound ([id number])
== END 2024-03-17 13:58 | disposition home or self-care (01) ==
PROVIDERS: PCP Internal Medicine; Visit Provider Nurse Practitioner Family
DX: R35.1 Nocturia (principal); Z13.9 Encounter for screening, unspecified
CPT/HCPCS: 99203

== ENCOUNTER → 2024-03-17 13:20 | Outpatient (BNVA) | payer MEDICARE, OTHER, SELFPAY | PROVIDERS: PCP Internal Medicine; Visit Provider Nurse Practitioner Family | DX: R35.1 Nocturia (principal) | CPT/HCPCS: 51798; 81003; 99202 ==

== ENCOUNTER 2024-03-27 09:39 | Outpatient (REF) | payer MEDICARE, SELFPAY | END 2024-03-27 09:40 | disposition home or self-care (01) | LOC: HO.US 09:39 | PROVIDERS: PCP Registered Nurse; Visit Provider Nurse Practitioner Family | DX: R35.1 Nocturia (principal) | CPT/HCPCS: 76770 ==

== ENCOUNTER 2024-05-18 15:10 | Outpatient (AMB) | payer MEDICARE, SELFPAY ==
--- NOTE | 2024-05-18 15:12 | A.OFFVIS_ITS ---
Intake Visit Reasons: 2 month follow up/ US(set) Intake Note: Patient is present for 2M F/U US Urology Medication:VITAMIN B12 Antibiotic Allergy:NONE Blood Thinner:NONE TODAY'S PVR:0ML'S Route Delivery Driver Required: No Allergies No Known Allergies Allergy (Verified 05/18/24 15:13) HPI Comments Details: Stuart is a very pleasant 69-year-old male patient of Dr. Velasco. He has a past medical history of GERD, hypertension, and anemia. He presents to the office today for follow-up. Of note, patient was seen approximately 2 months ago as a new patient for nocturia at which time a retroperitoneal ultrasound was ordered for further assessment evaluation. These results remain pending however unofficial results reviewed with the patient today. Bilateral kidneys with renal cysts. No hydronephrosis or renal calculi noted bilaterally. Pre void bladder volume is approximately 122 mL. Postvoid bladder volume is approximately 5 mL. Prostate is enlarged measuring approximately 32 mL. Patient reports since his last office visit here he has been performing lifestyle modifications that were discussed during last office visit in limiting fluids 2-3 hours prior to bed and feels this has significantly improved his nocturia. He reports he is now only getting up 1 time per night. PSA 01/27 0.4. He otherwise denies any bothersome urinary issues. He denies urinary urgency, urinary frequency, incontinence, hematuria, dysuria, foul smelling urine, changes to urinary stream, flank pain, fever, and or chills. In office urinalysis results reviewed with the patient today. PVR 0 mL. He otherwise offers no other issues or concerns at this time. [facility] Medical History GERD (gastroesophageal reflux disease) HTN (hypertension) Normochromic normocytic anemia Surgical History History of right knee surgery History of surgery History of esophagogastroduodenoscopy (EGD) Hx of colonoscopy Family History Maternal Aunt Cancer Social History Household Members: Spouse Housing: House Are you a primary day care supervisor to a significant other at home: No Do you presently have visiting nurse or other home services: No Alcohol intake: never Patient Tobacco Use Status: Never used Tobacco Substance Use Type: Former Substance User service: No Current occupational status: retired Current occupation: right handed/ landscaping Review of Systems Const All systems reviewed & are unremarkable except as noted in HPI and below Physical Exam Const General: cooperative, healthy appearing, comfortable, no acute distress, well developed, alert and awake Orientation/consciousness: patient oriented x3 Limitations: no limitations HEENT Head: Yes normal to inspection, Yes normocephalic and Yes atraumatic Ears: hearing grossly normal bilaterally Eyes General: appearance normal, both eyes and all related structures Neck Neck: Yes normal visual inspection and Yes trachea midline Chest Chest palpation & inspection: normal inspection of the chest Resp Effort & Inspection: normal respiratory effort and able to speak in complete sentences Cardio Rate: regular rate GI Inspection: Yes normal to inspection General: Yes no CVA tenderness Back/Spine/Pelvis Back: no CVA tenderness Skin General skin exam: no rashes or lesions noted Neuro General: patient oriented x3 Extrem General: Yes normal to inspection Psych Appearance: grossly normal and well kempt Mental Status: mental status grossly normal Speech and movement: Normal speech and movement present and Clear speech present Affect: normal affect Attitude: cooperative Thought process: Normal thought process present Thought content: Normal thought content present Insight: Fair insight present (Psych) Judgement: Fair judgement present (Psych) Office Procedures Post Void Residual Post Residual Void Post Void Residual (PVR): 0 [id number]-[id number] Void Residual by ultrasound Results AMB Urinalysis, Automated UA Leukoctes 0 Jana/uL Last Edit by PEDRO Mejias on 05/18/24 15:23 UA Nitrite Negative Last Edit by PEDRO Mejias on 05/18/24 15:23 UA Urobilinogen 0.2 mg/dL Last Edit by PEDRO Mejias on 05/18/24 15:2 3 UA Protein 15 mg/dL Last Edit by PEDRO Mejias on 05/18/24 15:23 UA pH 6.0 Last Edit by PEDRO Mejias on 05/18/24 15:23 UA Blood 10 José Miguel/uL Last Edit by PEDRO Mejias on 05/18/24 15:23 UA Specific [place] 1.020 Last Edit by PEDRO Mejias on 05/18/24 15: 23 UA Ketone Positive Last Edit by PEDRO Mejias on 05/18/24 15:23 UA Bilirubin 0 mg/dL Last Edit by PEDRO Mejias on 05/18/24 15:23 UA Glucose 0 mg/dL Last Edit by PEDRO Mejias on 05/18/24 15:23 Results Reviewed Results Reviewed: Laboratory Last Values Urine pH (Auto) 6.0 05/18/24 15:22 Specific [place] (Auto) 1.020 05/18/24 15:22 Urine Protein (Auto) 15 mg/dL 05/18/24 15:22 Glucose (UA)(Auto) 0 mg/dL 05/18/24 15:22 Urine Ketones (Auto) Positive 05/18/24 15:22 Urine Blood (Auto) 10 José Miguel/uL 05/18/24 15:22 Urine Nitrite (Auto) Negative 05/18/24 15:22 Urine Bilirubin (Auto) 0 mg/dL 05/18/24 15:22 Urine Urobilinogen (Auto) 0.2 mg/dL 05/18/24 15:22 Leukocyte Esterase (Auto) 0 Jana/uL 05/18/24 15:22 Assessment & Plan Assessment & Plan (1) Nocturia: Code(s): R35.1 - Nocturia Category: Medical (2) Enlarged prostate: Code(s): N40.0 - Benign prostatic hyperplasia without lower urinary tract symptoms Category: Medical (3) Renal cyst: Code(s): N28.1 - Cyst of kidney, acquired Category: Medical Plan In office urinalysis results reviewed with the patient today; as noted above. PVR 0 mL. Recent unofficial retroperitoneal ultrasound results reviewed with the patient today; as noted above. Will continue with lifestyle modifications and limit fluids 2-3 hours prior to bed. Patient currently denies any bothersome urinary issues or concerns. He reports be happy with current voiding parameters. Follow-up in 1 year with PSA and PVR; or sooner with any issues, concerns, and or questions. Orders: Orders AMB Urinalysis Automated Today Z13.9 - Encounter for screening, unspecified Prostate Specific Antigen 1 Year N40.0 - Benign prostatic hyperplasia without lower urinary tract symptoms, R35.1 - Nocturia Patient Instructions: The patient had an opportunity to ask questions regarding the treatment plan. All questions were answered. Physical exam, labs, and imaging were discussed and reviewed in detail. As well as risks, benefits, and discussion of treatment choices. No major barriers to understanding were identified. The patient expressed understanding and agreement with the above treatment plan. The patient was made aware they should contact our office by phone for worsening of their current condition, the appearance of new symptoms, or with any questions or concerns. Compliance is encouraged with any medications and follow up testing that is ordered. It is a privilege to be allowed the opportunity to participate in? your urological care.? Again, if you have any questions or concerns If you have any questions or concerns please do not hesitate to contact me. The office is [phone]. This note is constructed using voice recognition software. While every effort has been made to ensure accuracy acid purifier errors may have been included. Yours sincerely, JUAN DAVID Rowland Coding Level of Care Code Est Pt Level 3 (77079) Diagnoses Nocturia R35.1 Enlarged prostate N40.0 Renal cyst N28.1 CPT Codes Post Residual Void - PVR CPT Code: 59434-Uyaj Void Residual by ultrasound ([id number])
== END 2024-05-18 15:36 | disposition home or self-care (01) ==
PROVIDERS: PCP Internal Medicine; Visit Provider Nurse Practitioner Family
DX: R35.1 Nocturia (principal); N40.0 Benign prostatic hyperplasia without lower urinary tract symptoms; N28.1 Cyst of kidney, acquired; Z13.9 Encounter for screening, unspecified
CPT/HCPCS: 99213

== ENCOUNTER → 2024-05-18 15:10 | Outpatient (BNVA) | payer MEDICARE, OTHER, SELFPAY | PROVIDERS: PCP Internal Medicine; Visit Provider Nurse Practitioner Family | DX: R35.1 Nocturia (principal); N40.0 Benign prostatic hyperplasia without lower urinary tract symptoms; N28.1 Cyst of kidney, acquired | CPT/HCPCS: 51798; 81003; 99212 ==

== ENCOUNTER 2024-09-16 10:58 | Outpatient (REF) | payer MEDICARE, SELFPAY ==
--- OUTSIDE RECORDS SUMMARY | 2024-09-16 12:01 | XMS_ITS | Encounter Summary ---
Author Organization [employer] Address [address] [facility] 7t [place] [address] Care Team Providers Care Hardboard Panel Printer Name Role Phone Bita Alvarez DIANA Primary Care Provider [phone] Reason for Visit * Reason Comments Med Refill Encounter Details Date Type Department Care Team (Late st Contact Info) Description 10/29/2023 Refill [facility] [address] [place], [place] [phone] Israel Quigley MD [address] [place], [place] [phone] Opioid dependence, uncomplicated (CMS/HCC) Social History Tobacco Use Types Packs/Day Years Used Date Smoking Tobacco: Never Passive Smoke Exposure: Never Smokeless Tobacco: Never Alcohol Use Standard Drinks/Week Comments Never 0 (1 standard drink = 0.6 oz pur e alcohol) Depression Answer Date Recorded Patient Health Questionnaire-9 Score 0 09/21/2022 Housing Stability Answer Date Recorded What is your housing situation today? I have catrachito jay 10/16/[address] you li ve. Do you have problems with any of the following? None of the above 10/16/2023 Food Insecurity Answer Date Recorded Within the past 12 months, y ou worried that your food would run out before you got money to buy more: Never True 10/16/2023 Within the past 12 months,th e food you bought just didn't last and you didn't have enough money to get more: Never True 04/2024 Transportation Answer Date Recorded In the past 12 months, has l ack of transportation kept you from medical appts, meetings, work or from getting things needed for daily living? No 10/16/2023 Utilities Answer Date Recorded In the past 12 months, has t he electric, gas, oil or water company threatened to shut off services in your home? No 10/16/2023 Depression Answer Date Recorded Patient Health Questionnaire-2 Score 0 09/21/2022 Sex and Gender Information Value Date Recorded Sex Assigned at Male 03/05/2022 10:16 AM EDT Legal Sex Male 10:16 AM EDT Gender Identity Male 03/05/2022 10:16 AM EDT Sexual Orientation Straight 03/05/2022 10 :16 AM EDT documented as of this encounter Plan of Treatment Upcoming Encounters Date Type Department Care Team (Late st Contact Info) Description 09/18/2024 9:00 AM EDT Office Visit [facility] [address] [place] [address] Israel Quigley MD [address] [place] [phone] 10/30/2024 9:00 AM EDT Office Visit [facility] [address] [place] [address] Israel Quigley MD [address] [place] [phone] documented as of this encounter Visit Diagnoses Diagnosis Opioid dependence, uncomplicated (CMS/HCC) documented in this encounter Additional Health Concerns Assessment Noted Time PHQ-9 Depression Total Score: 0 09/22/19 3:11 PM EDT documented as of this encounter Care Teams Hardboard Panel Printer Relationship Specialty Start Date End Date Bita Alvarez FNP [address] [place] [address] PCP - General Family Medicine 07/16/22 documented as of this encounter
--- OUTSIDE RECORDS SUMMARY | 2024-09-16 12:01 | XMS_ITS | Encounter Summary ---
Author Organization [employer] Address [facility] 7t [place] [address] Care Team Providers Care Building Operator Name Role Phone Bita Alvarez Primary Care Provider [phone] Reason for Visit * Reason Comments Med Refill Encounter Details Date Type Department Care Team (Late st Contact Info) Description 05/04/[address] [facility] [address] [place] [address] Bita Alvarez FNP [address] [place] [address] Social History Tobacco Use Types Packs/Day Years Used Date Smoking Tobacco: Never Passive Smoke Exposure: Never Smokeless Tobacco: Never Alcohol Use Standard Drinks/Week Comments Never 0 (1 standard drink = 0.6 oz pur e alcohol) Alcohol Answer Date Recorded Frequency of Alcohol Consumption Not on file 01/01/2024 Average Number of Drinks Not on file 024 Frequency of Binge Drinking Not on file 12/05 Score 0 01/01/2024 Depression Answer Date Recorded Patient Health Questionnaire-9 Score 2 01/02/2024 Patient Health Questionnaire-9 Score 2 01/02/2024 Last PHQ-9: Questionnaire Data Not on file 0 01/02/2024 Housing Stability Answer Date Recorded What is [...] Date Recorded Patient Health Questionnaire-2 Score 0 01/02/2024 Internet Access Answer Date Recorded Internet Access Q1 Yes 01/06/2024 Internet Access Q2 Not on file 01/06/2024 Sex and Gender Information Value Date Recorded Sex Assigned at Male 03/05/2022 10:16 AM EDT Legal Sex Male 10:16 AM EDT Gender Identity Male 03/05/2022 10:16 AM EDT Sexual Orientation Straight 03/05/2022 10 :16 AM EDT documented as of this encounter Plan of Treatment Upcoming Encounters Date Type Department Care Team (Late st Contact Info) Description 09/18/2024 9:00 AM EDT Office Visit [facility] [address] [place] [address] Israel Quigley MD [address] [place] [address] 10/30/2024 9:00 AM EDT Office Visit [facility] [address] [place] [address] Israel Quigley MD [address] [place] [address] documented as of this encounter Visit Diagnoses Not on filedocumented in this encounter Additional Health Concerns Assessment Noted Time PHQ-9 Depression Total Score: 2 01/02/20 24 8:17 PM EDT documented as of this encounter Care Teams Building Operator Relationship Specialty Start Date End Date Bita Alvarez FNP [address] [place] [phone] PCP - General Family Medicine 07/16/22 documented as of this encounter
--- OUTSIDE RECORDS SUMMARY | 2024-09-16 12:01 | XMS_ITS | Encounter Summary ---
Author Organization [employer] Address [address] [facility] 7t [place] [address] Care Team Providers Care Financial Analysis Advisor Name Role Phone Bita Alvarez Primary Care Provider [phone] Reason for Visit * Reason Comments Med Refill Encounter Details Date Type Department Care Team (Late st Contact Info) Description 02/25/2023 Refill [facility] [address] [place] [address] Bita Alvarez FNP [address] [place] [address] Social History Tobacco Use Types Packs/Day Years Used Date Smoking Tobacco: Never Passive Smoke Exposure: Never Smokeless Tobacco: Never Alcohol Use Standard Drinks/Week Comments Never 0 (1 standard drink = 0.6 oz pur e alcohol) Depression Answer Date Recorded Patient Health Questionnaire-9 Score 0 09/21/2022 Housing Stability Answer Date Recorded What is your housing situation today? I have catrachito jay 02/23/[address] you li ve. Do you have problems with any of the following? None of the above 02/23/2023 Food Insecurity Answer Date Recorded Within the past 12 months, y ou worried that your food would run out before you got money to buy more: Never True 02/23/2023 Within the past 12 months,th e food you bought just didn't last and you didn't have enough money to get more: Never True Transportation Answer Date Recorded In the past 12 months, has l ack of transportation kept you from medical appts, meetings, work or from getting things needed for daily living? No 02/23/2023 Utilities Answer Date Recorded In the past 12 months, has t he electric, gas, oil or water company threatened to shut off services in your home? No 02/23/2023 Depression Answer Date Recorded Patient Health Questionnaire-2 [...] Description 09/18/2024 9:00 AM EDT Office Visit [facility] [address] [place] [address] Israel Quigley MD [address] [place] [address] 10/30/2024 9:00 AM EDT Office Visit [facility] [address] [place] [address] Israel Quigley MD [address] [place] [address] documented as of this encounter Visit Diagnoses Not on filedocumented in this encounter Additional Health Concerns Assessment Noted Time PHQ-9 Depression Total Score: 0 09/22/19 3:11 PM EDT documented as of this encounter Care Teams Financial Analysis Advisor Relationship Specialty Start Date End Date Bita Alvarez FNP [address] [place] [phone] PCP - General Family Medicine 07/16/22 documented as of this encounter
--- OUTSIDE RECORDS SUMMARY | 2024-09-16 12:01 | XMS_ITS | Encounter Summary ---
Author Organization [employer] Address [address] [facility] 7t [place] [address] Care Team Providers Care Cooperative Education Director Name Role Phone Bita Alvarez DIANA Primary Care Provider Encounter Details Date Type Department Care Team (Latest Contact Info) Description 09/16/2024 Travel Social History Tobacco Use Types Packs/Day Years [...] Answer Date Recorded Patient Health Questionnaire-9 Score 4 09/16/2024 Patient Health Questionnaire-9 Score 4 09/16/2024 Last PHQ-9: Questionnaire Data Not on file 0 09/16/2024 Housing Stability Answer Date Recorded What is [...] Date Recorded Patient Health Questionnaire-2 Score 0 09/16/2024 Internet Access Answer Date Recorded Internet Access Q1 Yes 01/06/2024 Internet Access Q2 Not on file 01/06/2024 Sex and Gender Information Value Date Recorded Sex Assigned at Male 03/05/2022 10:16 AM EDT Legal Sex Male 10:16 AM EDT Gender Identity Male 03/05/2022 10:16 AM EDT Sexual Orientation Straight 03/05/2022 10 :16 AM EDT documented as of this encounter Functional Status * Over the past 2 weeks, how often have you been bothered by any of the following problems? Question Answer Date of Assessment Author Patient Health Questionnaire-2 Score 0 09/16/2024 10:03 AM EDT Twyla Salcido MA * Little interest or pleasure in doing things Answer Date of Assessment Author Not at all 09/16/2024 10:03 AM EDT Twyla Salcido MA * Feeling down, depressed, or hopeless Answer Date of Assessment Author Not at all 09/16/2024 10:03 AM EDT Twyla Salcido MA * Trouble falling or staying asleep, or sleeping too much Answer Date of Assessment Author More than half the days 09/16/2024 10:03 AM EDT Twyla Salcido MA * Feeling tired or having little energy Answer Date of Assessment Author More than half the days 09/16/2024 10:03 AM EDT Twyla Salcido MA * Poor appetite or overeating Answer Date of Assessment Author Not at all 09/16/2024 10:03 AM EDT Twyla Salcido MA * Feeling bad about yourself - or that you are a failure or have let yourself or your family down Answer Date of Assessment Author Not at all 09/16/2024 10:03 AM EDT Twyla Salcido MA * Trouble concentrating on things, such as reading the newspaper or watching television Answer Date of Assessment Author Not at all 09/16/2024 10:03 AM EDT Twyla Salcido MA * Moving or speaking so slowly that other people could have noticed? Or the opposite - being so fidgety or restless that you have been moving around a lot more than usual. Answer Date of Assessment Author Not at all 09/16/2024 10:03 AM EDT Twyla Salcido MA * Thoughts that you would be better off or hurting yourself in some way Answer Date of Assessment Author Not at all 09/16/2024 10:03 AM EDT Twyla Salcido MA * Patient Health Questionnaire-9 Score Answer Date of Assessment Author 4 09/16/2024 10:03 AM EDT Twyla Salcido MA * How difficult have these problems made it for you to do your work, take care of things at home, or get along with other people? Answer Date of Assessment Author Somewhat difficult 09/16/2024 10:03 AM EDT Twyla Ybarra MA documented as of this encounter Plan of Treatment Upcoming Encounters Date Type Department Care Team (Late st Contact Info) Description 09/18/2024 9:00 AM EDT Office Visit [facility] [address] [place] [address] Israel Quigley MD [address] [place] [address] 10/30/2024 9:00 AM EDT Office Visit [facility] [address] [place] [address] Israel Quigley MD [address] [place] [phone] documented as of this encounter Visit Diagnoses Not on filedocumented in this encounter Additional Health Concerns Assessment Noted Time PHQ-9 Depression Total Score: 4 09/17/19 25 10:03 AM EDT documented as of this encounter Care Teams Cooperative Education Director Relationship Specialty Start Date End Date Bita Alvarez FNP [address] [place] [address] PCP - General Family Medicine 07/16/22 documented as of this encounter
--- OUTSIDE RECORDS SUMMARY | 2024-09-16 12:01 | XMS_ITS | Clinical Summary ---
Author Organization [facility] Address [address] [address] Care Team Providers Care Quality Process Auditor Name Role Phone Unavailable Primary Care Provider Unavailabl e Social History Tobacco Use Types Packs/Day Years Used Date Smoking Tobacco: Never Assessed Sex and Gender Information Value Date Recorded Sex Assigned at Not on file Legal Sex Male 4:47 PM EST Gender Identity Not on file Sexual Orientation Not on file Plan of Treatment Health Maintenance Due Date Last Done Comments Colorectal Cancer Screening: Annual FOBT 2003 Colorectal Cancer Screening: Colonoscopy 2003 Colorectal Cancer Screening: Sigmoidoscopy 2003 Pneumococcal Vaccine: 50+ Ye ars (1 of 1 - PCV) 2004 Influenza Vaccine (Season Ended) 2025 Hepatitis B Vaccine Aged Out No longe r eligible based on patient's age to complete this topic
--- OUTSIDE RECORDS SUMMARY | 2024-09-16 12:01 | XMS_ITS | Encounter Summary ---
Author Organization [employer] Address [address] [facility] 7t [place] [address] Care Team Providers Care Secretary Specialist Name Role Phone Bita Alvarez Primary Care Provider [phone] Reason for Visit * Reason Onset Date Comments Chart Prep 09/15/2024 Encounter Details Date Type Department Care Team ([facility] st Contact Info) Description 09/15/2024 Telephone [facility] [address] [place] [address] Bita Alvarez FNP [address] [place] [address] Chart Prep Social History Tobacco Use Types Packs/Day Years [...] AM EDT documented as of this encounter Miscellaneous Notes * Telephone Encounter - Twyla Guillen MA - 09/15/2024 1:24 PM EDT Chart Prep Labs: not done Images: done Referrals: complete Vaccines due: Zoster Screenings: not applicable Overdue care gaps: Disability screen documented in this encounter Plan of Treatment Upcoming Encounters Date Type Department Care Team (Late st Contact Info) Description 09/18/2024 9:00 AM EDT Office Visit [facility] [address] [place] [address] Israel Quigley MD [address] [place] [address] 10/30/2024 9:00 AM EDT Office Visit [facility] [address] [place] [address] Israel Quigley MD [address] [place] [address] documented as of this encounter Visit Diagnoses Not on filedocumented in this encounter Additional Health Concerns Assessment Noted Time PHQ-9 Depression Total Score: 2 01/02/20 24 8:17 PM EDT documented as of this encounter Care Teams Secretary Specialist Relationship Specialty Start Date End Date Bita Alvarez FNP [address] [place] [address] PCP - General Family Medicine 07/16/22 documented as of this encounter
--- OUTSIDE RECORDS SUMMARY | 2024-09-16 12:01 | XMS_ITS | Encounter Summary ---
Author Organization [employer] Address [address] [facility] 7t [place] [address] Care Team Providers Care Air Conditioning Sheet Metal Installer Name Role Phone Bita Alvarez Primary Care Provider [phone] Encounter Details Date Type Department Care Team ([facility] st Contact Info) Description 09/16/2024 9:45 AM EDT Office Visit [facility] [address] [place] [address] Bita Alvarez FNP [address] [place] [address] Constipation due to opioid therapy; Long-term current use of opiate analgesic Social History Tobacco Use Types Packs/Day Years [...] AM EDT documented as of this encounter Last Filed Vital Signs Vital Sign Reading Time Taken Comments Blood Pressure 134/69 09/16/2024 9:54 AM EDT Pulse 74 09/16/2024 9:54 AM EDT Temperature 36.4 ??C (97.5 ??F) 09/16/2024 9:54 AM ED T Respiratory Rate 18 09/16/2024 9:54 AM EDT Oxygen Saturation 98% 09/16/2024 9:54 AM EDT Inhaled Oxygen Concentration - - Weight 86.6 kg (191 lb) 09/16/2024 9:54 AM EDT Height 173 cm (5' 8.11 ) 09/16/2024 9:54 AM EDT Body Mass Index 28.95 09/16/2024 9:54 AM EDT documented in this encounter Functional Status * Over the [...] Author Not at all 09/16/2024 10:03 AM TAHIRAT Twyla Salcido MA * Moving or speaking so slowly that other people could have noticed? Or the opposite - being so fidgety or restless that you have been moving around a lot more than usual. Answer Date of Assessment Author Not at all 09/16/2024 10:03 AM EDTwyla Martinez MA * Thoughts that you would be better off or hurting yourself in some way Answer Date of Assessment Author Not at all 09/16/2024 10:03 AM EDT Twyla Salcido MA * Patient Health Questionnaire-9 Score Answer Date of Assessment Author 4 09/16/2024 10:03 AM EDTwyla Martinez MA * How difficult have these problems [...] Description 09/18/2024 9:00 AM EDT Office Visit [facility] [place] [address] Israel Quigley MD [address] [place] [address] [phone] 10/30/2024 9:00 AM EDT Office Visit [facility] [address] [place] [address] Israel Quigley MD [address] [place], [place] [phone] documented as of this encounter Procedures Procedure Name Priority Date/Time Associated Diagnosis Comments POCT TOMEKA-14 URINE DRUG SCREEN Routine 09/16/2024 10:39 AM EDT Long-term current use of opiate analgesic documented in this encounter Results * POCT TOMEKA-14 Urine Drug Screen (09/16/2024 10:39 AM EDT) THC Negative Cocaine Screen, Urine Negative Opiate Screen, Urine Negative Methamphetamine Screen Urine Negative Amphetamine Screen, Urine Negative Benzodiazepines Screen, Urine Negative Barbiturate Screen, Urine Negative Methadone Screen, Urine Negative Buprenophine Screen, Urine Positive TCA, Urine Negative MDMA Urine Negative ng/mL Oxycodone Screen, Urine Negative Phencyclidine (PCP), Urine Negative Propoxyphene, Urine Negative Fentanyl, Urine Negative Urine Urine specimen obtained by clean catch procedure / Unknown 09/16/2024 10:39 AM EDT Narrative Twyla Salcido MA - 09/16/2024 10:39 AM EDT LOT: [id number] Exp: 03-05-2026 Bita ORTIZ POINT OF CARE TEST ENTER/EDIT ORDERABLES Final Result documented in this encounter Visit Diagnoses Diagnosis Constipation due to opioid therapy Long-term current use of opiate analgesic Encounter for long-term (current) use of other medications documented in this encounter Additional Health Concerns Assessment Noted Time PHQ-9 Depression Total Score: 4 09/17/19 25 10:03 AM EDT documented as of this encounter Care Teams Air Conditioning Sheet Metal Installer Relationship Specialty Start Date End Date Bita Alvarez FNP [address] [place] [address] PCP - General Family Medicine 07/16/22 documented as of this encounter
--- OUTSIDE RECORDS SUMMARY | 2024-09-16 12:01 | XMS_ITS | Encounter Summary ---
Author Organization [employer] Address 75 [facility] 7t [place] [address] Care Team Providers Care Senior Technical Program Manager Name Role Phone Bita Alvarez DIANA Primary Care Provider [phone] Reason for Visit * Reason Comments Med Refill Encounter Details Date Type Department Care Team (Late st Contact Info) Description 04/16/2023 Refill [facility] [address] [place], [place] [phone] Israel Quigley MD [address] [place], [place] [phone] Opioid dependence, uncomplicated (CMS/HCC) Social History Tobacco [...] Description 09/18/2024 9:00 AM EDT Office Visit [facility] [address] [place] [address] Israel Quigley MD [address] [place] [address] 10/30/2024 9:00 AM EDT Office Visit [facility] [address] [place] [address] Israel Quigley MD [address] [place] [address] documented as of this encounter Visit Diagnoses Diagnosis Opioid dependence, uncomplicated (CMS/HCC) documented in this encounter Additional Health Concerns Assessment Noted Time PHQ-9 Depression Total Score: 0 09/22/19 3:11 PM EDT documented as of this encounter Care Teams Senior Technical Program Manager Relationship Specialty Start Date End Date Bita Alvarez FNP [address] [place] [address] PCP - General Family Medicine 07/16/22 documented as of this encounter
--- OUTSIDE RECORDS SUMMARY | 2024-09-16 12:01 | XMS_ITS | Encounter Summary ---
Author Organization [employer] Address [address] [facility] 7t [place] [address] Care Team Providers Care Virtualization Architect Name Role Phone Bita Alvarez Primary Care Provider [phone] Reason for Visit * Reason Comments Med Refill Encounter Details Date Type Department Care Team (Late st Contact Info) Description 08/25/[address] [facility] [address] [place] [address] Bita Alvarez FNP [address] [place] [address] Social History Tobacco Use Types Packs/Day Years [...] 09/18/2024 9:00 AM EDT Office Visit [facility] [address] [place] [address] Israel Quigley MD [address] [place] [address] 10/30/2024 9:00 AM EDT Office Visit [facility] [address] [place] [address] Israel Quigley MD [address] [place] [address] documented as of this encounter Visit Diagnoses Not on filedocumented in this encounter Additional Health Concerns Assessment Noted Time PHQ-9 Depression Total Score: 2 01/02/20 24 8:17 PM EDT documented as of this encounter Care Teams Virtualization Architect Relationship Specialty Start Date End Date Bita Alvarez FNP [address] [place] [address] PCP - General Family Medicine 07/16/22 documented as of this encounter
--- OUTSIDE RECORDS SUMMARY | 2024-09-16 12:01 | XMS_ITS | Encounter Summary ---
Author Organization [employer] Address 75 [facility] 7t [place] [address] Care Team Providers Care Caretaker Grounds Name Role Phone Bita Alvarez Primary Care Provider [phone] Reason for Visit * Reason Comments Med Refill Encounter Details Date Type Department Care Team (Late st Contact Info) Description 04/16/2024 Refill [facility] [address] [place] [address] Bita Alvarez FNP [address] [place] [address] Social History Tobacco Use Types Packs/Day Years [...] Description 09/18/2024 9:00 AM EDT Office Visit [facility]INE [address] [place] [address] Israel Quigley MD [address] [place] [address] 10/30/2024 9:00 AM EDT Office Visit [facility] [address] [place] [address] Israel Quigley MD [address] [place] [phone] documented as of this encounter Visit Diagnoses Not on filedocumented in this encounter Additional Health Concerns Assessment Noted Time PHQ-9 Depression Total Score: 2 01/02/20 24 8:17 PM EDT documented as of this encounter Care Teams Caretaker Grounds Relationship Specialty Start Date End Date Bita Alvarez FNP [address] [place] [phone] PCP - General Family Medicine 07/16/22 documented as of this encounter
--- OUTSIDE RECORDS SUMMARY | 2024-09-16 12:01 | XMS_ITS | Encounter Summary ---
Author Organization [employer] Address [address] [facility] 7t [place] [address] Care Team Providers Care Drafter Geophysical Name Role Phone Bita Alvarez DIANA Primary Care Provider [phone] Encounter Details Date Type Department Care Team ([facility] st Contact Info) Description 03/22/[address] [facility] MEDICINE [address] [place], [place] [phone] Dominique Grande Social History Tobacco Use Types Packs/Day Years [...] Description 09/18/2024 9:00 AM EDT Office Visit [facility] MED[facility]INE [address] [place] [address] Israel Quigley MD [address] [place] [address] 10/30/2024 9:00 AM EDT Office Visit [facility] MEDICINE [address] [place] [address] Israel Quigley MD [address] [place], [place] [phone] documented as of this encounter Procedures Procedure Name Priority Date/Time Associated Diagnosis Comments COLONOSCOPY Routine 10/30/2016 documented in this encounter Results * Colonoscopy (10/30/2016) Colonoscopy Normal Normal Narrative Dominique Grande - 10/30/2016 Repeat in 10 years us Historical Provider HEALTH MAINTENANCE Final Result documented in this encounter Visit Diagnoses Not on filedocumented in this encounter Additional Health Concerns Assessment Noted Time PHQ-9 Depression Total Score: 0 09/22/19 23 3:11 PM EDT documented as of this encounter Care Teams Drafter Geophysical Relationship Specialty Start Date End Date Bita Alvarez FNP [address] [place] [phone] PCP - General Family Medicine 07/16/22 documented as of this encounter
--- OUTSIDE RECORDS SUMMARY | 2024-09-16 12:01 | XMS_ITS | Encounter Summary ---
Author Organization [employer] Address [address] [place] [address] 7t [place] [address] Care Team Providers Care Customer Acquisition Specialist Name Role Phone Bita Alvarez SALES REPRESENTATIVE [employer] Primary Care Provider [phone] Reason for Visit * Reason Comments Med Refill Encounter Details Date Type Department Care Team (Late st Contact Info) Description 01/22/2023 Refill [facility] MEDICINE [address] [place] [address] [phone] Israel Quigley MD [address] [place], [place] [phone] Opioid use disorder in remission Social History Tobacco Use Types Packs/Day Years Used Date Smoking Tobacco: Never Passive Smoke Exposure: Never Smokeless Tobacco: Never Alcohol Use Standard Drinks/Week Comments Never 0 (1 standard drink = 0.6 oz pur e alcohol) Depression Answer Date Recorded Patient Health Questionnaire-9 Score 0 09/21/2022 Depression Answer Date Recorded Patient Health Questionnaire-2 [...] Description 09/18/2024 9:00 AM EDT Office Visit [facility] [address] [place] [address] [phone] Israel Quigley MD [address] [place], [place] [phone] 10/30/2024 9:00 AM EDT Office Visit [facility] MED[facility]INE [address] [place] [address] Israel Quigley MD [address] [place] [address] documented as of this encounter Visit Diagnoses Diagnosis Opioid use disorder in remission documented in this encounter Additional Health Concerns Assessment Noted Time PHQ-9 Depression Total Score: 0 09/22/19 23 3:11 PM EDT documented as of this encounter Care Teams Customer Acquisition Specialist Relationship Specialty Start Date End Date Bita Alvarez FNP [address] [place] [address] PCP - General Family Medicine 07/16/22 documented as of this encounter
--- OUTSIDE RECORDS SUMMARY | 2024-09-16 12:01 | XMS_ITS | Encounter Summary ---
Author Organization [employer] Address [address] [place] [address] [address] [place] [address] Care Team Providers Care General Merchandise Salesperson Name Role Phone Bita Alvarez EPIDEMIOLOGIST Primary Care Provider [phone] Reason for Visit * Reason Comments Med Refill Encounter Details Date Type Department Care Team (Late st Contact Info) Description 11/26/2022 Refill [facility] MEDICINE [address] [place] [address] [phone] Israel Quigley MD [address] [place] [address] [phone] Opioid dependence, uncomplicated (CMS/HCC) Social History Tobacco [...] Description 09/18/2024 9:00 AM EDT Office Visit [facility] MED[facility] [address] [place] [phone] Israel Quigley MD [address] [place], [place] [phone] 10/30/2024 9:00 AM EDT Office Visit [facility] MEDICINE [address] [place], [place] [phone] Israel Quigley MD [address] [place], [place] [phone] documented as of this encounter Visit Diagnoses Diagnosis Opioid dependence, uncomplicated (CMS/HCC) documented in this encounter Additional Health Concerns Assessment Noted Time PHQ-9 Depression Total Score: 0 09/22/19 23 3:11 PM EDT documented as of this encounter Care Teams General Merchandise Salesperson Relationship Specialty Start Date End Date Bita Alvarez FNP [address] [place], [place] [phone] PCP - General Family Medicine 07/16/22 documented as of this encounter
--- OUTSIDE RECORDS SUMMARY | 2024-09-16 12:01 | XMS_ITS | Clinical Summary ---
Author Organization [employer] Address [address] [facility] 7t [place] [address] Care Team Providers Care Clinic Licensed Practical Nurse Name Role Phone Bita Alvarez DIANA Primary Care Provider [phone] Allergies No known active allergies Medications carbidopa-levodop a (Sinemet) 25-100 MG tablet Take 1 tablet by mouth 3 times daily. Active buprenorphine ER (Sublocade) 100 mg/0.5mL injectionIndicati ons:Opioid use disorder in remission Inject 0.5 mL (1 each) under the skin every month to absorb continually. 0.5 mL 5 024 Active selegiline (Eldepryl) 5 MG capsuleIndication s:Parkinson's disease, unspecified whether dyskinesia present, unspecified whether manifestations fluctuate (CMS/HCC) TAKE 1 CAPSULE BY MOUTH TWICE DAILY WITH BREAKFAST AND LUNCH Active ramelteon (Rozerem) 8 MG tabletIndications :Insomnia, unspecified type Take 1 tablet (8 mg) by mouth if needed at bedtime for sleep (Take 30 minutes before bed.). 30 tablet 1 024 2024 Active tiZANidine (Zanaflex) 2 MG tabletIndications :Muscle spasm Take 1-2 tablets (2-4 mg) by mouth every 8 (eight) hours if needed for muscle spasms. 30 tablet 024 2024 Active cyanocobalamin (Vitamin B-12) 1000 MCG tablet TAKE 1 TABLET(1000 MCG) BY MOUTH IN THE MORNING 90 tablet 3 Active senna (Senokot) 8.6 MG tabletIndications :Constipation due to opioid therapy TAKE 2 TABLETS BY MOUTH EVERY DAY NEEDED FOR CONSTIPATION 180 tablet 3 024 Active lisinopril-hydroC HLOROthiazide 20-25 MG tabletIndications :Primary hypertension Take 1 tablet by mouth Once per day. 90 tablet 3 024 Active buprenorphine ER (Sublocade) 100 mg/0.5mL injectionIndicati ons:Opioid dependence, uncomplicated (CMS/HCC) Inject 0.5 mL (1 each) under the skin every month to absorb continually. 0.5 mL 5 024 2024 Active pantoprazole (ProtoNix) 20 MG EC tabletIndications :Gastroesophageal reflux disease, unspecified whether esophagitis present TAKE 1 TABLET BY MOUTH TWICE DAILY. DO NOT BREAK, CRUSH, DISSOLVE OR CHEW. 180 tablet 1 025 Active rosuvastatin (Crestor) 20 MG tabletIndications :Hypertriglycerid emia TAKE 1 TABLET BY MOUTH AT BEDTIME (for cholesterol) 90 tablet 1 025 Active omega-3 (Fish Oil) 1000 MG capsule Take 1 capsule (1,000 mg) by mouth in the morning. 90 capsule 3 025 Active buprenorphine-nal oxone (Suboxone) 2-0.5 MG per sublingual filmIndications:O pioid dependence in remission ([facility]) Place 1 Film under the tongue Once per day for 7 days. Once daily as needed. 7 Film Active docusate sodium (Colace) 100 MG capsule TAKE 1 CAPSULE BY MOUTH EVERY DAY AT BEDTIME NEEDED FOR CONSTIPATION 90 capsule 3 Active senna (Senokot) 8.6 MG tablet Take 1-2 tablets (8.6-17.2 mg) by mouth if needed at bedtime for constipation. 180 tablet 3 025 2025 Active loratadine (Claritin) 10 MG tablet Take 1 tablet (10 mg) by mouth Once per day. 90 tablet 1 025 2024 Active docusate sodium (Colace) 100 MG capsule TAKE 1 CAPSULE BY MOUTH EVERY DAY AT BEDTIME NEEDED FOR CONSTIPATION 90 capsule 3 024 2024 Discontinued docusate sodium (Colace) 100 MG capsule TAKE 1 CAPSULE BY MOUTH EVERY DAY AT BEDTIME NEEDED FOR CONSTIPATION 90 capsule 3 025 2024 Discontinued(R eorder (will not trigger notification to Pharmacy)) Active Problems Problem Noted Date Diagnosed Date Hypertriglyceridemia 01/13/2024 Overview (01/28/2024): Lab Results Component Value Date TRIG 804 (H) 01/10/2024 TRIG 300 (H) 07/03/2023 Assessment & Plan (01/28/2024 9:58 PM EDT): -Continues omega-3 supplements -Initiated rosuvastatin 20mg nightly on 01/13/24 -Denies hx of pancreatitis -Advised avoid alcohol use, reduce intake of simple carbohydrates -Currently asymptomatic, reviewed ED precautions -Plan to re-check lipids Feb 2024 -Consider PA for icosapent ethyl Assessment & Plan (01/13/2024 6:47 PM EDT): -Initiated rosuvastatin 20mg nightly on 01/13/24 -Continue fish oil supplements Insomnia 01/02/2024 Assessment & Plan (01/28/2024 10:00 PM EDT): Continue with sleep hygiene interventions such as: Encouraged pt to use bed exclusively for sleep and sex. Set bed time and try to stay consistent each night with hour going to sleep and waking in morning. Avoid screens or electronics ideally for 2 hours before bed. If having trouble falling asleep, get up and journal or read before trying to re-initiate sleep. - Continue ramelteon 8mg nightly. Reviewed med safety and SE Assessment & Plan (01/02/2024 8:14 PM EDT): Continue with sleep hygiene interventions such as: Encouraged pt to use bed exclusively for sleep and sex. Set bed time and try to stay consistent each night with hour going to sleep and waking in morning. Avoid screens or electronics ideally for 2 hours before bed. If having trouble falling asleep, get up and journal or read before trying to re-initiate sleep. - Start ramelteon 8mg nightly. Reviewed med safety and SE Healthcare maintenance 02/06/2023 Overview (01/02/2024): Colonoscopy completed 10/30/16 through [facility]. Due for repeat in 10 years OPH: 12/27/23 [facility]. (+) cataracts. Last PE: 01/01/24 PSA: ordered 01/01/24 Assessment & Plan (02/07/2023 10:00 AM EDT): Flu and tetanus booster administered today in office Parkinson disease 09/23/2022 Overview (01/01/2024): Tremor of left hand and left lower extremity since approx 2018 tapping sensation of left foot. Tremor at rest, not noted during activity. Pt right hand dominant. Eval with [facility] - Dr. Calle September 2021. Plan for observation and follow up in [address] Schwab Dec 2022. Initiated on the following regimen through Neuro with noted improvement in tremor: Carbidopa-levodopa 25-100 mg QID Selegiline 5mg BID Assessment & Plan (01/02/2024 7:41 PM EDT): -Reports symptoms well controlled with current med regimen Assessment & Plan (02/07/2023 9:59 AM EDT): -Reports symptoms well controlled with current med regimen Assessment & Plan (09/23/2022 11:46 AM EDT): Reports Dr. Calle has since left practice Referral to establish with Neuro provider placed 09/23/22 Opioid use disorder 09/23/2022 Assessment & Plan (01/02/2024 7:39 PM EDT): Continue following with [facility] program Doing well on Sublocade injection Cont Colace and senna PRN for SE of constipation Assessment & Plan (09/23/2022 11:54 AM EDT): ?? Continue following with [facility] program ?? Continues on Suboxone 2-0.5mg TID, denies cravings ?? Cont Colace and senna PRN for SE of constipation Normocytic anemia 09/23/2022 Assessment & Plan (01/02/2024 7:42 PM EDT): Following with [facility]/Onc Dr. Camacho (reports last visit within past 12 months, stable). Assessment & Plan (09/23/2022 11:58 AM EDT): ?? Following with [facility]/Onc Dr. Camacho History of total right knee replacement 09/05/19 23 Overview (09/23/2022): ?? Right TKA 01/02/[address] Rodriguez - [facility] ?? Completed PT and rehab following surgery Assessment & Plan (09/23/2022 11:43 AM EDT): ?? Reports no longer with pain in right knee. Hypertension 05/23/2012 Overview (01/02/2024): Goal < 140/80 mmHg Well controlled Continue lisinopril-hydrochlorothiazide 20-25mg daily EKG NSR Dec 2021 Assessment & Plan (02/07/2023 9:56 AM EDT): Continue with lifestyle interventions such as low salt diet and physical activity Active order for repeat CMP Assessment & Plan (09/23/2022 11:57 AM EDT): Continue with lifestyle interventions such as low salt diet and physical activity Gastroesophageal reflux disease 05/23/2012 Assessment & Plan (01/02/2024 7:41 PM EDT): - Decreased effectiveness with dinner meal - Switch from omeprazole daily to pantoprazole BID. Reviewed med use and SE Diverticular disease 05/23/2012 Resolved Problems Problem Noted Date Diagnosed Date Resolved Date Polysubstance abuse 05/23/2012 06/26/19 24 Impaired glucose tolerance 05/23/2012 0 01/27/2024 Encounters Date Type Department Care Team Description 09/16/2024 9:45 AM EDT Office Visit [facility] [address] [place] [address] Bita Alvarez FNP Constipation due to opioid therapy; Long-term current use of opiate analgesic 09/16/2024 Travel 09/15/2024 Telephone [facility] [address] [facility] [place] [address] Bita Alvarez FNP Chart Prep 09/03/2024 Refill [facility] [address] [place] [address] Waleska Babcock RN 09/03/2024 Refill [facility] [address] [place] [address] Bita Alvarez FNP 08/25/2024 Refill [facility] [address] [place] [address] Bita Alvarez FNP 08/07/2024 9:15 AM EDT Office Visit [address] [address] Israel Quigley MD Opioid dependence in remission (CMS/HCC) (Primary Dx) 08/07/2024 Patient Outreach [facility] [address] [place] [address] Daniel Mercado Recovery Supports 08/07/2024 Patient Outreach [facility] [address] [place] [address] Sara Spencer Recovery Supports 08/07/2024 Travel 07/22/2024 Telephone [facility] [address] [place] [address] Bita Alvarez FNP July07/22/2024 Orders Only [facility] [address] [place] [address] Bita Alvarez FNP 07/21/2024 Refill [facility] [address] [place] [address] Bita Alvarez FNP 07/10/2024 9:15 AM EST Office Visit [facility] [address] [place] [address] Israel Quigley MD Opioid dependence in remission (CMS/HCC) (Primary Dx) 07/10/2024 Travel 07/06/2024 Refill [facility] [address] [place] [address] Bita Alvarez FNP Hypertriglyceridemia 07/03/2024 Refill [facility] [address] [place] [address] Renata Diaz RN 06/28/2024 Refill [facility] [address] [place], [place] [phone] Bita Alvarez FNP Gastroesophageal reflux disease, unspecified whether esophagitis present from Last 3 Months Immunizations Immunization Administration Dates Next Due Hep A, Adult 04/26/2003 Hep B, adult 07/02/2005,08/06/2000,03/19/2000 Influenza High-dose Quadriva lent Preservative Free 06/13/2023,02/06/2023,02/05/2022,2020 Influenza injectable quadriv alent IIV4 with preservative 03/26/2016,02/08/2015 Influenza injectable quadriv alent preservative free 05/02/2018 Influenza, IIV3, injectable 05/25/2014, 7,05/30/2005 Influenza, Split (incl. malachi fied surface antigen) 05/23/2012 Influenza, trivalent, adjuvanted 01/14/2024 Pneumococcal Conjugate PCV 13 12/02/2020 Pneumococcal Conjugate PCV 20 02/05/2022 TD (adult), 2 Lf tetanus tox oid, preservative free, adsorbed 02/06/2023,02/27/2000 Tdap 05/23/2012 Family History Medical History Relation Name Comments Stomach cancer Father Relation Name Status Comments Father Mother Alive Social History Tobacco Use Types Packs/Day Years Used Date Smoking Tobacco: Never Passive Smoke Exposure: Never Smokeless Tobacco: Never Tobacco Cessation:Counseling Given: Not Answered Alcohol Use Standard Drinks/Week Comments Never 0 [...] Orientation Straight 03/05/2022 10 :16 AM EDT Last Filed Vital Signs Vital Sign Reading [...] Mass Index 28.95 09/16/2024 9:54 AM EDT Plan of Treatment Upcoming Encounters Date Type Department Care Team (Late st Contact Info) Description 09/18/2024 9:00 AM EDT Office Visit [facility] [address] [place], [place] [phone] Israel Quigley MD [address] [place], [place] [phone] 10/30/2024 9:00 AM EDT Office Visit [facility] [address] [place] [address] Israel Quigley MD [address] [place], [place] [phone] Health Maintenance Due Date Last Done Comments CT Colonography 1954 FIT DNA/Cologuard 1954 FIT 1954 FOBT 1954 Sigmoidoscopy 1954 Zoster Vaccines (1 of 2) 2004 COVID-19 Vaccine ( season) 2024 01/14/2024, 06/13/2023, 03/21/2022, Additional history exists Alcohol/Substance Use Screening 12/31/2024 01/01/2024 Depression Screening 09/16/2025 09/16/2024, 09/17/19 25 SDOH Screening 09/16/2025 09/16/2024 Tobacco Screening 09/16/2025 09/16/2024 Colonoscopy 10/30/2026 10/30/2016 Colorectal Cancer Screening 10/30/2026 Lipid Panel 01/09/2029 01/10/2024, 06/07, 02/03/2021, Additional history exists RSV Patients and Patients Aged 60 years or older (1 - 1-dose 75+ series) 2029 DTaP/Tdap/Td Vaccines (3 - Td or Tdap) 02/06/2033 02/06/2023, 05/23/2012, 02/27/2000 Hepatitis A Vaccines Aged Out 04/26/2003 No long er eligible based on patient's age to complete this topic Hepatitis B Vaccines Completed 07/02/2005, 08/06/2000, 03/19/2000 Pneumococcal Vaccine: 50+ Years Completed 02/05/2022, 12/02/2020 Hepatitis C Screening Completed 03/26/2023, 022 Influenza Vaccine Completed 01/14/2024, , 02/06/2023, Additional history exists HIB Vaccines Aged Out No longer eligi ble based on patient's age to complete this topic HPV Vaccines Aged Out No longer eligi ble based on patient's age to complete this topic IPV Vaccines Aged Out No longer eligi ble based on patient's age to complete this topic Meningococcal B Vaccine Aged Out No l onger eligible based on patient's age to complete this topic Meningococcal Vaccine Aged Out No marry arthur eligible based on patient's age to complete this topic RSV under 20 months Aged Out No longe r eligible based on patient's age to complete this topic Rotavirus Vaccines Aged Out No longer eligible based on patient's age to complete this topic Procedures Procedure Name Priority Date/Time Associated Diagnosis Comments POCT TOMEKA-14 URINE DRUG SCREEN Routine 09/16/2024 10:39 AM EDT Long-term current use of opiate analgesic POCT TOMEKA-14 URINE DRUG SCREEN Routine 08/07/2024 9:12 AM EDT Opioid dependence in remission (CMS/HCC) POCT TOMEKA-14 URINE DRUG SCREEN Routine 07/10/2024 9:06 AM EST Opioid dependence in remission (CMS/HCC) LIPID PANEL, STANDARD Routine 01/10/2024 8:23 AM EDT Healthcare maintenance HEPATITIS C AB W/REFL TO HCV RNA, QN, PCR Routine 03/26/2023 9:55 AM EST Opioid dependence, uncomplicated (CMS/HCC) HM COLONOSCOPY Routine 10/30/2016 from Last 3 Months or Most Recently Relevant to Health Maintenance Results * POCT TOMEKA-14 Urine Drug Screen (09/16/2024 10:39 AM EDT) Only the most recent of3 resultswithin the time period is included. THC Negative Cocaine Screen, Urine Negative Opiate [...] Unknown 09/16/2024 10:39 AM EDT Narrative Twyla Salcido, [place] - 09/16/2024 10:39 AM EDT LOT: [id number] Exp: 03-05-2026 Bita Alvarez [facility] POINT OF CARE TEST ENTER/EDIT ORDERABLES Final Result * (ABNORMAL) Lipid Panel, Standard (01/10/2024 8:23 AM EDT) Triglycerides 804(H) <150 mg/dL [facility] Comment:Desirable Triglyceri de: less than 150 mg/dLBorderline High Triglyceride 150-199 mg/dLHigh Triglyceride: 200-499 mg/dLVery High Triglyceride: greater than or equal to 5OO mg/dL Cholesterol 177 <200 mg/dL [facility] Comment:Desirable Cholestero l: less than 200 mg/dLBorderline High Cholesterol: 200-239 mg/dLHigh Cholesterol: greater than 239 mg/dL LDL Cholesterol Calculated TNP <100 mg/dL [facility] Comment:Unable to calculate the LDL. The formula of Friedwald,Pina, and Elpidio is only valid if the triglycerides areless than 400 mg/dl. HDL Cholesterol 27(L) >40 mg/dL [facility] Comment:Desirable HDL: great er than 40 mg/dL Note: This HDL assay may give artificially low results in patients with liver disease. Blood Venous blood specimen / Unknown 01/10/2024 8:23 AM EDT 01/10/2024 11:21 AM EDT Bita Alvarez [facility] LAB BLOOD ORDERABLES Final Res ult Performing Organization Address [facility]/ZIP Co de Phone Number [facility] [address] [place] [address] [phone] * Hepatitis C Antibody with Reflex to HCV, RNA, Quantitative, Real-Time PCR (03/26/2023 9:55 AM EST) Hepatitis C Antibody Nonreactive Nonreactive [facility] Comment:Antibodies to HCV no t detected; does not exclude early acuteHCV infection. Blood Venous blood specimen / Unknown 03/26/2023 9:55 AM EST 03/26/2023 11:14 AM EST Israel Quigley MD LAB BLOOD ORDERABLES Final Res ult Performing Organization Address [facility] Co de Phone Number [facility] [address] [place] [address] [phone] * Colonoscopy (10/30/2016) Colonoscopy Normal Normal Narrative Dominique Grande - 10/30/2016 Repeat in 10 years Historical Provider HEALTH MAINTENANCE Final Result from Last 3 Months or Most Recently Relevant to Health Maintenance Insurance [facility] MEDICARE ADVANTAGE HMO Care Teams Clinic Licensed Practical Nurse Relationship Specialty Start Date End Date Bita Alvarez FNP [address] [place] [address] PCP - General Family Medicine 07/16/22
[2024-09-16 13:34] LABS: MANUAL DIFF FLAG NO
[2024-09-16 13:41] LABS: Prothrombin Time 11.2 SEC (10.9-12.4)
[2024-09-16 13:43] LABS: Basophils Percent Auto 0.7 % (0-2); Eosinophils Absolute Auto 0.1 X10*3/uL (0.0-0.4); Eosinophils Percent Auto 1.5 % (0-4); Hematocrit 34.3 % (42.0-52.0); Hemoglobin 11.5 g/dl (14.0-18.0); Imm Gran Abs Auto 0.19 X10*3/uL (0.00-0.03); Imm Gran Pct Auto 3.1 % (0.0-0.4); Lymphocytes Absolute Auto 1.2 X10*3/uL (1.2-4.9); Lymphocytes Percent Auto 19.9 % (20-40); Mean Corpuscular HGB Conc 33.5 g/dl (31.0-36.0); Mean Corpuscular Hemoglobin 29.3 pg (27.0-33.0); Mean Corpuscular Volume 87.5 fL (80.0-98.0); Mean Platelet Volume 9.4 fL (9.4-12.4); Monocytes Absolute Auto 0.6 X10*3/uL (0.1-1.2); Monocytes Percent Auto 9.3 % (2-11); NRBC Pct Auto 0.8 /100WBC (0.0-0.2); Neutrophils Percent Auto 65.5 % (45-73); Platelet Count 151 X10*3/uL (160-400); Red Blood Count 3.92 X10*6/uL (4.60-5.80); Red Cell Distribution Width 16.1 % (11.0-16.0); White Blood Count 6.1 X10*3/uL (4.8-10.8)
[2024-09-16 13:52] LABS: Alanine Aminotransferase 33 U/L (0-40); Albumin Level 4.8 g/dL (3.5-5.0); Alkaline Phosphatase 88 U/L (39-117); Aspartate Amino Transferase 34 U/L (5-37); Bilirubin Direct 0.2 mg/dL (0.0-0.5); Bilirubin Total 0.5 mg/dL (0.0-1.0); Cholesterol 102 mg/dL (<200); HDL Cholesterol 26 mg/dL (>40); LDL Cholesterol Calculated 30 mg/dL (<100); Triglycerides 230 mg/dL (<150)
== END 2024-09-16 10:59 | disposition home or self-care (01) ==
LOC: HO.HHCL 10:58
PROVIDERS: Visit Provider Registered Nurse
DX: D64.9 Anemia, unspecified (principal); E78.1 Pure hyperglyceridemia; Z79.01 Long term (current) use of anticoagulants
CPT/HCPCS: 36415; 80061; 80076; 85025; 85610

== ENCOUNTER 2024-12-14 11:44 | Outpatient (AMB) | payer MEDICARE, SELFPAY ==
--- OUTSIDE RECORDS SUMMARY | 2024-12-11 09:00 | XMS_ITS | Encounter Summary ---
Author Organization [employer] Address [address] [facility] [address] [place] [address] Care Team Providers Care Freezing Room Worker Name Role Phone Bita Alvarez DIANA Primary Care Provider [phone] Reason for Visit * Reason Comments OBAT Encounter Details Date Type Department Care Team ([facility] st Contact Info) Description 12/11/2024 9:00 AM EDT Office Visit [facility] [address], [place] [phone] Israel Quilgey MD [address] [place], [place] [phone] Opioid dependence in remission (CMS/HCC) (Primary Dx) Social History Tobacco Use Types Packs/Day Years [...] AM EDT documented as of this encounter Progress Notes * Waleska Babcock RN - 12/11/2024 9:00 AM EDT Sublocade reviewed. Pt verbalized understanding. Sublocade 100 mg given SQ rightupper abdomen. Pt tolerated injection, no adverse reactions noted. Advised pt to call RN with any questions or concerns. Cosigned by Israel Quigley MD at 12/11/2024 11:04 AM EDT documented in this encounter Plan of Treatment Upcoming Encounters Date Type Department Care Team (Late st Contact Info) Description 01/13/2025 9:45 AM EDT Office Visit [facility] MED[facility]INE [address] [place] [address] Bita Alvarez FNP [address] [place] [address] 01/20/2025 9:15 AM EDT Office Visit [facility] [address] [place] [address] Bita Alvarez FNP [address] [place] [address] 01/22/2025 9:15 AM EDT Office Visit [facility] [address] [place] [address] Israel Quigley MD [address] [place] [address] documented as of this encounter Visit Diagnoses Diagnosis Opioid dependence in remission (CMS/HCC)- Primary Opioid type dependence, in remission documented in this encounter Administered Medications Inactive Administered Medications - up to 3 most recent administrations Medication Order MAR Action Action Date Dose Rate Site buprenorphine ER (Sublocade) 100 mg/0.5mL injection 1 each 1 each, Subcutaneous, Over 1 month, First dose on Sat12/11/24 at 1015, For 1 dose, For abdominal subcutaneous injection only Remove Sublocade from the fridge at least 15 minutes prior to administration. Discard if left at room temperature for longer than 7 days. Do not open the foil pouch until patient arrives. See package insert for specific administration instructions. Do not administer intravenously or intramuscularly.Indication s:Opioid dependence in remission (CMS/HCC) Given 12/11/2024 10:15 AM EDT 1 each Right Upper Abdomen documented in this encounter Additional Health Concerns Assessment Noted Time PHQ-9 Depression Total Score: 4 09/17/19 25 10:03 AM EDT documented as of this encounter Care Teams Freezing Room Worker Relationship Specialty Start Date End Date Bita Alvarez FNP [address] [place] [id number] PCP - General Family Medicine 07/16/22 documented as of this encounter
--- NOTE | 2024-12-14 11:49 | A.OFFVIS_ITS ---
Intake Visit Reasons: Discuss medications Allergies No Known Allergies Allergy (Verified 12/14/24 11:50) Medication List - Last Reconciled 12/14/24 by Johanna Perez CNP buprenorphine ER (Sublocade) mg subcut carbidopa-levodopa 25-100 mg 1 tab PO TID cyanocobalamin (vitamin B-12) 1 tab PO DAILY lisinopril-hydrochlorothiazide 20-25 mg 1 tab PO DAILY omega-3 fatty acids-fish oil 340-1,000 mg (Fish Oil) 1 cap PO DAILY Held on 01/04/22. Instructions: Resume on 02/13/22. Hold for 6 weeks while taking full dose Aspirin to prevent bleeding. ramelteon 8 mg PO BEDTIME rosuvastatin 20 mg PO BEDTIME selegiline HCl 5 mg PO BID sennosides (Senna Lax) 17.2 mg PO DAILY walker Folding Front wheeled walker HPI Comments Details: He forgot to take carbidopa-levodopa when he went to [place] and was without medication for at least 3 weeks. He noticed difference without medication. He restarted medication 4x/day and was having some GI upset. Dose was reduced to 3x/day and GI side effects resolved. Tremors were stable. No significant tremor in left hand or leg. No functional impairment. No difficulty eating, drinking, or swallowing. No difficulty getting up from chair or turning in bed. No falls. Sleep was okay. Initially noticed tremor around 1211-9120 with tremor at rest, starting in the left leg and now in the left arm, sometimes in the right leg. It doesn't interfere with his function. He is right-handed. He was seen by a neurologist in [place] in 2021, but no medications were started. His symptoms have been getting worse gradually. History of heroin abuse in the past, clean since approx 2001, and was on Suboxone, now on sublocade. [facility] Medical History GERD (gastroesophageal reflux disease) HTN (hypertension) Normochromic normocytic anemia Surgical History History of right knee surgery History of surgery History of esophagogastroduodenoscopy (EGD) Hx of colonoscopy Family History Maternal Aunt Cancer Social History Household Members: Spouse Housing: House Are you a primary director of managed care to a significant other at home: No Do you presently have visiting nurse or other home services: No Alcohol intake: never Patient Tobacco Use Status: Never used Tobacco Substance Use Type: Former Substance User service: No Current occupational status: retired Current occupation: right handed/ landscaping Review of Systems Const Denies chills, Denies daytime sleepiness, Denies difficulty sleeping, Denies fatigue, Denies fever(s), Denies frequent falls, Denies headache(s), Denies increased appetite, Denies poor appetite, Denies snoring, Denies weakness, Denies weight gain and Denies weight loss Eyes Denies loss of vision ENT Denies vertigo, Denies dizziness, Denies headache(s) and Denies neck pain Card Denies chest pain at rest, Denies chest pain with activity, Denies syncope, Denies leg edema, Denies palpitations, Denies dyspnea and Denies dyspnea on exertion Resp Denies cough, Denies dyspnea, Denies dyspnea on exertion and Denies snoring GI Denies abdominal pain, Denies constipation, Denies heartburn, Denies diarrhea and Denies nausea Denies urinary frequency, Denies urinary incontinence and Denies urinary urgency Musc Denies abnormal gait, Denies back pain, Denies myalgias, Denies arthralgias, Denies neck pain, Denies numbness and Denies tingling Neuro Denies abnormal gait, Denies vertigo, Denies dizziness, Denies syncope, Denies frequent falls, Denies headache(s), Denies lack of coordination, Denies loss of vision, Denies memory loss, Denies numbness, Denies Other visual disturbances, Denies restless legs, Denies seizure-like activity, Denies tingling, Denies paresthesias, Reports tremor(s) and Denies weakness Psych Denies anxiety, Denies depression, Denies auditory hallucinations, Denies memory loss and Denies visual hallucinations Endo Denies fatigue and Denies palpitations Physical Exam Const Other: General Appearance:? normal, in no acute distress. Heart:? S1, S2 normal, no murmurs. Lungs:? clear anteriorly and posteriorly. Musculoskeletal:? normal. Extremities:? no edema. Psych:? alert, oriented, cognitive function intact, cooperative with exam. Neuro Other: Abnormal Neurological Findings:?Reduced blinking frequency and decreased facial expressions. Mild propulsion and retropulsion. Intermittent resting parkinsonian tremor of LUE, sometimes LLE and RLE intermittently for brief periods of time is less. Slight increase in tone to BUE, L > R. Posture and arm swing is okay. Mental Status: alert and oriented X 3. Normal attention, orientation, memory, and affect. Cranial Nerves: Pupils are equal, round, and reactive to light. External ocular muscles are intact. Visual mata are full, no ptosis. Face is symmetrical, no facial weakness or droop. Facial sensations are normal. Tongue protrudes in midline. Palate elevates symmetrically. Shoulder shrugging is normal Motor Examination: Normal muscle tone, bulk and strength. No atrophy or fasciculations. No drift of the extended upper extremities. DTR 2+. Plantars are flexor. Sensory Exam: Normal light touch, temperature, pinprick, vibration, and joint- position sensations. Rhomberg sign is absent. Gait Exam: Posture and arm swing is okay. Cerebellar Signs: [id number] is okay. Extrapyramidal System: As above. Speech: Normal. Assessment & Plan Assessment & Plan (1) Parkinsons disease: Code(s): G20.A1 - Parkinson's disease without dyskinesia, without mention of fluctuations Category: Medical Qualifiers: Dyskinesia presence: without dyskinesia Fluctuating manifestations: without fluctuating manifestations Qualified Code(s): G20.A1 - Parkinson's disease without dyskinesia, without mention of fluctuations Plan: Continue carbidopa-levodopa 25-100mg 1 tablet three times a day. Continue selegiline 5mg 1 tablet with breakfast and lunch. Medications: Changed From carbidopa-levodopa 25-100 mg 1 tab PO TID To carbidopa-levodopa 25-100 mg 1 tab PO TID 270 tabs 1RF 90 days From selegiline HCl 5 mg PO BID To selegiline HCl with breakfast and lunch 5 mg PO BID 180 caps 1RF 90 days Coding Level of Care Code Est Pt Level 4 (37655) Diagnoses Parkinson's disease without dyskinesia or fluctuating manifestations G20.A1 Dyskinesia presence: without dyskinesia Fluctuating manifestations: without fluctuating manifestations
--- OUTSIDE RECORDS SUMMARY | 2024-12-14 12:17 | XMS_ITS | Clinical Summary ---
Author Organization [facility] Facility Address [address] [address] Care Team Providers Care Bridge Gang Worker Name Role Phone Unavailable Primary Care Provider [...] of 1 - PCV) 2004 Influenza Vaccine (#1) 2025 Hepatitis B Vaccine Aged Out No longe r eligible based on patient's age to complete this topic
--- OUTSIDE RECORDS SUMMARY | 2024-12-14 12:17 | XMS_ITS | Patient Health Record ---
Author Organization [facility] Address [address] [place] [phone] Care Team Providers Care Office Chair Assembler Name Role Phone HerreraDeangelo Unavailable [phone] Reason For Referral No Information Plan Of Treatment No Information
== END 2024-12-14 12:15 | disposition home or self-care (01) ==
LOC: HO.HSM 11:45
PROVIDERS: PCP Internal Medicine; Visit Provider Registered Nurse
DX: G20.A1 Parkinson's disease without dyskinesia, without mention of fluctuations (principal)
CPT/HCPCS: 99214

== ENCOUNTER → 2024-12-14 11:44 | Outpatient (BNVA) | payer MEDICARE, SELFPAY | PROVIDERS: PCP Internal Medicine; Visit Provider Registered Nurse | DX: G20.A1 Parkinson's disease without dyskinesia, without mention of fluctuations (principal) | CPT/HCPCS: 99212 ==

== ENCOUNTER 2025-01-13 10:56 | Outpatient (REF) | payer MEDICARE, SELFPAY ==
--- NOTE | ~2025-01-13 | XR_ITS ---
EXAMINATION: XR KNEE, LEFT CLINICAL INFORMATION: 69 y/o M with chronic joint pains. COMPARISON: None available. TECHNIQUE: Three views of the left knee. FINDINGS: There is mild narrowing of the medial joint space. There is no soft tissue calcification. There are minute marginal osteophytes, tricompartmental. There is no joint effusion. XR/XR knee LT 3V IMPRESSION: Mild osteoarthritis. Electronically signed by: Juan Callahan MD 01/13/2025 02:00 PM EDT
--- NOTE | ~2025-01-13 | XR_ITS ---
EXAMINATION: XR ANKLE, right CLINICAL INFORMATION: 69 y/o M with chronic joint pains. COMPARISON: None available. TECHNIQUE: AP, lateral, and mortise views lower extremity joint, ankle. FINDINGS: Ankle mortise is congruent. There is no widening of the syndesmosis. Talar dome is intact. There are no calcaneal enthesophytes. Minimal degenerative irregularity is noted the inferior tip medial malleolus. XR/XR ankle RT min 3V IMPRESSION: Unremarkable ankle x-ray aside from mild chronic degenerative changes adjacent medial malleolus.. Electronically signed by: Juan Callahan MD 01/13/2025 01:59 PM EDT
--- OUTSIDE RECORDS SUMMARY | 2025-01-13 13:56 | XMS_ITS | Clinical Summary ---
Author Organization [facility] Facility Address [address] [address] Care Team Providers Care Corporate Job Titles Name Role Phone Unavailable Primary Care Provider [...]
--- OUTSIDE RECORDS SUMMARY | 2025-01-13 13:57 | XMS_ITS | Patient Health Record ---
Author Organization [facility] [employer] [facility] Address [address] [place] [phone] Care Team Providers Care Speech Therapist Technician Name Role Phone HerreraDeangelo Unavailable [phone] Reason For Referral No Information Plan Of Treatment No Information
== END 2025-01-13 10:57 | disposition home or self-care (01) ==
LOC: HO.HHCX 10:56
PROVIDERS: PCP Registered Nurse; Visit Provider Registered Nurse
DX: M25.562 Pain in left knee (principal); M25.571 Pain in right ankle and joints of right foot
CPT/HCPCS: 73562; 73610

== ENCOUNTER → 2025-01-13 11:11 | Outpatient (BNV) | payer MEDICARE, SELFPAY | PROVIDERS: PCP Registered Nurse; Visit Provider Radiology Diagnostic Radiology | DX: M25.562 Pain in left knee (principal); M25.571 Pain in right ankle and joints of right foot | CPT/HCPCS: 73562; 73610 ==

== ENCOUNTER 2025-01-20 10:40 | Outpatient (REF) | payer MEDICARE, SELFPAY ==
--- NOTE | ~2025-01-20 | XR_ITS ---
EXAMINATION: XR LUMBOSACRAL SPINE CLINICAL INFORMATION: 69 y/o chronic low back pain worsened with activity COMPARISON: None available. TECHNIQUE: AP and lateral views. FINDINGS: There is endplate sclerosis at multiple levels of the lumbar spine. Small marginal osteophyte formation at L2-3, L3-4 and L4-5 levels. No acute cortical disruption or gross malalignment. No lytic or blastic lesions. Calcified plaques likely aorta. XR/XR lumbar spine 2-3V IMPRESSION: Mild multilevel thoracolumbar spondylosis. Electronically signed by: Luther Guaman MD 01/20/2025 12:12 PM EDT
--- OUTSIDE RECORDS SUMMARY | 2025-01-20 09:15 | XMS_ITS | Encounter Summary ---
Author Organization [employer] Address [address] [place] [address] [address] [place] [address] Care Team Providers Care Travel Physical Therapist Name Role Phone Bita Alvarez Primary Care Provider [phone] Reason for Referral * Consultation (Routine) - Pending Review Specialty Diagnoses / Procedures Referred By Derrick marie Referred To Contact Occupational Therapy Diagnoses Left wrist pain Bita Alvarez FNP [address] [place], [place] Phone: tel: fax: Referral ID Status Reason Start Date Expiration Date Visits Requested Visits Authorized [id number] Pending Review Specialty Services Required 01/20/2025 01/20/2026 1 1 * Consultation (Routine) - Pending Review Specialty Diagnoses / Procedures Referred By Derrick marie Referred To Contact Physical Therapy Diagnoses Chronic bilateral low back pain without sciatica Bita Alvarez FNP [address] [place], [place] Phone: tel: fax: Referral ID Status Reason Start Date Expiration Date Visits Requested Visits Authorized [id number] Pending Review Specialty Services Required 01/20/2025 01/20/2026 1 1 Encounter Details Date Type Department Care Team (Latest Contact Info) Description 01/20/2025 9:15 AM EDT Office Visit [facility] MEDICINE [address] [place] [address] Bita Alvarez FNP [address] [place] [address] Primary hypertension (Primary Dx); Gastroesophageal reflux disease, unspecified whether esophagitis present; Healthcare maintenance; Normocytic anemia; History of total right knee replacement; Parkinson's disease, unspecified whether dyskinesia present, unspecified whether manifestations fluctuate (CMS/HCC); Primary insomnia; Chronic bilateral low back pain without sciatica; Left wrist pain; Impacted cerumen of both ears Social History Tobacco Use Types Packs/Day Years [...] Sign Reading Time Taken Comments Blood Pressure 152/78 01/20/2025 9:18 AM EDT forgot Meds today was on lewis to get to APPT Pulse 73 01/20/2025 9:18 AM EDT Temperature 36.2 C (97.1 F) 01/20/2025 9:18 AM EDT Respiratory Rate 18 01/20/2025 9:18 AM EDT Oxygen Saturation 95% 01/20/2025 9:1 8 AM EDT Inhaled Oxygen Concentration - - Weight 88.3 kg (194 lb 9.6 oz) 01/20/2025 9:18 AM EDT Height 172.7 cm (5' 8 ) 01/20/2025 9:18 AM EDT Body Mass Index 29.59 01/20/2025 9:18 AM EDT documented in this encounter Miscellaneous Notes * Assessment & Plan Note - DIANA Rivera - 01/20/2025 9:52 AM EDTAssociated Problem(s): Insomnia Continue with sleep hygiene interventions such as: Encouraged pt to use bed exclusively for sleep and sex. Set bed time and try to stay consistent each night with hour going to sleep and waking in morning. Avoid screens or electronics ideally for 2 hours before bed. If having trouble falling asleep, get up and journal or read before trying to re-initiate sleep. - Ramelteon RPRN, pain * Assessment & Plan Note - DIANA Rivera - 01/20/2025 9:43 AM EDTAssociated Problem(s): Hypertension 120s/80s documented in this encounter Plan of Treatment Upcoming Encounters Date Type Department Care Team (Late st Contact Info) Description 01/22/2025 9:15 AM EDT Office Visit [facility] MEDICINE [address] [place] [address] Israel Quigley MD [address] [place] [address] 03/05/2025 9:00 AM EDT Office Visit [address] [address] Israel Quigley MD [address] [place] [address] 04/21/2025 11:30 AM EST Office Visit [address] [address] Bita Alvarez, INSURANCE CHECKER [address] [place], [place] [id number] Scheduled Orders Name Type Priority Associated Diagnoses Orde r Schedule CBC auto differential Lab Routine Healthcare maintenance Expected: 01/20/2025 (Approximate), Expires: 01/20/2026 Pathologist Review Of Peripheral Smear Lab Routine Healthcare maintenance Expected: 01/20/2025 (Approximate), Expires: 01/20/2026 Vitamin D, 25-Hydroxy, Total, Immunoassay Lab Routine Healthcare maintenance Expected: 01/20/2025 (Approximate), Expires: 01/20/2026 Vitamin B12/Folate, Serum Panel Lab Routine Healthcare maintenance Expected: 01/20/2025, Expires: 01/20/2026 Basic Metabolic Panel Lab Routine Healthcare maintenance Expected: 01/20/2025 (Approximate), Expires: 01/20/2026 Hemoglobin A1c Lab Routine Healthcare maintenance Expected: 01/20/2025 (Approximate), Expires: 01/20/2026 Hepatitis C Viral RNA, Quantitative, Real-Time PCR Lab Routine Healthcare maintenance Expected: 01/20/2025 (Approximate), Expires: 01/20/2026 RPR (Monitor) with Reflex to Titer Lab Routine Healthcare maintenance Expected: 01/20/2025 (Approximate), Expires: 01/20/2026 HIV-1/2 Antigen and Antibodies, Fourth Generation, with Reflexes Lab Routine Healthcare maintenance Expected: 01/20/2025 (Approximate), Expires: 01/20/2026 Chlamydia/N. Gonorrhoeae, PCR, Urine Lab Routine Healthcare maintenance Expected: 01/20/2025 (Approximate), Expires: 01/20/2026 Ear Cerumen Removal Procedures Routine Impacted cerumen of both ears Ordered: 01/20/2025 Scheduled Referrals Name Type Priority Associated Diagnoses Order Schedule Referral to Physical Therapy Outpatient Referral Routine Chronic bilateral low back pain without sciatica Expected: 01/20/2025 (Approximate), Expires: 01/20/2026 Referral to Occupational Therapy Outpatient Referral Routine Left wrist pain Expected: 01/20/2025 (Approximate), Expires: 01/20/2026 documented as of this encounter Procedures Procedure Name Priority Date/Time Associated Diagnosis Comments XR LUMBAR SPINE 2-3 VIEWS Routine 01/20/2025 12:05 PM EDT Chronic bilateral low back pain without sciatica documented in this encounter Results * XR Lumbar Spine 2-3 Views (01/20/2025 12:05 PM EDT) Anatomical Region Laterality Modality Spine, L-spine Radiographic Feli ging 01/20/2025 12:0 5 PM EDT Narrative 01/20/2025 12:15 [place] [address] XRay Report Signed Patient: Stuart Rivers MR#: [id number] 6 : 1955 Acct:[id number] Age/Sex: 69 / M ADM Date: 01/20/25 Loc: HO.HHCX Attending Dr: Bita ORTIZ Ordering Physician: Bita Alvarez Date of Service: 01/20/25 Procedure(s): XR lumbar spine 2-3V Accession Number(s): [id number] cc: Bita Alvarez Reason for Exam: 69 y/o chronic low back pain worsened with activity EXAMINATION: XR LUMBOSACRAL SPINE CLINICAL INFORMATION: 69 y/o chronic low back pain worsened with activity COMPARISON: None available. TECHNIQUE: AP and lateral views. FINDINGS: There is endplate sclerosis at multiple levels of the lumbar spine. Small marginal osteophyte formation at L2-3, L3-4 and L4-5 levels. No acute cortical disruption or gross malalignment. No lytic or blastic lesions. Calcified plaques likely aorta. XR/XR lumbar spine 2-3V IMPRESSION: Mild multilevel thoracolumbar spondylosis. Electronically signed by: Luther Guaman MD 01/20/2025 12:12 PM EDT RP Dictated By: Luther Trujillo MD Signed By: <Electronically signed by Luther Del Real MD in OV> 01/20/25 1212 DD/ 1205 TD/TT: 01/20/25 1206 Oncology Navigator: Procedure Note Donotuseinterpreter, Image - 01/20/2025 [place] [address] XRay Report Signed Patient: Stuart Rivers AMR#: [id number] 6 : 1955cct:[id number] Age/Sex: 69 / MADM Date: 01/20/25 Loc: HO.HHCX Attending Dr: Bita ORTIZ Ordering Physician: Bita Alvarez Date of Service: 01/20/25 Procedure(s): XR lumbar spine 2-3V Accession Number(s): [id number] cc: Bita Alvarez Reason for Exam: 69 y/o chronic low back pain worsened with activity EXAMINATION: XR LUMBOSACRAL SPINE CLINICAL INFORMATION: 69 y/o chronic low back pain worsened with activity COMPARISON: None available. TECHNIQUE: AP and lateral views. FINDINGS: There is endplate sclerosis at multiple levels of the lumbar spine. Small marginal osteophyte formation at L2-3, L3-4 and L4-5 levels. No acute cortical disruption or gross malalignment. No lytic or blastic lesions. Calcified plaques likely aorta. XR/XR lumbar spine 2-3V IMPRESSION: Mild multilevel thoracolumbar spondylosis. Electronically signed by: Luther Guaman MD 01/20/2025 12:12 PM EDT RP Dictated By: Luther Trujillo MD Signed By: <Electronically signed by Luther Del Real MDin OV> 01/20/25 1212 DD/ 1205 TD/TT: 01/20/25 1206 Oncology Navigator: Bita ORTIZ IMG XR PROCEDURES Edited Resul t - Final documented in this encounter Visit Diagnoses Diagnosis Primary hypertension- Primary Unspecified essential hypertension Gastroesophageal reflux disease, unspecified whether esophagitis present Healthcare maintenance Normocytic anemia Unspecified anemia History of total right knee replacement Parkinson's disease, unspecified whether dyskinesia present, unspecified whether manifestations fluctuate (CMS/HCC) Primary insomnia Persistent disorder of initiating or maintaining sleep Chronic bilateral low back pain without sciatica Left wrist pain Pain in joint, forearm Impacted cerumen of both ears Impacted cerumen documented in this encounter Additional Health Concerns Assessment Noted Time PHQ-9 Depression Total Score: 4 09/17/19 25 10:03 AM EDT documented as of this encounter Care Teams Travel Physical Therapist Relationship Specialty Start Date End Date Bita Alvarez FNP [address] [place] [address] PCP - General Family Medicine 07/16/22 documented as of this encounter
--- OUTSIDE RECORDS SUMMARY | 2025-01-20 13:13 | XMS_ITS | Encounter Summary ---
Author Organization [employer] Address [address] [facility] [address] [place] [address] Care Team Providers Care Prototype Engineer Manager Name Role Phone Bita Alvarez Primary Care Provider [phone] Reason for Visit * Reason Onset Date Comments CHART PREP 01/19/2025 Encounter Details Date Type Department Care Team ([facility] st Contact Info) Description 01/19/2025 Telephone [facility] MEDICINE [address] [place] [address] Bita Alvarez FNP [address] [place] [address] CHART PREP Social History Tobacco Use Types Packs/Day Years [...] encounter Miscellaneous Notes * Telephone Encounter - Yamile Osullivan [place] - 01/19/2025 4:14 PM EDT Chart Prep Labs: not done from 09/17/24 Images: done ankle x-ray, Bone dexa pending [facility] [place]. Referrals: not applicable Vaccines due: Covid, Flu, and Zoster Screenings: not applicable Overdue care gaps: Not applicable documented in this encounter Plan of Treatment Upcoming Encounters Date Type Department Care Team (Late st Contact Info) Description 01/22/2025 9:15 AM EDT Office Visit [facility] MEDICINE [address] [place] [address] Israel Quigley MD [address] [place] [address] 03/05/2025 9:00 AM EDT Office Visit [facility] MED[facility]INE [address] [place] [address] Israel Quigley MD [address] [place] [address] 04/21/2025 11:30 AM EST Office Visit [facility] MED[facility]INE [address] [place] [address] Bita Alvarez FNP [address] [place] [address] documented as of this encounter Visit Diagnoses Not on filedocumented in this encounter Additional Health Concerns Assessment Noted Time PHQ-9 Depression Total Score: 4 09/17/19 25 10:03 AM EDT documented as of this encounter Care Teams Prototype Engineer Manager Relationship Specialty Start Date End Date Bita Alvarez FNP [address] [place] [address] PCP - General Family Medicine 07/16/22 documented as of this encounter
--- OUTSIDE RECORDS SUMMARY | 2025-01-20 13:13 | XMS_ITS | Patient Health Record ---
Author Organization [facility] Address [address] [place] [phone] Care Team Providers Care Roundhouse Worker Name Role Phone HerreraDeangelo Unavailable [phone] Reason For Referral No Information Plan Of Treatment No Information
--- OUTSIDE RECORDS SUMMARY | 2025-01-20 13:14 | XMS_ITS | Encounter Summary ---
Author Organization [employer] Address [address] [facility] 7t [place] [address] Care Team Providers Care Hand Chain Maker Name Role Phone Bita Alvarez Primary Care Provider [phone] Reason for Visit * Reason Comments Med Refill Encounter Details Date Type Department Care Team (Late st Contact Info) Description 08/25/2024 Refill [facility] [address] [place] [address] Bita Alvarez FNP [address] [place], [place] [phone] Social History Tobacco Use Types Packs/Day Years [...] Description 01/22/2025 9:15 AM EDT Office Visit [facility] [address] [place] [phone] Israel Quigley MD [address] [place] [phone] 03/05/2025 9:00 AM EDT Office Visit [address] [address] Israel Quigley MD [address] [place] [address] 04/21/2025 11:30 AM EST Office Visit [address] [address] Bita Alvarez FNP [address] [place] [address] documented as of this encounter Visit Diagnoses Not on filedocumented in this encounter Additional Health Concerns Assessment Noted Time PHQ-9 Depression Total Score: 2 01/02/20 24 8:17 PM EDT documented as of this encounter Care Teams Hand Chain Maker Relationship Specialty Start Date End Date Bita Alvarez FNP [address] [place] [address] PCP - General Family Medicine 07/16/22 documented as of this encounter
--- OUTSIDE RECORDS SUMMARY | 2025-01-20 13:14 | XMS_ITS | Encounter Summary ---
Author Organization [employer] Address [address] [place] [address] 7[address] [place] [address] Care Team Providers Care Supervisor Money Room Name Role Phone Bita Alvarez SHINGLE CARRIER Primary Care Provider [phone] Reason for Visit * Reason Comments Med Refill Encounter Details Date Type Department Care Team (Late st Contact Info) Description 11/26/2022 Refill [facility] [address] [place] [address] [phone] Israel Quigley MD [address] [place], [place] [phone] Opioid dependence, uncomplicated (CMS/HCC) Social History Tobacco [...] Description 01/22/2025 9:15 AM EDT Office Visit [facility] [address] [place] [address] [phone] Israel Quigley MD [address] [place], [place] [phone] 03/05/2025 9:00 AM EDT Office Visit [facility] [address] [place] [phone] Israel Quigley MD [address] [place] [address] 04/21/2025 11:30 AM EST Office Visit [address] [address] Bita Alvarez FNP [address] [place] [address] documented as of this encounter Visit Diagnoses Diagnosis Opioid dependence, uncomplicated (CMS/HCC) documented in this encounter Additional Health Concerns Assessment Noted Time PHQ-9 Depression Total Score: 0 09/22/19 23 3:11 PM EDT documented as of this encounter Care Teams Supervisor Money Room Relationship Specialty Start Date End Date Bita Alvarez FNP [address] [place] [phone] PCP - General Family Medicine 07/16/22 documented as of this encounter
--- OUTSIDE RECORDS SUMMARY | 2025-01-20 13:14 | XMS_ITS | Encounter Summary ---
Author Organization [employer] Address [address] [facility] 7t [place] [address] Care Team Providers Care Electron Beam Machine Welder Setter Name Role Phone Bita Alvarez DIANA Primary Care Provider [phone] Encounter Details Date Type Department Care Team (Latest Contact Info) Description 01/20/2025 Travel Social History Tobacco Use Types Packs/Day [...] Description 01/22/2025 9:15 AM EDT Office Visit [facility] [address] [place] [address] Israel Quigley MD [address] [place] [address] 03/05/2025 9:00 AM EDT Office Visit [address] [address] Israel Quigley MD [address] [place] [address] 04/21/2025 11:30 AM EST Office Visit [address] [address] Bita Alvarez FNP [address] [place] [address] documented as of this encounter Visit Diagnoses Not on filedocumented in this encounter Additional Health Concerns Assessment Noted Time PHQ-9 Depression Total Score: 4 09/17/19 25 10:03 AM EDT documented as of this encounter Care Teams Electron Beam Machine Welder Setter Relationship Specialty Start Date End Date Bita Alvarez FNP [address] [place] [phone] PCP - General Family Medicine 07/16/22 documented as of this encounter
--- OUTSIDE RECORDS SUMMARY | 2025-01-20 13:14 | XMS_ITS | Encounter Summary ---
Author Organization [employer] Address [address] [facility] 7t [place] [address] Care Team Providers Care Shovel Mechanic Name Role Phone Bita Alvarez DIANA Primary Care Provider [phone] Reason for Visit * Reason Comments Med Refill Encounter Details Date Type Department Care Team (Late st Contact Info) Description 10/29/[address] [facility] MED[facility]INE [address] [place], [place] [phone] Israel Quigley MD [address] [place], [place] [phone] Opioid dependence, uncomplicated (CMS/HCC) Social History Tobacco Use Types Packs/Day Years Used Date Smoking Tobacco: Never Passive Smoke Exposure: Never Smokeless Tobacco: Never Alcohol Use Standard Drinks/Week Comments Never 0 (1 standard drink = 0.6 oz pur e alcohol) Depression Answer Date Recorded Patient Health Questionnaire-9 Score 0 09/21/2022 Housing Stability Answer Date Recorded What is your housing situation today? I have catrahcito jay 10/16/[address] you [...] AM EDT Office Visit [facility] [address] [place] [address] Israel Quigley MD [address] [place] [address] 03/05/2025 9:00 AM EDT Office Visit [address] [address] Israel Quigley MD [address] [place] [address] 04/21/2025 11:30 AM EST Office Visit [address] [address] Bita Alvarez FNP [address] [place] [address] documented as of this encounter Visit Diagnoses Diagnosis Opioid dependence, uncomplicated (CMS/HCC) documented in this encounter Additional Health Concerns Assessment Noted Time PHQ-9 Depression Total Score: 0 09/22/19 3:11 PM EDT documented as of this encounter Care Teams Shovel Mechanic Relationship Specialty Start Date End Date Bita Alvarez FNP [address] [place] [phone] PCP - General Family Medicine 07/16/22 documented as of this encounter
--- OUTSIDE RECORDS SUMMARY | 2025-01-20 13:14 | XMS_ITS | Encounter Summary ---
Author Organization [employer] Address [address] [place] [address] 7[address] [place] [address] Care Team Providers Care Pilot Boat Deckhand Name Role Phone Bita Alvarez BUTTON RECLAIMER Primary Care Provider [phone] Reason for Visit * Reason Comments Med Refill Encounter Details Date Type Department Care Team (Late st Contact Info) Description 01/22/2023 Refill [facility] [address] [place] [address] [phone] Israel Quigley MD [address] [place], [place] [phone] Opioid use disorder in remission Social History [...] Description 01/22/2025 9:15 AM EDT Office Visit [facility] [address] [place] [address] [phone] Israel Quigley MD [address] [place], [place] [phone] 03/05/2025 9:00 AM EDT Office Visit [address] [address] Israel Quigley MD [address] [place] [address] 04/21/2025 11:30 AM EST Office Visit [address] [address] Bita Alvarez FNP [address] [place] [address] documented as of this encounter Visit Diagnoses Diagnosis Opioid use disorder in remission documented in this encounter Additional Health Concerns Assessment Noted Time PHQ-9 Depression Total Score: 0 09/22/19 23 3:11 PM EDT documented as of this encounter Care Teams Pilot Boat Deckhand Relationship Specialty Start Date End Date Bita Alvarez FNP [address] [place] [phone] PCP - General Family Medicine 07/16/22 documented as of this encounter
--- OUTSIDE RECORDS SUMMARY | 2025-01-20 13:14 | XMS_ITS | Clinical Summary ---
Author Organization [facility] Address [address] [address] Care Team Providers Care Special Agent Fbi Name Role Phone Unavailable Primary Care Provider [...]
--- OUTSIDE RECORDS SUMMARY | 2025-01-20 13:14 | XMS_ITS | Clinical Summary ---
Author Organization [employer] Address [address] [facility] [address] [place] [address] Care Team Providers Care Oil Pipeline Operator Name Role Phone Bita Alvarez DIANA Primary Care Provider [phone] Allergies No known active allergies Medications carbidopa-levodo pa (Sinemet) 25-100 MG tablet Take 1 tablet by mouth 3 times daily. 023 Active selegiline (Eldepryl) 5 MG capsuleIndicatio ns:Parkinson's disease, unspecified whether dyskinesia present, unspecified whether manifestations fluctuate (CMS/HCC) TAKE 1 CAPSULE BY MOUTH TWICE DAILY WITH BREAKFAST AND LUNCH 024 Active ramelteon (Rozerem) 8 MG tabletIndication s:Insomnia, unspecified type Take 1 tablet (8 mg) by mouth if needed at bedtime for sleep (Take 30 minutes before bed.). 30 tablet 1 024 Active tiZANidine (Zanaflex) 2 MG tabletIndication s:Muscle spasm Take 1-2 tablets (2-4 mg) by mouth every 8 (eight) hours if needed for muscle spasms. 30 tablet 024 Active senna (Senokot) 8.6 MG tabletIndication s:Constipation due to opioid therapy TAKE 2 TABLETS BY MOUTH EVERY DAY NEEDED FOR CONSTIPATION 180 tablet 3 024 Active docusate sodium (Colace) 100 MG capsuleIndicatio ns:Constipation due to opioid therapy TAKE 1 CAPSULE BY MOUTH EVERY DAY AT BEDTIME NEEDED FOR CONSTIPATION 90 capsule 3 025 Active senna (Senokot) 8.6 MG tabletIndication s:Constipation due to opioid therapy Take 1-2 tablets (8.6-17.2 mg) by mouth if needed at bedtime for constipation. 180 tablet 3 025 2025 Active loratadine (Claritin) 10 MG tabletIndication s:Throat irritation Take 1 tablet (10 mg) by mouth Once per day. 90 tablet 1 025 Active Sublocade 100 MG/0.5ML injectionIndicat ions:Opioid dependence, uncomplicated (CMS/HCC) INJECT 0.5 ML SUBCUTANEOUSLY EVERY MONTH TO ABSORB CONTINUALLY 0.5 mL 5 025 Active pantoprazole (ProtoNix) 20 MG EC tabletIndication s:Gastroesophage al reflux disease, unspecified whether esophagitis present TAKE 1 TABLET BY MOUTH TWICE DAILY DO NOT BREAK, CRUSH, DISSOLVE OR CHEW 180 tablet 1 025 Active rosuvastatin (Crestor) 20 MG tabletIndication s:Hypertriglycer idemia TAKE 1 TABLET BY MOUTH AT BEDTIME (for cholesterol) 90 tablet 1 025 Active Magnesium 400 MG capsule Take 400 mg by mouth at bedtime. 90 capsule 1 025 Active lisinopril-hydro CHLOROthiazide 20-25 MG tabletIndication s:Primary hypertension Take 1 tablet by mouth Once per day. 90 tablet 3 025 Active cyanocobalamin (Vitamin B-12) 1000 MCG tablet TAKE 1 TABLET(1000 MCG) BY MOUTH IN THE MORNING 90 tablet 3 025 Active omega-3 (Fish Oil) 1000 MG capsule Take 1 capsule (1,000 mg) by mouth in the morning. 90 capsule 3 025 Active cyanocobalamin (Vitamin B-12) 1000 MCG tablet TAKE 1 TABLET(1000 MCG) BY MOUTH IN THE MORNING 90 tablet 3 024 2024 Discontinued(R eorder (will not trigger notification to Pharmacy)) lisinopril-hydro CHLOROthiazide 20-25 MG tabletIndication s:Primary hypertension Take 1 tablet by mouth Once per day. 90 tablet 3 024 2024 Discontinued(R eorder (will not trigger notification to Pharmacy)) pantoprazole (ProtoNix) 20 MG EC tabletIndication s:Gastroesophage al reflux disease, unspecified whether esophagitis present TAKE 1 TABLET BY MOUTH TWICE DAILY. DO NOT BREAK, CRUSH, DISSOLVE OR CHEW. 180 tablet 1 025 2024 Discontinued rosuvastatin (Crestor) 20 MG tabletIndication s:Hypertriglycer idemia TAKE 1 TABLET BY MOUTH AT BEDTIME (for cholesterol) 90 tablet 1 025 2024 Discontinued omega-3 (Fish Oil) 1000 MG capsule Take 1 capsule (1,000 mg) by mouth in the morning. 90 capsule 3 025 2024 Discontinued(R eorder (will not trigger notification to Pharmacy)) Active Problems Problem Noted Date Diagnosed Date Hypertriglyceridemia 01/13/2024 Overview (01/12/2025): Lab Results Component Value Date TRIG 230 (H) 09/16/2024 TRIG 804 (H) 01/10/2024 TRIG 300 (H) 07/03/2023 Assessment & Plan (01/12/2025 9:25 PM EDT): -Continues omega-3 supplements -Initiated rosuvastatin 20mg nightly on 01/13/24 -Denies hx of pancreatitis -Advised avoid alcohol use, reduce intake of simple carbohydrates -Currently asymptomatic, reviewed ED precautions -Consider PA for icosapent ethyl Assessment & Plan (01/28/2024 9:58 PM EDT): [...] oil supplements Insomnia 01/02/2024 Assessment & Plan (01/20/2025 9:52 AM EDT): Continue with sleep hygiene interventions such [...] to re-initiate sleep. - Ramelteon RPRN, pain Assessment & Plan (01/28/2024 10:00 PM EDT): [...] 02/06/2023 Overview (01/02/2024): Colonoscopy completed 10/30/16 through [facility]. Due for repeat in 10 years OPH: 12/27/23 [facility]. (+) cataracts. Last PE: 01/01/24 PSA: ordered 01/01/24 Assessment & Plan (02/07/2023 10:00 AM EDT): Flu and tetanus booster administered today in office Parkinson disease 09/23/2022 Overview (01/01/2024): Tremor of left hand and left lower extremity since approx 2018 tapping sensation of left foot. Tremor at rest, not noted during activity. Pt right hand dominant. Eval with [facility] - Dr. Calle September 2021. Plan for observation and follow up in [address] Schwab Dec 2022. Initiated on the following regimen through Neuro with noted improvement in tremor: Carbidopa-levodopa 25-100 mg QID Selegiline 5mg BID Assessment & Plan (01/12/2025 9:26 PM EDT): -Reports symptoms well controlled with current med regimen Assessment & Plan (01/02/2024 7:41 PM EDT): -Reports symptoms well controlled with current med regimen Assessment & Plan (02/07/2023 9:59 AM EDT): -Reports symptoms well controlled with current med regimen Assessment & Plan (09/23/2022 11:46 AM EDT): Reports Dr. Calle has since left practice Referral to establish with Neuro provider placed 09/23/22 Opioid use disorder 09/23/2022 Assessment & Plan (01/12/2025 9:26 PM EDT): Continue following with [facility] program Doing well on Sublocade injection Cont Colace and senna PRN for SE of constipation Assessment & Plan (09/16/2024 3:17 PM EDT): Continue following with [facility] program Doing well on Sublocade injection Cont Colace and senna PRN for SE of constipation Requesting to test utox today, completed. Assessment & Plan (01/02/2024 7:39 PM EDT): Continue following with [facility] program Doing well on Sublocade injection Cont Colace and senna PRN for SE of constipation Assessment & Plan (09/23/2022 11:54 AM EDT): Continue following with [facility] program Continues on Suboxone 2-0.5mg TID, denies cravings Cont Colace and senna PRN for SE of constipation Normocytic anemia 09/23/2022 Assessment & Plan (01/12/2025 9:26 PM EDT): Following with [facility] Heme/Onc Dr. Camacho (reports last visit within past 12 months, stable). Assessment & Plan (01/02/2024 7:42 PM EDT): Following with [facility] Heme/Onc Dr. Camacho (reports last visit within past 12 months, stable). Assessment & Plan (09/23/2022 11:58 AM EDT): Following with [facility] Heme/Onc Dr. Camacho History of total right knee replacement 09/05/19 23 Overview (09/23/2022): Right TKA 01/02/[address] Rodriguez - [facility] Completed PT and rehab following surgery Assessment & Plan (09/23/2022 11:43 AM EDT): Reports no longer with pain in right knee. Hypertension 05/23/2012 Overview (01/02/2024): Goal < 140/80 mmHg Well controlled Continue lisinopril-hydrochlorothiazide 20-25mg daily EKG NSR Dec 2021 Assessment & Plan (01/20/2025 9:43 AM EDT): 120s/80s Assessment & Plan (02/07/2023 9:56 AM EDT): [...] Encounters Date Type Department Care Team Description 01/20/2025 9:15 AM EDT Office Visit [facility] [address] [place] [phone] Bita Alvarez FNP Primary hypertension (Primary Dx); Gastroesophageal reflux disease, unspecified whether esophagitis present; Healthcare maintenance; Normocytic anemia; History of total right knee replacement; Parkinson's disease, unspecified whether dyskinesia present, unspecified whether manifestations fluctuate (CMS/HCC); Primary insomnia; Chronic bilateral low back pain without sciatica; Left wrist pain; Impacted cerumen of both ears 01/20/2025 Travel 01/19/2025 Telephone [facility] [address] [place] [address] Bita Alvarez FNP CHART PREP 01/13/2025 9:45 AM EDT Office Visit [address] [address] Bita Alvarez FNP Hypertriglyceridemia (Primary Dx); Primary hypertension; Healthcare maintenance; Normocytic anemia; Opioid use disorder; Parkinson's disease, unspecified whether dyskinesia present, unspecified whether manifestations fluctuate (CMS/HCC); Encounter for screening for osteoporosis; Dietary counseling; Exercise counseling; Polyarthralgia; Arthralgia, unspecified joint 01/13/2025 Travel 01/12/2025 Telephone [facility] [address] [place] [address] Bita Alvarez FNP CHART PREP 01/04/2025 Refill [facility] [address] [place] [address] Bita Alvarez FNP Gastroesophageal reflux disease, unspecified whether esophagitis present; Hypertriglyceridemia 12/11/2024 9:00 AM EDT Office Visit [facility] [address] [place] [address] Israel Quigley MD Opioid dependence in remission (CMS/HCC) (Primary Dx) 12/11/2024 Travel 11/13/2024 Refill [facility] [address] [place] [address] Pj Gordillo MD Opioid dependence, uncomplicated (CMS/HCC) 10/30/2024 9:00 AM EDT Office Visit [address] [address] Israel Quigley MD Opioid dependence in remission (CMS/HCC) (Primary Dx) 10/30/2024 Travel from Last 3 Months Immunizations Immunization Administration [...] History Relation Name Comments Stomach cancer Father Diabetes Maternal Grandmother Diabetes Other Family history Relation Name Status Comments Father Maternal Grandmother Mother Alive Other Family history Social History Tobacco Use Types Packs/Day Years [...] Mass Index 29.59 01/20/2025 9:18 AM EDT Plan of Treatment Upcoming Encounters Date Type Department Care Team (Late st Contact Info) Description 01/22/2025 9:15 AM EDT Office Visit [address] [address] Israel Quigley MD [address] [place] [address] 03/05/2025 9:00 AM EDT Office Visit [address] [address] Israel Quigley MD [address] [place] [address] 04/21/2025 11:30 AM EST Office Visit [address] [address] Bita Alvarez, COUNSELOR MANAGER [address] [place] [address] Health Maintenance Due Date Last Done Comments CT Colonography 1955 FIT DNA/Cologuard 1955 FIT 1955 FOBT 1955 Sigmoidoscopy 1955 Zoster Vaccines (1 of 2) 2004 COVID-19 Vaccine ( season) 2025 01/14/2024, 06/13/2023, 03/21/2022, Additional history exists Influenza Vaccine (#1) 2025 , 06/13/2023, 02/06/2023, Additional history exists Depression Screening 09/16/2025 09/16/2024, 09/17/19 25 SDOH Screening 09/16/2025 09/16/2024 Alcohol/Substance Use Screening 01/13/2026 01/13/2025 Tobacco Screening 01/20/2026 01/20/2025 Colonoscopy 10/30/2026 10/30/2016 Colorectal Cancer Screening 10/30/2026 RSV Patients and Patients Aged 60 years or older (1 - 1-dose 75+ series) 2029 Lipid Panel 09/16/2029 09/16/2024, 09/0 10/2023, 07/03/2023, Additional history exists DTaP/Tdap/Td Vaccines (3 - Td or Tdap) 02/06/2033 02/06/2023, 05/23/2012, 02/27/2000 Hepatitis A Vaccines Aged Out 04/26/2003 No long er eligible based on patient's age to complete this topic Hepatitis B Vaccines Completed 07/02/2005, 08/06/2000, 03/19/2000 Pneumococcal Vaccine: 50+ Years Completed 02/05/2022, 12/02/2020 Hepatitis C Screening Completed 03/26/2023, 022 HIB Vaccines Aged Out No longer eligi [...] Chronic bilateral low back pain without sciatica XR ANKLE 3+ VIEWS RIGHT Routine 01/13/2025 1:50 PM EDT Polyarthralgia XR KNEE 3 VIEWS LEFT Routine 01/13/2025 11:32 AM EDT Polyarthralgia POCT TOMEKA-14 URINE DRUG SCREEN Routine 10/30/2024 9:04 AM EDT Opioid dependence in remission (CMS/HCC) LIPID PANEL, STANDARD Routine 09/16/2024 11:00 AM EDT Hypertriglyceridemia HEPATITIS C AB W/REFL TO HCV RNA, QN, PCR Routine 03/26/2023 9:55 AM EST Opioid dependence, uncomplicated (CMS/HCC) HM COLONOSCOPY Routine 10/30/2016 from Last 3 Months or Most Recently Relevant to Health Maintenance Results * XR Lumbar Spine 2-3 Views (01/20/2025 12:05 PM EDT) Anatomical Region Laterality Modality Spine, L-spine Radiographic Feli ging 01/20/2025 12:0 5 PM EDT Narrative 01/20/2025 12:15 PM EDT [address] [address] XRay Report Signed Patient: Stuart Rivers MR#: [id number] 6 : 1955 Acct:[id number] Age/Sex: 69 / M ADM Date: 01/20/25 [facility] Dr: Bita ORTIZ Ordering Physician: Bita Alvarez Date of Service: 01/20/25 Procedure(s): XR lumbar spine 2-3V Accession Number(s): [id number] cc: Bita Alvarez Reason for Exam: 69 [...] Luther Guaman MD 01/20/2025 12:12 PM EDT Dictated By: Luther Trujillo MD Signed By: <Electronically signed by Luther Del Real MD in OV> 01/20/25 1212 DD/ 1205 TD/TT: 01/20/25 1206 Wrapper Layer: Procedure Note Donotuseinterpreter, Image - 01/20/[address] [address] XRay Report Signed Patient: Stuart Rivers AMR#: [id number] 6 : 4Acct:[id number] Age/Sex: 69 / MADM Date: 01/20/25 Loc: [facility] Attending Dr: Bita ORTIZ Ordering Physician: Bita Alvarez Date of Service: 01/20/25 Procedure(s): XR lumbar spine 2-3V Accession Number(s): [id number] cc: Bita Alvarez Reason for Exam: 69 [...] multilevel thoracolumbar spondylosis. Electronically signed by: Luther Gauman MD 01/20/2025 12:12 PM EDT Dictated By: Luther Trujillo MD Signed By: <Electronically signed by Luther Del Real MDin OV> 01/20/25 1212 DD/ 1205 TD/TT: 01/20/25 1206 Wrapper Layer: Bita ORTIZ IMG XR PROCEDURES Edited Resul t - Final * XR Ankle 3+ Views Right (01/13/2025 1:50 PM EDT) Anatomical Region Laterality Modality Lower Extremities, Ankle Right Radiogr aphic Imaging 01/13/2025 1:50 PM EDT Narrative 01/13/2025 2:02 PM EDT [address] [address] XRay Report Signed Patient: Stuart Rivers MR#: [id number] 6 : 1955 Acct:[id number] Age/Sex: 69 / M ADM Date: 01/13/25 Loc: [facility] Attending Dr: Bita ORTIZ Ordering Physician: Bita Alvarez Date of Service: 01/13/25 Procedure(s): XR ankle RT min 3V Accession Number(s): [id number] cc: Bita Alvarez Reason for Exam: 69 y/o M with chronic joint pains. Check XR left knee and right ankle. EXAMINATION: XR ANKLE, right CLINICAL INFORMATION: 69 y/o M with chronic joint pains. COMPARISON: None available. TECHNIQUE: AP, lateral, and mortise views lower extremity joint, ankle. FINDINGS: Ankle mortise is congruent. There is no widening of the syndesmosis. Talar dome is intact. There are no calcaneal enthesophytes. Minimal degenerative irregularity is noted the inferior tip medial malleolus. XR/XR ankle RT min 3V IMPRESSION: Unremarkable ankle x-ray aside from mild chronic degenerative changes adjacent medial malleolus.. Electronically signed by: Juan Callahan MD 01/13/2025 01:59 PM EDT RP Dictated By: Juan Callahan MD Signed By: <Electronically signed by Juan Callahan MD in OV> 01/13/25 1359 DD/ 1350 TD/TT: 01/13/25 1355 Wrapper Layer: Procedure Note Donotuseinterpreter, Image - 01/13/[address] [address] XRay Report Signed Patient: Stuart Rivers AMR#: [id number] 6 : 1955cct:[id number] Age/Sex: 69 / MADM Date: 01/13/25 Loc: [facility] Attending Dr: Bita AVENDAÑOP Ordering Physician: Bita Alvarez Date of Service: 01/13/25 Procedure(s): XR ankle RT min 3V Accession Number(s): [id number] cc: Bita Alvarez Reason for Exam: 69 y/o M with chronic joint pains. Check XR left kneeand right ankle. EXAMINATION: XR ANKLE, right CLINICAL INFORMATION: 69 y/o M with chronic joint pains. COMPARISON: None available. TECHNIQUE: AP, lateral, and mortise views lower extremity joint, ankle. FINDINGS: Ankle mortise is congruent. There is no widening of the syndesmosis. Talar dome is intact. There are no calcaneal enthesophytes. Minimal degenerative irregularity is noted the inferior tip medial malleolus. XR/XR ankle RT min 3V IMPRESSION: Unremarkable ankle x-ray aside from mild chronic degenerative changes adjacent medial malleolus.. Electronically signed by: Juan Callahan MD 01/13/2025 01:59 PM EDT RP Dictated By: Juan Callahan MD Signed By: <Electronically signed by Juan Callahan MD in OV> 01/13/25 1359 DD/ 1350 TD/TT: 01/13/25 1355 Wrapper Layer: Bita ORTIZ IMG XR PROCEDURES Final Result * XR Knee 3 Views Left (01/13/2025 11:32 AM EDT) Anatomical Region Laterality Modality Lower Extremities, Knee Left Radiogra phic Imaging 01/13/2025 11:3 2 AM EDT Narrative 01/13/2025 2:03 PM EDT [address] [address] XRay Report Signed Patient: Stuart Rivers MR#: [id number] 6 : 1955 Acct:[id number] Age/Sex: 69 / M ADM Date: 01/13/25 Loc: .[facility] Attending Dr: Bita ORTIZ Ordering Physician: Bita Alvarez Date of Service: 01/13/25 Procedure(s): XR knee LT 3V Accession Number(s): [id number] cc: Bita Alvarez Reason for Exam: 69 y/o M with chronic joint pains. Check XR left knee and right ankle. EXAMINATION: XR KNEE, LEFT CLINICAL INFORMATION: 69 y/o M with chronic joint pains. COMPARISON: None available. TECHNIQUE: Three views of the left knee. FINDINGS: There is mild narrowing of the medial joint space. There is no soft tissue calcification. There are minute marginal osteophytes, tricompartmental. There is no joint effusion. XR/XR knee LT 3V IMPRESSION: Mild osteoarthritis. Electronically signed by: Juan Callahan MD 01/13/2025 02:00 PM EDT RP Dictated By: Juan Callahan MD Signed By: <Electronically signed by Juan Callahan MD in OV> 01/13/25 1400 DD/ 1132 TD/TT: 01/13/25 1355 Wrapper Layer: Procedure Note Donotuseinterpreter, Image - 01/13/[address] [address] XRay Report Signed Patient: Stuart Rivers AMR#: [id number] 6 : 4Acct:[id number] Age/Sex: 69 / MADM Date: 01/13/25 Loc: [facility] Attending Dr: Bita ORTIZ Ordering Physician: Bita Alvarez Date of Service: 01/13/25 Procedure(s): XR knee LT 3V Accession Number(s): [id number] cc: Bita Alvarez Reason for Exam: 69 y/o M with chronic joint pains. Check XR left kneeand right ankle. EXAMINATION: XR KNEE, LEFT CLINICAL INFORMATION: 69 y/o M with chronic joint pains. COMPARISON: None available. TECHNIQUE: Three views of the left knee. FINDINGS: There is mild narrowing of the medial joint space. There is no soft tissue calcification. There are minute marginal osteophytes, tricompartmental. There is no joint effusion. XR/XR knee LT 3V IMPRESSION: Mild osteoarthritis. Electronically signed by: Juan Callahan MD 01/13/2025 02:00 PM EDT RP Dictated By: Juan Callahan MD Signed By: <Electronically signed by Juan Callahan MD in OV> 01/13/25 1400 DD/ 1132 TD/TT: 01/13/25 1355 Wrapper Layer: us Bita Alvarez COUNSELOR MANAGER IMG XR PROCEDURES Final Result * (ABNORMAL) POCT TOMEKA-14 Urine Drug Screen (10/30/2024 9:04 AM EDT) THC Negative Negative Cocaine Screen, Urine Negative Negative Opiate Screen, Urine Negative Negative Methamphetamine Screen Urine Negative Negative Amphetamine Screen, Urine Negative Negative Benzodiazepines Screen, Urine Negative Negative Barbiturate Screen, Urine Negative Negative Methadone Screen, Urine Negative Negative Buprenophine Screen, Urine Positive(A) Negative TCA, Urine Negative Negative MDMA Urine Negative Negative ng/mL Oxycodone Screen, Urine Negative Negative Phencyclidine (PCP), Urine Negative Negative Fentanyl, Urine Negative Negative Urine Urine specimen obtained by clean catch procedure / Unknown 10/30/2024 9:04 AM EDT Israel Quigley MD POINT OF CARE TEST ENTER/EDIT ORDERABLES Final Result * (ABNORMAL) Lipid Panel, Standard (09/16/2024 11:00 AM EDT) Triglycerides 230(H) <150 mg/dL [facility] Comment:Desirable Triglyceri de: less than 150 mg/dLBorderline High Triglyceride 150-199 mg/dLHigh Triglyceride: 200-499 mg/dLVery High Triglyceride: greater than or equal to 5OO mg/dL Cholesterol 102 <200 mg/dL [facility] Comment:Desirable Cholestero l: less than 200 mg/dLBorderline High Cholesterol: 200-239 mg/dLHigh Cholesterol: greater than 239 mg/dL LDL Cholesterol Calculated 30 <100 mg/dL [facility] Comment:Desirable LDL: less than 100 mg/dLNear Optimal/Above Optimal LDL: 110- 129 mg/dLBorderline High LDL: 130-159 mg/dLHigh LDL: 160-189 mg/dLVery High LDL: greater than or equal to 190 mg/dL HDL Cholesterol 26(L) >40 mg/dL [facility] Comment:Desirable HDL: great er than 40 mg/dL Note: This HDL assay may give artificially low results in patients with liver disease. Blood Venous blood specimen / Unknown 09/16/2024 11:00 AM EDT 09/16/2024 1:26 PM EDT us Bita Alvarez COUNSELOR MANAGER LAB BLOOD ORDERABLES Final Res ult Performing Organization Address [facility] Co de Phone Number [facility] [address] [place] [address] [phone] * Hepatitis C Antibody with Reflex to HCV, RNA, Quantitative, Real-Time PCR (03/26/2023 9:55 AM EST) Hepatitis C Antibody Nonreactive Nonreactive [facility] Comment:Antibodies to HCV no t detected; does not exclude early acuteHCV infection. Blood Venous blood specimen / Unknown 03/26/2023 9:55 AM EST 03/26/2023 11:14 AM EST Israel Quigley MD LAB BLOOD ORDERABLES Final Res ult Performing Organization Address [facility] Co de Phone Number [facility] [address] [place] [address] [phone] * Colonoscopy (10/30/2016) Colonoscopy Normal Normal Narrative Dominique Grande - 10/30/2016 Repeat in 10 years Historical Provider HEALTH MAINTENANCE Final Result from Last 3 Months or Most Recently Relevant to Health Maintenance Insurance [employer] MEDICARE ADVANTAGE HMO Care Teams Oil Pipeline Operator Relationship Specialty Start Date End Date Bita Alvarez FNP [address] [place] [address] PCP - General Family Medicine 07/16/22
--- OUTSIDE RECORDS SUMMARY | 2025-01-20 13:14 | XMS_ITS | Encounter Summary ---
Author Organization [employer] Address [address] [place] [address] Care Team Providers Care Strategic Marketing Manager Name Role Phone Bita Alvarez DIANA Primary Care Provider [phone] Encounter Details Date Type Department Care Team ([facility] st Contact Info) Description 03/22/2023 Abstract [facility] [address], [place] [phone] Dominique Grande Social History Tobacco Use Types [...] Description 01/22/2025 9:15 AM EDT Office Visit [facility] [address] [place] [phone] Israel Quigley MD [address] [place] [address] 03/05/2025 9:00 AM EDT Office Visit [address] [address] Israel Quigley MD [address] [place] [phone] 04/21/2025 11:30 AM EST Office Visit [address] [address] Bita Alvarez FNP [address] [place], [place] [phone] documented as of this encounter Procedures Procedure Name Priority Date/Time Associated Diagnosis Comments COLONOSCOPY Routine 10/30/2016 documented in this encounter Results * Colonoscopy (10/30/2016) Colonoscopy Normal Normal Narrative Christiane Dominique - 10/30/2016 Repeat in 10 years us Historical Provider HEALTH MAINTENANCE Final Result documented in this encounter Visit Diagnoses Not on filedocumented in this encounter Additional Health Concerns Assessment Noted Time PHQ-9 Depression Total Score: 0 09/22/19 23 3:11 PM EDT documented as of this encounter Care Teams Strategic Marketing Manager Relationship Specialty Start Date End Date Bita Alvarez FNP [address] [place] [phone] PCP - General Family Medicine 07/16/22 documented as of this encounter
--- OUTSIDE RECORDS SUMMARY | 2025-01-20 13:14 | XMS_ITS | Encounter Summary ---
Author Organization [email or web address] Address [address] [facility] 7t [place] [address] Care Team Providers Care Environmental Manager Name Role Phone Bita Alvarez DIANA Primary Care Provider [phone] Reason for Visit * Reason Comments Med Refill Encounter Details Date Type Department Care Team (Late st Contact Info) Description 04/16/2023 Refill [facility] [address] [place], [place] [phone] Israel Quigley MD [address] [place], [place] [phone] Opioid dependence, uncomplicated (CMS/HCC) Social History Tobacco [...] Description 01/22/2025 9:15 AM EDT Office Visit [facility] [address] [place] [address] Israel Quigley MD [address] [place] [address] 03/05/2025 9:00 AM EDT Office Visit [address] [address] Israel Quigley MD [address] [place] [address] 04/21/2025 11:30 AM EST Office Visit [address] [address] Bita Alvarez FNP [address] [place] [address] documented as of this encounter Visit Diagnoses Diagnosis Opioid dependence, uncomplicated (CMS/HCC) documented in this encounter Additional Health Concerns Assessment Noted Time PHQ-9 Depression Total Score: 0 09/22/19 3:11 PM EDT documented as of this encounter Care Teams Environmental Manager Relationship Specialty Start Date End Date Bita Alvarez FNP [address] [place] [address] PCP - General Family Medicine 07/16/22 documented as of this encounter
--- OUTSIDE RECORDS SUMMARY | 2025-01-20 13:14 | XMS_ITS | Encounter Summary ---
Author Organization [employer] Address [address] [facility] 7t [place] [address] Care Team Providers Care Paradichlorobenzene Machine Operator Name Role Phone Bita Alvarez Primary Care Provider Reason for Visit * Reason Comments Med Refill Encounter Details Date Type Department Care Team (Late st Contact Info) Description 04/16/2024 Refill [facility] [address] [place] [address] Bita Alvarez FNP [address] [place], [place] [phone] Social History Tobacco Use Types Packs/Day Years [...] Description 01/22/2025 9:15 AM EDT Office Visit [facility] [address] [place] [address] Israel Quigley MD [address] [place] [address] 03/05/2025 9:00 AM EDT Office Visit [address] [address] Israel Quigley MD [address] [place] [address] 04/21/2025 11:30 AM EST Office Visit [address] [address] Bita Alvarez FNP 505 [place] [address] documented as of this encounter Visit Diagnoses Not on filedocumented in this encounter Additional Health Concerns Assessment Noted Time PHQ-9 Depression Total Score: 2 01/02/20 24 8:17 PM EDT documented as of this encounter Care Teams Paradichlorobenzene Machine Operator Relationship Specialty Start Date End Date Bita Alvarez FNP [address] [place] [address] PCP - General Family Medicine 07/16/22 documented as of this encounter
--- OUTSIDE RECORDS SUMMARY | 2025-01-20 13:14 | XMS_ITS | Encounter Summary ---
Author Organization [employer] Address 75 [facility] 7t [place] [address] Care Team Providers Care Sole Sewer Hand Name Role Phone Bita Alvarez Primary Care Provider Reason for Visit * Reason Comments Med Refill Encounter Details Date Type Department Care Team (Late st Contact Info) Description 05/04/2024 Refill [facility] 230 [place] [address] Bita Alvarez FNP [address] [place], [place] [phone] Social History Tobacco Use Types Packs/Day Years [...] Description 01/22/2025 9:15 AM EDT Office Visit [facility] [address] [place] [address] Israel Quigley MD [address] [place] [address] 03/05/2025 9:00 AM EDT Office Visit [address] [address] Israel Quigley MD [address] [place] [address] 04/21/2025 11:30 AM EST Office Visit [address] [address] Bita Alvarez FNP 505 [place] [address] documented as of this encounter Visit Diagnoses Not on filedocumented in this encounter Additional Health Concerns Assessment Noted Time PHQ-9 Depression Total Score: 2 01/02/20 24 8:17 PM EDT documented as of this encounter Care Teams Sole Sewer Hand Relationship Specialty Start Date End Date Bita Alvarez FNP 230 [place] [address] PCP - General Family Medicine 07/16/22 documented as of this encounter
--- OUTSIDE RECORDS SUMMARY | 2025-01-20 13:14 | XMS_ITS | Encounter Summary ---
Author Organization [employer] Address [address] [facility] 7t [place] [address] Care Team Providers Care Contracting Officer Name Role Phone Bita Alvarez Primary Care Provider [phone] Reason for Visit * Reason Comments Med Refill Encounter Details Date Type Department Care Team (Late st Contact Info) Description 02/25/2023 Refill [facility] 230 [place] [address] Bita Alvarez FNP [address] [place], [place] [phone] Social History Tobacco Use Types Packs/Day Years [...] Description 01/22/2025 9:15 AM EDT Office Visit [address] [address] Israel Quigley MD [address] [place] [address] 03/05/2025 9:00 AM EDT Office Visit [address] [address] Israel Quigley MD [address] [place] [address] 04/21/2025 11:30 AM EST Office Visit [address] [address] Bita Alvarez FNP 505 [place] [address] documented as of this encounter Visit Diagnoses Not on filedocumented in this encounter Additional Health Concerns Assessment Noted Time PHQ-9 Depression Total Score: 0 09/22/19 23 3:11 PM EDT documented as of this encounter Care Teams Contracting Officer Relationship Specialty Start Date End Date Bita Alvarez FNP [address] [place] [address] PCP - General Family Medicine 07/16/22 documented as of this encounter
[2025-01-20 13:26] LABS: Hematocrit 31.9 % (42.0-52.0); Hemoglobin 10.5 g/dl (14.0-18.0); Mean Corpuscular HGB Conc 32.9 g/dl (31.0-36.0); Mean Corpuscular Hemoglobin 28.8 pg (27.0-33.0); Mean Corpuscular Volume 87.4 fL (80.0-98.0); NRBC Abs Auto 0.100 X10*3/uL (0.0-0.012); Platelet Count 123 X10*3/uL (160-400); Red Blood Count 3.65 X10*6/uL (4.60-5.80); White Blood Count 5.8 X10*3/uL (4.8-10.8)
[2025-01-20 13:27] LABS: NRBC Pct Auto 1.7 /100WBC (0.0-0.2)
[2025-01-20 14:06] LABS: Hemoglobin A1C 157.6496 umol/L; Total Hemoglobin (HGBA1C) 4207.8667 umol/L
[2025-01-20 14:08] LABS: Anion Gap 12 (12-20); Blood Urea Nitrogen 20 mg/dL (9-16); Calcium 9.6 mg/dL (8.4-10.2); Carbon Dioxide 28 mmol/L (22-29); Chloride 101 mmol/L (96-108); Estimated Glomerular Filt Rate > 60; Potassium 4.1 mmol/L (3.3-5.1); Sodium 137 mmol/L (135-145)
[2025-01-20 14:20] LABS: Folate 14.9 ng/mL (> or = 4.0); Vitamin B12 782 pg/mL (200-900)
[2025-01-20 14:22] LABS: Atypical Lymph Absolute Manual 0.1 x10*3/uL; Atypical Lymphs Percent Manual 2 % (0-6); Band Neutrophils Percent 1 % (3-5); Basophils Abs Manual 0.3 X10*3/uL (0.0-0.2); Basophils Percent Manual 5 % (0-2); Eosinophils Absolute Manual 0.1 X10*3/uL (0.0-0.4); Eosinophils Percent Manual 1 % (0-4); Lymphocytes Absolute Manual 1.0 X10*3/uL (1.2-4.9); Lymphocytes Percent Manual 18 % (20-40); Monocytes Absolute Manual 0.2 X10*3/uL (0.1-1.2); Monocytes Percent Manual 4 % (2-11); Neutrophils Absolute Manual 4.1 X10*3/uL (2.0-8.3); Neutrophils Percent Manual 69 % (45-73)
[2025-01-20 14:23] LABS: Polychromasia 1+ (0-2) /OIF; RBC Morphology NOTED; Tear Drop Cells 1+ (0-2) /OIF
[2025-01-21 06:06] LABS: HIV Num 1 0.04 S/CO (0.00-0.99)
[2025-01-22 14:27] LABS: HCV Log PCR <1.18 NOT DETECTED Log IU/mL (NOT DETECTED); HepC Viral Load <15 NOT DETECTED IU/mL (NOT DETECTED)
== END 2025-01-20 10:41 | disposition home or self-care (01) ==
LOC: HO.HHCX 10:40
PROVIDERS: PCP Registered Nurse; Visit Provider Registered Nurse
DX: Z00.00 Encounter for general adult medical examination without abnormal findings (principal); M54.50 Low back pain, unspecified; G89.29 Other chronic pain; D64.9 Anemia, unspecified; Z11.4 Encounter for screening for human immunodeficiency virus [HIV]; Z11.59 Encounter for screening for other viral diseases; Z13.1 Encounter for screening for diabetes mellitus
CPT/HCPCS: 72100; 80048; 82306; 82607; 82746; 83036; 85007; 85025; 85027; 86592; 87389; 87522

== ENCOUNTER → 2025-01-20 11:29 | Outpatient (BNV) | payer MEDICARE, SELFPAY | PROVIDERS: PCP Registered Nurse; Visit Provider Radiology Diagnostic Radiology | DX: M54.50 Low back pain, unspecified (principal); G89.29 Other chronic pain | CPT/HCPCS: 72100 ==

== ENCOUNTER 2025-03-15 12:47 | Outpatient (RCR) | payer MEDICARE, SELFPAY ==
--- NOTE | 2025-02-17 11:58 | MHC.OT.EP ---
[facility] Office [address] [facility] [phone] F: [phone] F: [phone] Occupational Therapy Plan of Care Patient Name: Stuart Rivers Date of Evaluation: 02/17/25 Diagnosis: Left Wrist Pain Pain Location: Constant pain through left wrist, radiates down forearm volar and dorsally No specific tenderness to palpate Pain Score: 8 Pain Scale Used: Numeric (0 - 10) Aggravating Factors: Gripping, heavy use Alleviating Factors: Nothing used, tried wrist orthosis Assessment: 69 yo male w/ hx of joint pain, specifically referred to OT from PCP w/ left wrist pain, worsening over the past few months and causing him to drop items. On assessment, he reports pain localized to dorsal and radial wrist/forearm, no specific tenderness and no wrist instability noted. He has generalized decreased UB ROM w/ cervical, shoulder, wrist and digit tightness, but functional range for daily activities. 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 He has fascial adhesions noted through dorsal wrist at extensor retinaculum and we will cont OT to address myofascial and joint tightness w/ goal of ease of pain and movements with increased participation in desired daily activities. Frequency and Duration: The patient will be seen 1x/wk for 4 weeks Short Term Goals: Good follow through w/ HEP Progress to strengthening routine Good use of heat and massage in prep of movement and daily use Half-Way Goals: Full hook fist w/ ease Wrist flex/ext <60 degrees w/ ease LEft gross grasp >50lb Treatment Plan: Therapeutic Exercise Therapeutic Activity Home Exercise Program Patient Education ADL Training MHP Soft Tissue Mobilization Kinesiotaping Electronically Signed By: Elise Nickerson OTR/L CHT Please Sign and return to therapist. Thank you once again for your referral.
--- NOTE | 2025-03-15 13:40 | MHC.OT.DC ---
[facility] Office [address] [phone] F: [phone] F: [phone] Occupational Therapy Discharge Note Patient Name: Stuart Rivers Provider: CARINA Rivera Diagnosis: Left Wrist Pain Date of Evaluation: 02/17/25 Date of Discharge: 03/15/25 Treatments to Date: 3 Discharge Status: Achieved Goals Improved Function Independent with HEP Discharge Summary: 69 yo male presents to OT w/ left wrist pain. He has completed biref course of OT and is doing very well. No issues with object manipulation or dropping items. Good range and strength, good follow through w/ HEP and nighttime orthosis wear. Pain free, still seeing PT for back pain, but doing well with that as well. Goals met and no further OT needed at this time. Electronically Signed By: Elise Nickerson OTR/Silvestre CHT Reviewed/agree with student documentation: Therapist: Please Sign and return to therapist, thank you for your referral.
== END 2025-03-15 13:40 | disposition home or self-care (01) ==
LOC: HO.OT 12:47
PROVIDERS: PCP Registered Nurse; Visit Provider Registered Nurse
DX: M25.532 Pain in left wrist (principal)
CPT/HCPCS: 29125; 97110; 97140; 97165; 97760

== ENCOUNTER 2025-03-31 11:00 | Outpatient (RCR) | payer MEDICARE, SELFPAY ==
--- NOTE | 2025-03-05 08:11 | MHC.PT.EP ---
[facility] [place] Office [place] [facility] [place] Office [address] Eliud Manzo [address] [phone] F: [phone] F: [phone] F: [phone] F: [phone] Physical Therapy Plan of Care Date of Evaluation: 03/03/25 Date of Surgery: n/a Diagnosis: Chronic bilateral low back pain without sciatica Assessment: Pt is a pleasant and motivated 69yo M who presents to PT with B low back. 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 He presents to PT with current impairments in pain, decreased ROM, decreased core stabilization, decreased hip/glute strength, soft tissue restrictions, impaired posture, and impaired body mechanics. He is limited functionally by raking, bending, lifting, prolonged standing, stair navigation, and getting out of bed. He is an excellent candidate for skilled PT in order to address current impairments to facilitate return to PLOF. He is recommended to be seen 2x/week for 4 weeks and will be reassessed at that time Frequency and Duration: The patient will be seen 2x/week for 4 weeks Short Term Goals: Pt will be I with HEP to promote self management of symptoms Pt will demonstrate improvements in postural awareness and body mechanics throughout the day Pt will improve B hip ABD strength to at least 4+/5 B Audio Installer Goals: Pt will tolerate prolonged standing and walking > 1 hour with minimal to no pain Pt will perform outdoor tasks such as raking with improved mechanics and minimal to no pain Pt will demonstrate ability to squat and nut picker object with proper mechanics and without pain Treatment Plan: Modalities to reduce pain, spasms and effusion. Manual therapy to restore motion and function. Therapeutic exercise to improve strength and flexibility. Neuromuscular re-education for posture and balance. Therapeutic activities to return to functional activities of daily living. Electronically signed by: Tarah Thacker, PT, DPT Please sign and return to therapist. Thank you for your referral.
--- NOTE | 2025-04-06 15:13 | MHC.PT.DC ---
[facility] [place] Office [place] Office [place] Office [address] Eliud Manzo [address] [phone] F: [phone] F: [phone] F: [phone] F: [phone] Physical Therapy Discharge Report Diagnosis: Chronic bilateral low back pain without sciatica Date of Surgery: n/a Date of Evaluation: 03/03/25 Date of Discharge: 04/06/25 Treatments to Date: 5 Cancellations to Date: No Shows to Date: Discharge Status: Improved Function Independent with HEP Discharge Summary: Pt was seen for skilled PT from 03/03/25-03/31/25. His last attended appointment was 03/31/25. He made good progress with skilled PT since SOC. He had a decrease in symptoms and made good progress toward his STGs and LTGs. He demonstrated independence with HEP. He is being D/C from skilled PT as he did not have insurance authorization for his last scheduled visit Electronically signed by: Tarah Thacker, PT, DPT Please sign and return to therapist. Thank you for your referral.
== END 2025-04-06 15:12 | disposition home or self-care (01) ==
LOC: HO.PT 11:00
PROVIDERS: PCP Registered Nurse; Visit Provider Registered Nurse
DX: M54.50 Low back pain, unspecified (principal); G89.29 Other chronic pain
CPT/HCPCS: 97110; 97140; 97162

== ENCOUNTER 2025-04-09 11:37 | Outpatient (REF) | payer MEDICARE, SELFPAY ==
--- NOTE | ~2025-04-09 | XR_ITS ---
EXAMINATION: XR KNEE, RIGHT CLINICAL INFORMATION: M17.11 - Unilateral primary osteoarthritis, right knee COMPARISON: X-ray 03/26/2022 TECHNIQUE: Two views of the right knee. AP bilateral knees one view FINDINGS: Right knee: Patient is status post right total knee arthroplasty. Expected position and alignment. No suspicious perihardware lucency. No acute periprosthetic fracture. No significant effusion. No abnormal soft tissue calcification. Left knee: Mild medial compartment joint space loss. XR/XR knee RT 3V IMPRESSION: Right knee: Right knee arthroplasty. No acute findings seen. Electronically signed by: Anthony Connell MD 04/09/2025 03:41 PM EST
== END 2025-04-09 11:38 | disposition home or self-care (01) ==
LOC: HO.HOSX 11:37
PROVIDERS: Visit Provider Physician Assistant
DX: M17.11 Unilateral primary osteoarthritis, right knee (principal); Z96.651 Presence of right artificial knee joint
CPT/HCPCS: 73562

== ENCOUNTER 2025-04-09 11:46 | Outpatient (AMB) | payer MEDICARE, SELFPAY ==
--- NOTE | 2025-04-09 11:47 | A.OFFVIS_ITS ---
Vital Signs 04/09/25 12:10 Height 5 ft 8 in Weight 194 lb BMI 29.5 Intake Visit Reasons: BUILDING SERVICES COORDINATOR-RT knee pain, s/p TKA 12/2021 [place] Intake Note: Stuart is a 69 year old male who presents today with complaints of right knee pain. Patient had a right TKA, performed by Dr. Rodriguez on 01/02/22. Today patient reports for the past couple of months he has a weird feeling inside his knee, states as if something is rubbing and does not feel right. Denies injury. Complaints of pain at the anterior side of ankle that travels up his knee. Allergies No Known Allergies Allergy (Verified 03/01/25 14:46) Medication List - Last Reconciled 04/09/25 by Ermelinda Tyson PA-C buprenorphine ER (Sublocade) 100 mg subcut QMONTH buprenorphine ER (Sublocade) 100 mg subcut DAILY carbidopa-levodopa 25-100 mg 1 tab PO TID 90 days cyanocobalamin (vitamin B-12) 1 tab PO DAILY lisinopril-hydrochlorothiazide 20-25 mg 1 tab PO DAILY omega-3 fatty acids-fish oil 340-1,000 mg (Fish Oil) 1 cap PO DAILY Held on 01/04/22. Instructions: Resume on 02/13/22. Hold for 6 weeks while taking full dose Aspirin to prevent bleeding. ramelteon 8 mg PO BEDTIME rosuvastatin 20 mg PO BEDTIME selegiline HCl 5 mg PO BID 90 days sennosides (Senna Lax) 17.2 mg PO DAILY walker Folding Front wheeled walker HPI HPI BUILDING SERVICES COORDINATOR-RT knee pain, s/p TKA 12/2021 [place]: Details: 69-year-old gentleman presents to the office today for right knee pain. He is status post right total knee arthroplasty with Dr. Rodriguez in December of 2021. He states he was doing well after surgery but recently he has been developing some anterior knee pain which is worse with stairs or deep bending. He denies any instability. No recent injury. No fever or chills. [facility] Medical History GERD (gastroesophageal reflux disease) HTN (hypertension) Normochromic normocytic anemia Surgical History History of right knee surgery History of surgery History of esophagogastroduodenoscopy (EGD) Hx of colonoscopy Family History Maternal Aunt Cancer Social History Household Members: Spouse Housing: House Are you a primary intensive care ambulance paramedic to a significant other at home: No Do you presently have visiting nurse or other home services: No Alcohol intake: never Patient Tobacco Use Status: Never used Tobacco Substance Use Type: Former Substance User service: No Current occupational status: retired Current occupation: right handed/ landscaping Review of Systems Const All systems reviewed & are unremarkable except as noted in HPI and below Physical Exam Vital Signs: BMI result Body Mass Index 29.5 Const General: cooperative and no acute distress Orientation/consciousness: patient oriented x3 Resp Effort & Inspection: normal respiratory effort and able to speak in complete sentences Cardio Peripheral pulses: Peripheral pulses 2+ throughout Neuro General: patient oriented x3 Extrem Other: Right knee incision is well healed. There is no erythema or joint effusion present. No warmth over the knee. He is able to fully extend the knee and flex to 110 degrees. He has good quad activation. Does have lateral retropatellar tenderness and discomfort with patellar grind. No laxity noted. Calf is supple and nontender neurovascularly intact. Results Reviewed Results Reviewed: X-rays of the right knee obtained in the office today and reviewed by me show intact orthopedic hardware without signs of loosening or fracture. Assessment & Plan Assessment & Plan (1) Status post total knee replacement, right: Code(s): Z96.651 - Presence of right artificial knee joint Category: Surgical Plan: I reassured the patient there is no hardware abnormalities and no evidence of infection. I encouraged him to work with physical therapy for some strengthening conditioning exercises to help with the tracking of his patella. And can use anti-inflammatories for acute flare-ups as needed. He can increase activities as tolerated. If symptoms persist or worsen he should contact our lyle gonzales and see Dr. Rodriguez to discuss further. Otherwise she will follow up as needed. Orders: Orders XR knee RT 3V Today M17.11 - Unilateral primary osteoarthritis, right knee PT Evaluation and Treatment Today Z96.651 - Presence of right artificial knee joint Coding Level of Care Code Est Pt Level 3 (37165) Complex visit Add On G2211 Diagnoses Status post total knee replacement, right Z96.651
[2025-04-09 12:10] VITALS: BMI 29.5
== END 2025-04-09 12:38 | disposition home or self-care (01) ==
LOC: HO.HOS 11:46
PROVIDERS: Visit Provider Physician Assistant
DX: M25.561 Pain in right knee (principal); Z96.651 Presence of right artificial knee joint
CPT/HCPCS: 99213; G2211

== ENCOUNTER → 2025-04-09 12:00 | Outpatient (BNV) | payer MEDICARE, SELFPAY | PROVIDERS: Visit Provider Radiology Diagnostic Ultrasound | DX: M17.11 Unilateral primary osteoarthritis, right knee (principal) | CPT/HCPCS: 73562 ==

== ENCOUNTER 2025-04-27 10:09 | Outpatient (REF) | payer MEDICARE, SELFPAY ==
[2025-04-27 10:28] LABS: MANUAL DIFF FLAG NO
[2025-04-27 10:53] LABS: Hematocrit 32.8 % (42.0-52.0); Hemoglobin 11.2 g/dl (14.0-18.0); Imm Gran Abs Auto 0.23 X10*3/uL (0.00-0.03); Imm Gran Pct Auto 3.9 % (0.0-0.4); Lymphocytes Absolute Auto 1.2 X10*3/uL (1.2-4.9); Mean Corpuscular HGB Conc 34.1 g/dl (31.0-36.0); Mean Corpuscular Hemoglobin 29.0 pg (27.0-33.0); Mean Corpuscular Volume 85.0 fL (80.0-98.0); NRBC Abs Auto 0.060 X10*3/uL (0.0-0.012); Platelet Count 133 X10*3/uL (160-400); Red Blood Count 3.86 X10*6/uL (4.60-5.80); White Blood Count 5.9 X10*3/uL (4.8-10.8)
[2025-04-27 10:54] LABS: NRBC Pct Auto 1.0 /100WBC (0.0-0.2)
--- OUTSIDE RECORDS SUMMARY | 2025-04-27 11:12 | XMS_ITS | Encounter Summary ---
Author Organization [employer] Address [address] [place] [address] 7t [place] [address] Care Team Providers Care Home Improvement Contractor Name Role Phone Bita Alvarez RENEWABLE ENERGY TRADER Primary Care Provider [phone] Reason for Visit * Reason Comments Med Refill Encounter Details Date Type Department Care Team (Late st Contact Info) Description 01/22/2023 Refill [facility] [address] [place] [address] [phone] Israel Quigley MD [address] [place] [address] [phone] Opioid use disorder in remission Social History [...] Care Team (Late st Contact Info) Description 05/14/2025 9:00 AM EST Office Visit [facility] [address] [place] [address] [phone] Israel Quigley MD [address] [place], [place] [phone] 07/21/2025 11:30 AM EDT Office Visit [facility] 230 [place] [address] Bita Alvarez FNP 505 [place] [address] documented as of this encounter Visit Diagnoses Diagnosis Opioid use disorder in remission documented in this encounter Additional Health Concerns Assessment Noted Time PHQ-9 Depression Total Score: 0 09/22/19 3:11 PM EDT documented as of this encounter Care Teams Home Improvement Contractor Relationship Specialty Start Date End Date Bita Alvarez FNP 230 [place] [address] PCP - General Family Medicine 07/16/22 documented as of this encounter
--- OUTSIDE RECORDS SUMMARY | 2025-04-27 11:12 | XMS_ITS | Patient Health Record ---
Author Organization [employer] Address [address] [place] [phone] Care Team Providers Care Bakery Manager Name Role Phone HerreraDeangelo Unavailable [phone] Reason For Referral No Information Plan Of Treatment No Information
--- OUTSIDE RECORDS SUMMARY | 2025-04-27 11:13 | XMS_ITS | Encounter Summary ---
Author Organization [employer] Address [address] [facility] 7t [place] [address] Care Team Providers Care Greenhouse Or Nursery Transplanter Name Role Phone Bita Alvarez Primary Care Provider [phone] Reason for Visit * Reason Comments Med Refill Encounter Details Date Type Department Care Team (Late st Contact Info) Description 08/25/[address] [facility] [address] [place] [address] Bita Alvarez FNP [address] [place], [place] [phone] Social History Tobacco Use Types Packs/Day Years [...] Description 05/14/2025 9:00 AM EST Office Visit [address] [address] Israel Quigley MD [address] [place] [address] 07/21/2025 11:30 AM EDT Office Visit [address] [address] Bita Alvarez FNP [address] [place] [address] documented as of this encounter Visit Diagnoses Not on filedocumented in this encounter Additional Health Concerns Assessment Noted Time PHQ-9 Depression Total Score: 2 01/02/20 24 8:17 PM EDT documented as of this encounter Care Teams Greenhouse Or Nursery Transplanter Relationship Specialty Start Date End Date Bita Alvarez FNP [address] [place] [address] PCP - General Family Medicine 07/16/22 documented as of this encounter
--- OUTSIDE RECORDS SUMMARY | 2025-04-27 11:13 | XMS_ITS | Encounter Summary ---
Author Organization [employer] Address [address] [facility] 7t [place] [address] Care Team Providers Care Package Maker Name Role Phone Bita Alvarez Primary Care Provider [phone] Reason for Visit * Reason Onset Date Comments Referral 04/05/2025 Encounter Details Date Type Department Care Team ([facility] st Contact Info) Description 04/05/[address] [facility] [address] [place] [address] Bita Alvarez FNP [address] [place], [place] [phone] Referral Social History Tobacco Use Types Packs/Day Years [...] encounter Miscellaneous Notes * Telephone Encounter - DIANA Rivera - 04/06/2025 6:51 PM EST Richie Groves -- I addended note from Jan 2025, would you be able to send referral to [facility]? Thanks! * Telephone Encounter - Marylou Knott RN - 04/05/2025 1:36 PM EST Called pt regarding request for referral, spoke to pt. Pt states had a total knee replacement done 4 years ago, and is having decreased ROM and pain for several months. Pt requesting referral to Ortho at [facility] for follow up. Pt has appointment with PCP on 04/21 and is encouraged to keep that appointment to speak to PCP at that time. Pt understands and agrees with plan. * Telephone Encounter - Mary Eisenberg - 04/05/2025 12:03 PM EST Tc from pt requesting a referral for the right knee Please contact at [phone] documented in this encounter Plan of Treatment Upcoming Encounters Date Type Department Care Team (Late st Contact Info) Description 05/14/2025 9:00 AM EST Office Visit [address] [address] Israel Quigley MD [address] [place] [address] 07/21/2025 11:30 AM EDT Office Visit [address] [address] Bita Alvarez FNP [address] [place] [address] documented as of this encounter Visit Diagnoses Not on filedocumented in this encounter Additional Health Concerns Assessment Noted Time PHQ-9 Depression Total Score: 4 09/17/19 25 10:03 AM EDT documented as of this encounter Care Teams Package Maker Relationship Specialty Start Date End Date Bita Alvarez FNP [address] [place] [address] PCP - General Family Medicine 07/16/22 documented as of this encounter
--- OUTSIDE RECORDS SUMMARY | 2025-04-27 11:13 | XMS_ITS | Clinical Summary ---
Author Organization [employer] Address [address] [facility] [address] [place] [address] Care Team Providers Care Art Instructor Name Role Phone Bita Alvarez DIANA Primary Care Provider [phone] Allergies No known active allergies Medications carbidopa-levodop a (Sinemet) 25-100 MG tablet Take 1 tablet by mouth 3 times daily. 023 Active selegiline (Eldepryl) 5 MG capsuleIndication s:Parkinson's disease, unspecified whether dyskinesia present, unspecified whether manifestations fluctuate (CMS/HCC) (HCC) TAKE 1 CAPSULE BY MOUTH TWICE DAILY WITH BREAKFAST AND LUNCH 024 Active ramelteon (Rozerem) 8 MG tabletIndications :Insomnia, unspecified type Take 1 tablet (8 mg) by mouth if needed at bedtime for sleep (Take 30 minutes before bed.). 30 tablet 1 024 Active tiZANidine (Zanaflex) 2 MG tabletIndications :Muscle spasm Take 1-2 tablets (2-4 mg) by mouth every 8 (eight) hours if needed for muscle spasms. 30 tablet 024 Active senna (Senokot) 8.6 MG tabletIndications :Constipation due to opioid therapy TAKE 2 TABLETS BY MOUTH EVERY DAY NEEDED FOR CONSTIPATION 180 tablet 3 024 Active docusate sodium (Colace) 100 MG capsuleIndication s:Constipation due to opioid therapy TAKE 1 CAPSULE BY MOUTH EVERY DAY AT BEDTIME NEEDED FOR CONSTIPATION 90 capsule 3 04/05/20 25 1:24 PM EST 025 Active senna (Senokot) 8.6 MG tabletIndications :Constipation due to opioid therapy Take 1-2 tablets (8.6-17.2 mg) by mouth if needed at bedtime for constipation. 180 tablet 3 04/14/20 12:21 PM EST 025 2025 Active Sublocade 100 MG/0.5ML injectionIndicati ons:Opioid dependence, uncomplicated (CMS/HCC) ([facility]) INJECT 0.5 ML SUBCUTANEOUSLY EVERY MONTH TO ABSORB CONTINUALLY 0.5 mL 5 03/19/20 9:02 AM EST 025 Active pantoprazole (ProtoNix) 20 MG EC tabletIndications :Gastroesophageal reflux disease, unspecified whether esophagitis present TAKE 1 TABLET BY MOUTH TWICE DAILY DO NOT BREAK, CRUSH, DISSOLVE OR CHEW 180 tablet 1 04/14/20 12:21 PM EST 025 Active rosuvastatin (Crestor) 20 MG tabletIndications :Hypertriglycerid emia TAKE 1 TABLET BY MOUTH AT BEDTIME (for cholesterol) 90 tablet 1 04/14/20 12:21 PM EST Active Magnesium 400 MG capsule Take 400 mg by mouth at bedtime. 90 capsule 1 Active lisinopril-hydroC HLOROthiazide 20-25 MG tabletIndications :Primary hypertension Take 1 tablet by mouth Once per day. 90 tablet 3 04/14/20 12:21 PM EST Active cyanocobalamin (Vitamin B-12) 1000 MCG tablet TAKE 1 TABLET(1000 MCG) BY MOUTH IN THE MORNING 90 tablet 3 Active omega-3 (Fish Oil) 1000 MG capsule Take 1 capsule (1,000 mg) by mouth in the morning. 90 capsule 3 025 Active buprenorphine-nal oxone (Suboxone) 2-0.5 MG per sublingual filmIndications:O pioid dependence on maintenance agonist therapy, no symptoms (CMS/HCC) ([facility]) Place 1 Film under the tongue Once per day. As Needed. 30 Film 03/19/20 10:23 AM EST 025 Active loratadine (Claritin) 10 MG tabletIndications :Throat irritation TAKE 1 TABLET BY MOUTH EVERY DAY 90 tablet 3 04/14/20 25 12:21 PM EST 025 Active loratadine (Claritin) 10 MG tabletIndications :Throat irritation Take 1 tablet (10 mg) by mouth Once per day. 90 tablet 1 025 2024 Discontinued Active Problems Problem Noted Date Diagnosed Date Other spondylosis, thoracolumbar region 04/21/20 Overview (04/21/2025): 01/20/25: Lumbar Xray demonstrated mild multilevel thoracolumbar spondylosis. Assessment & Plan (04/21/2025 3:13 PM EST): - Completed physical therapy with good response to therapy - Continue with home physical therapy exercises Hypertriglyceridemia 01/13/2024 Overview (01/12/2025): Lab Results Component Value Date TRIG 230 (H) 09/16/2024 TRIG 804 (H) 01/10/2024 TRIG 300 (H) 07/03/2023 Assessment & Plan (01/20/2025 4:43 PM EDT): -Continues omega-3 supplements -Initiated rosuvastatin 20mg nightly on 01/13/24 -Denies hx of pancreatitis -Advised avoid alcohol use, reduce intake of simple carbohydrates -Currently asymptomatic, reviewed ED precautions -Consider PA for icosapent ethyl Assessment & Plan (01/12/2025 9:25 PM EDT): [...] supplements Insomnia 01/02/2024 Assessment & Plan (01/20/2025 4:45 PM EDT): Continue with sleep hygiene interventions [...] read before trying to re-initiate sleep. - Cont Ramelteon PRN Assessment & Plan (01/28/2024 10:00 PM EDT): [...] safety and SE Healthcare maintenance 02/06/2023 Overview (01/20/2025): Colonoscopy completed 10/30/16 through [facility]. Due for repeat in 10 years OPH: 12/27/23 [facility]. (+) cataracts. Last PE: 01/20/25 PSA: wnl (0.37) on 01/10/24 DXA: ordered 01/13/25 Health Care Proxy: reports is his HCP, encouraged to bring in copy of paperwork to HIM Assessment & Plan (02/07/2023 10:00 AM EDT): Flu and tetanus booster administered today in office Parkinson disease ([facility]) 09/23/2022 Overview (01/01/2024): Tremor of left hand and left lower extremity since approx 2018 tapping sensation of left foot. Tremor at rest, not noted during activity. Pt right hand dominant. Eval with [facility] - Dr. Calle September 2021. Plan for observation and follow up in [address] Schwab Dec 2022. Initiated on the following regimen through Neuro with noted improvement in tremor: Carbidopa-levodopa 25-100 mg QID Selegiline 5mg BID Assessment & Plan (01/20/2025 4:45 PM EDT): -Reports symptoms well controlled with current med regimen Assessment & Plan (01/12/2025 9:26 PM EDT): [...] Opioid use disorder 09/23/2022 Assessment & Plan (01/20/2025 4:45 PM EDT): Continue following with [facility] program Doing well on Sublocade injection >20 years in recovery Cont Colace and senna PRN for SE of constipation Assessment & Plan (01/12/2025 9:26 PM EDT): Continue following with [facility] program Doing well on Sublocade injection Cont Colace and senna PRN for SE of constipation Assessment & Plan (09/16/2024 3:17 PM EDT): Continue following with [facility] program Doing well on Sublocade injection Cont Colace and senna PRN for SE of constipation Requesting to test utox today, completed. Assessment & Plan (01/02/2024 7:39 PM EDT): Continue following with [facility] program Doing well on Sublocade injection Cont Colace and senna PRN for SE of constipation Assessment & Plan (09/23/2022 11:54 AM EDT): Continue following with [facility] program Continues on Suboxone 2-0.5mg TID, denies cravings Cont Colace and senna PRN for SE of constipation Normocytic anemia 09/23/2022 Assessment & Plan (04/21/2025 3:16 PM EST): Following with [facility] - Dr. Camacho Consult Feb 2025: suspect anemia of chronic disease, now with mild thrombocytopenia as well. Plan to trend the Hbg level, procrit if Hbg < 10. Assessment & Plan (01/20/2025 4:44 PM EDT): Previously following with [facility] Dr. Camacho Stable Assessment & Plan (01/12/2025 9:26 PM EDT): Following with [facility] Dr. Camacho (reports last visit within past 12 months, stable). Assessment & Plan (01/02/2024 7:42 PM EDT): Following with [facility] Dr. Camacho (reports last visit within past 12 months, stable). Assessment & Plan (09/23/2022 11:58 AM EDT): Following with [facility] Dr. Camacho History of total right knee replacement 09/05/19 23 Overview (09/23/2022): Right TKA 01/02/[address] Rodriguez - [facility] Completed PT and rehab following surgery Assessment & Plan (04/21/2025 3:12 PM EST): - Seen by [facility] 04/09/25 for right knee pain. XR demonstrated intact orthopedic hardware w/o signs of loosening or fracture. Encouraged physical therapy and analgesics PRN. F/up as needed. Assessment & Plan (09/23/2022 11:43 AM EDT): Reports no longer with pain in right knee. Hypertension 05/23/2012 Overview (01/20/2025): Goal < 140/80 mmHg Continue lisinopril-hydrochlorothiazide 20-25mg daily EKG NSR Dec 2021 Assessment & Plan (01/20/2025 4:44 PM EDT): - Reports home readings 120s/80s. Elevated in office, but pt suspects that is due to not taking his meds this AM due to rushing out the door. Advised to contact us if home readings above goal. Assessment & Plan (02/07/2023 9:56 AM EDT): Continue with lifestyle interventions such as low salt diet and physical activity Active order for repeat CMP Assessment & Plan (09/23/2022 11:57 AM EDT): Continue with lifestyle interventions such as low salt diet and physical activity Gastroesophageal reflux disease 05/23/2012 Assessment & Plan (01/20/2025 4:44 PM EDT): - Cont pantoprazole BID. Reviewed med use and SE Assessment & Plan (01/02/2024 7:41 PM EDT): - Decreased effectiveness with dinner meal - Switch from omeprazole daily to pantoprazole BID. Reviewed med use and SE Diverticular disease 05/23/2012 Resolved Problems Problem Noted Date Diagnosed Date Resolved Date Polysubstance abuse 05/23/2012 06/26/19 24 Impaired glucose tolerance 05/23/2012 0 01/27/2024 Encounters Date Type Department Care Team Description 04/27/2025 Orders Only GENERIC EXTERNAL DATA DEPARTMENT Provider, Generic External Data 04/21/2025 11:30 AM EST Office Visit [facility] [address] [place] [phone] Bita Alvarez FNP Other spondylosis, thoracolumbar region (Primary Dx); Encounter for immunization; History of total right knee replacement; Normocytic anemia; Abdominal discomfort 04/21/2025 Travel 2025 Telephone [facility] [address] [place] [phone] Rudy [place], [place] 04/06/2025 Telephone [facility] [address] [place] [address] Bita Alvarez FNP DEXA ORDER 04/05/2025 Telephone [facility] [address] [place] [address] Bita Alvarez FNP Referral 04/05/2025 Refill [facility] [address] [place] [phone] Bita Alvarez FNP Throat irritation 03/31/2025 Telephone [facility] [address] [place] [address] Bita Alvarez FNP DEXA 03/19/2025 9:00 AM EST Office Visit [facility] [address] [place] [phone] Israel Quigley MD Opioid dependence on maintenance agonist therapy, no symptoms (CMS/HCC) (HCC) (Primary Dx); Opioid use disorder in remission 03/19/2025 Travel 03/02/2025 Refill [facility] [address] [place] [address] Bita Alvarez FNP Constipation due to opioid therapy 02/05/2025 Telephone [facility] [address] [place], [place] [phone] Bita Alvarez FNP Referral 02/04/2025 Results Follow-Up [facility] [address] [place], [place] [phone] Bita Alvarez FNP Vitamin D, 25-Hydroxy, Total, Immunoassay, Vitamin B12/Folate, Serum Panel, Basic Metabolic Panel, Additional followed-up results: 4 from Last 3 Months Immunizations Immunization Administration Dates Next Due Hep A, Adult 04/26/2003 Hep B, adult 07/02/2005,08/06/2000,03/19/2000 Influenza High-dose Quadriva lent Preservative Free 06/13/2023,02/06/2023,02/05/2022,2020 Influenza injectable quadriv alent IIV4 with preservative 03/26/2016,02/08/2015 Influenza injectable quadriv alent preservative free 05/02/2018 Influenza, High Dose Seasona l, Preservative Free 04/21/2025 Influenza, IIV3, injectable 05/25/2014, 7,05/30/2005 Influenza, Split (incl. malachi fied surface antigen) 05/23/2012 Influenza, trivalent, adjuvanted 01/14/2024 Pfizer Covid-19 Vaccine 12+ 04/21/2025 Pneumococcal Conjugate PCV 13 12/02/2020 Pneumococcal Conjugate [...] Sign Reading Time Taken Comments Blood Pressure 110/66 04/21/2025 12:05 PM EST Pulse 100 04/21/2025 12:05 PM EST Temperature 36.8 C (98.3 F) 04/21/2025 12:05 PM EST Respiratory Rate 18 04/21/2025 12:05 PM EST Oxygen Saturation 95% 01/20/2025 9:18 AM EDT Inhaled Oxygen Concentration - - Weight 87.1 kg (192 lb) 04/21/2025 12:05 PM EST Height 165.7 cm (5' 5.25 ) 04/21/2025 12:[address] Body Mass Index 31.71 04/21/2025 12:05 PM EST Plan of Treatment Upcoming Encounters Date Type Department Care Team (Late st Contact Info) Description 05/14/2025 9:00 AM EST Office Visit [facility] [address] [place] [address] Israel Quigley MD [address] [place] [address] 07/21/2025 11:30 AM EDT Office Visit [facility] [address] [place] [address] Kim Bita, CLINICAL LAB TECHNOLOGIST [address] [place] [address] Health Maintenance Due Date Last Done Comments CT Colonography 1954 FIT DNA/Cologuard 1954 FIT 1954 FOBT 1955 Sigmoidoscopy 1954 Zoster Vaccines (1 of 2) 2004 Depression Screening 09/16/2025 09/16/2024, 09/17/19 25 SDOH Screening 09/16/2025 09/16/2024 COVID-19 Vaccine ( season) 2025 04/21/2025, 01/14/2024, 06/13/2023, Additional history exists Alcohol/Substance Use Screening 01/13/2026 01/13/2025 Tobacco Screening 04/21/2026 04/21/2025 Colonoscopy 10/30/2026 10/30/2016 Colorectal Cancer Screening 10/30/2026 [...] Completed 02/05/2022, 12/02/2020 Hepatitis C Screening Completed 01/20/2025 , 03/26/2023, 10/10/2021 Influenza Vaccine Completed 04/21/2025, , 06/13/2023, Additional history exists HIB Vaccines Aged Out [...] Procedure Name Priority Date/Time Associated Diagnosis Comments CBC WITH AUTO DIFFERENTIAL Routine 04/27/2025 10:26 AM EST AMB REFERRAL TO ORTHOPAEDIC SURGERY Routine 04/09/2025 History of total right knee replacement Right knee pain, unspecified chronicity HEPATITIS C VIRAL RNA, QUANTITATIVE, REAL-TIME PCR Routine 01/20/2025 10:54 AM EDT Healthcare maintenance LIPID PANEL, STANDARD Routine 09/16/2024 11:00 AM EDT Hypertriglyceridemi a HM COLONOSCOPY Routine 10/30/2016 from Last 3 Months or Most Recently Relevant to Health Maintenance Results * (ABNORMAL) CBC auto differential (04/27/2025 10:26 AM EST) White Blood Count 5.9 4.8 - 10.8 X10*3/uL [facility] Red Blood Count 3.86(L) 4.60 - 5.80 X10*6/uL [facility] Hemoglobin 11.2(L) 14.0 - 18.0 g/dl [facility] Hematocrit 32.8(L) 42.0 - 52.0 % [facility] Mean Corpuscular Volume 85.0 80.0 - 98.0 fL [facility] Mean Corpuscular Hemoglobin 29.0 27.0 - 33.0 pg [facility] Mean Corpuscular HGB Conc 34.1 31.0 - 36.0 g/dl [facility] Red Cell Distribution Width 16.5(H) 11.0 - 16.0 % [facility] Platelet Count 133(L) 160 - 400 X10*3/uL [facility] Mean Platelet Volume 8.9(L) 9.4 - 12.4 fL [facility] Neutrophils Percent Auto 66.3 45 - 73 % [facility] Imm Gran Pct Auto 3.9(H) 0.0 - 0.4 % [facility] Lymphocytes Percent Auto 20.5 20 - 40 % [facility] Monocytes Percent Auto 6.8 2 - 11 % [facility] Eosinophils Percent Auto 1.5 0 - 4 % [facility] Basophils Percent Auto 1.0 0 - 2 % [facility] NRBC Pct Auto 1.0(H) 0.0 - 0.2 /100WBC [facility] Neutrophils Absolute Auto 3.9 2.0 - 8.3 x10*3/uL [facility] Imm Gran Abs Auto 0.23(H) 0.00 - 0.03 X10*3/uL [facility] Lymphocytes Absolute Auto 1.2 1.2 - 4.9 X10*3/uL [facility] Monocytes Absolute Auto 0.4 0.1 - 1.2 X10*3/uL [facility] Eosinophils Absolute Auto 0.1 0.0 - 0.4 X10*3/uL [facility] Basophils Absolute Auto 0.1 0.0 - 0.2 X10*3/uL [facility] NRBC Abs Auto 0.060(H) 0.0 - 0.012 X10*3/uL [facility] 04/27/2025 10:2 6 AM EST 04/27/2025 10:26 AM EST us Generic External Data Provider LAB BLOOD ORDERAB LES Final Result [facility] [address] [place] [address] [phone] * Referral to Orthopaedic Surgery (04/09/2025) us Bita Alvarez [facility] OUTPATIENT REFERRAL ORDERABLES Edited Result - Final * Hepatitis C Viral RNA, Quantitative, Real-Time PCR (01/20/2025 10:54 AM EDT) Hepatitis C Viral Load <15 NOT DETECTED NOT DETECTED IU/mL [facility] HCV Log PCR <1.18 NOT DETECTED NOT DETECTED Log IU/mL [facility] Comment:For additional infor mation, please refer [email or web address].Nanosys/faq/EQJ91p9(This link is being provided for informational/educational purposes only.)THIS TEST WAS PERFORMED AT:[facility] [place] [id number] WAGONER MD Blood 01/20/2025 10:5 4 AM EDT 01/20/2025 1:16 PM EDT Bita Alvarez [facility] LAB BLOOD ORDERABLES Final Res ult [facility] [address] [place] [address] [phone] * (ABNORMAL) Lipid Panel, Standard (09/16/2024 11:00 AM EDT) Triglycerides 230(H) <150 mg/dL [facility] Comment:Desirable Triglyceri de: less than 150 mg/dLBorderline High Triglyceride 150-199 mg/dLHigh Triglyceride: 200-499 mg/dLVery High Triglyceride: greater than or equal to 5OO mg/dL Cholesterol 102 <200 mg/dL [facility] Comment:Desirable Cholestero l: less than 200 mg/dLBorderline High Cholesterol: 200-239 mg/dLHigh Cholesterol: greater than 239 mg/dL LDL Cholesterol Calculated 30 <100 mg/dL [facility] Comment:Desirable LDL: less than 100 mg/dLNear Optimal/Above Optimal LDL: 110- 129 mg/dLBorderline High LDL: 130-159 mg/dLHigh LDL: 160-189 mg/dLVery High LDL: greater than or equal to 190 mg/dL HDL Cholesterol 26(L) >40 mg/dL [facility] Comment:Desirable HDL: great er than 40 mg/dL Note: This HDL assay may give artificially low results in patients with liver disease. Blood Venous blood specimen / Unknown 09/16/2024 11:00 AM EDT 09/16/2024 1:26 PM EDT Bita Alvarez CLINICAL LAB TECHNOLOGIST LAB BLOOD ORDERABLES Final Res ult [facility] [address] [place] [phone] * Colonoscopy (10/30/2016) Colonoscopy Normal Normal Narrative Dominique Grande - 10/30/2016 Repeat in 10 years Historical Provider MD HEALTH MAINTENANCE Final Result from Last 3 Months or Most Recently Relevant to Health Maintenance [place] [address] [place] [address] MEDICARE ADVANTAGE HMO Care Teams Art Instructor Relationship Specialty Start Date End Date Bita Alvarez FNP [address] [place], [place] [phone] PCP - General Family Medicine 07/16/22
--- OUTSIDE RECORDS SUMMARY | 2025-04-27 11:13 | XMS_ITS | Encounter Summary ---
Author Organization [employer] Address [address] [facility] [address] [place] [address] Care Team Providers Care Specimen Preparation Assistant Name Role Phone Bita Alvarez Primary Care Provider [phone] Reason for Visit * Reason Comments Med Refill Encounter Details Date Type Department Care Team (Late st Contact Info) Description 05/04/2024 Refill [facility] [address] [place] [address] Bita Alvarze FNP [address] [place], [place] [phone] Social History Tobacco Use Types Packs/Day Years [...] Description 05/14/2025 9:00 AM EST Office Visit [address] [address] Israel Quigley MD [address] [place] [phone] 07/21/2025 11:30 AM EDT Office Visit [address] [address] Bita Alvarez FNP [address] [place] [phone] documented as of this encounter Visit Diagnoses Not on filedocumented in this encounter Additional Health Concerns Assessment Noted Time PHQ-9 Depression Total Score: 2 01/02/20 24 8:17 PM EDT documented as of this encounter Care Teams Specimen Preparation Assistant Relationship Specialty Start Date End Date Bita Alvarez FNP [address] [place] [phone] PCP - General Family Medicine 07/16/22 documented as of this encounter
--- OUTSIDE RECORDS SUMMARY | 2025-04-27 11:13 | XMS_ITS | Encounter Summary ---
Author Organization [employer] Address [address] [facility] 7[address] [place] [address] Care Team Providers Care Assistant Therapy Aide Name Role Phone Bita Alvarez DIANA Primary Care Provider [phone] Encounter Details Date Type Department Care Team ([facility] Contact Info) Description 04/27/2025 Orders Only GENERIC EXTERNAL DATA DEPARTMENT Provider, Generic External Data Social History Tobacco Use Types Packs/Day Years [...] 05/14/2025 9:00 AM EST Office Visit [address] [address] Israel Quigley MD [address] [place] [phone] 07/21/2025 11:30 AM EDT Office Visit [address] [address] Bita Alvarez FNP [address] [place] [address] documented as of this encounter Procedures Procedure Name Priority Date/Time Associated Diagnosis Comments CBC WITH AUTO DIFFERENTIAL Routine 04/27/2025 10:26 AM EST documented in this encounter Results * (ABNORMAL) CBC auto differential (04/27/2025 10:26 AM EST) White Blood Count 5.9 4.8 - 10.8 X10*3/uL [facility] Red Blood Count 3.86(L) 4.60 - 5.80 X10*6/uL [facility] Hemoglobin 11.2(L) 14.0 - 18.0 g/dl [facility] Hematocrit 32.8(L) 42.0 - 52.0 % [facility] Mean Corpuscular Volume 85.0 80.0 - 98.0 fL [facility] Mean Corpuscular Hemoglobin 29.0 27.0 - 33.0 pg [facility] Mean Corpuscular HGB Conc 34.1 31.0 - 36.0 g/dl [facility] Red Cell Distribution Width 16.5(H) 11.0 - 16.0 % [facility] Platelet Count 133(L) 160 - 400 X10*3/uL [facility] Mean Platelet Volume 8.9(L) 9.4 - 12.4 fL [facility] Neutrophils Percent Auto 66.3 45 - 73 % [facility] Imm Gran Pct Auto 3.9(H) 0.0 - 0.4 % [facility] Lymphocytes Percent Auto 20.5 20 - 40 % [facility] Monocytes Percent Auto 6.8 2 - 11 % [facility] Eosinophils Percent Auto 1.5 0 - 4 % [facility] Basophils Percent Auto 1.0 0 - 2 % [facility] NRBC Pct Auto 1.0(H) 0.0 - 0.2 /100WBC [facility] Neutrophils Absolute Auto 3.9 2.0 - 8.3 x10*3/uL [facility] Imm Gran Abs Auto 0.23(H) 0.00 - 0.03 X10*3/uL [facility] Lymphocytes Absolute Auto 1.2 1.2 - 4.9 X10*3/uL [facility] Monocytes Absolute Auto 0.4 0.1 - 1.2 X10*3/uL [facility] Eosinophils Absolute Auto 0.1 0.0 - 0.4 X10*3/uL [facility] Basophils Absolute Auto 0.1 0.0 - 0.2 X10*3/uL [facility] NRBC Abs Auto 0.060(H) 0.0 - 0.012 X10*3/uL [facility] 04/27/2025 10:2 6 AM EST 04/27/2025 10:26 AM EST us Generic External Data Provider LAB BLOOD ORDERAB LES Final Result [facility] [address] [place] [address] [phone] documented in this encounter Visit Diagnoses Not on filedocumented in this encounter Additional Health Concerns Assessment Noted Time PHQ-9 Depression Total Score: 4 09/17/19 25 10:03 AM EDT documented as of this encounter Care Teams Assistant Therapy Aide Relationship Specialty Start Date End Date Bita Alvarez FNP [address] [place] [address] PCP - General Family Medicine 07/16/22 documented as of this encounter
--- OUTSIDE RECORDS SUMMARY | 2025-04-27 11:13 | XMS_ITS | Encounter Summary ---
Author Organization [employer] Address [address] [address] [place] [address] Care Team Providers Care Soccer Player Name Role Phone Bita Alvarez DIANA Primary Care Provider Encounter Details Date Type Department Care Team ([facility] st Contact Info) Description 03/22/2023 Abstract [facility] [address] [place], [place] [phone] Dominique Grande Social History Tobacco Use Types [...] Description 05/14/2025 9:00 AM EST Office Visit [facility] [address] [place] [address] Israel Quigley MD [address] [place] [address] 07/21/2025 11:30 AM EDT Office Visit [address] [address] Bita Alvarez FNP [address] [place], [place] [phone] documented as of this encounter Procedures Procedure Name Priority Date/Time Associated Diagnosis Comments COLONOSCOPY Routine 10/30/2016 documented in this encounter Results * Colonoscopy (10/30/2016) Colonoscopy Normal Normal Narrative Dominique Grande - 10/30/2016 Repeat in 10 years Historical Provider HEALTH MAINTENANCE Final Result documented in this encounter Visit Diagnoses Not on filedocumented in this encounter Additional Health Concerns Assessment Noted Time PHQ-9 Depression Total Score: 0 09/22/19 23 3:11 PM EDT documented as of this encounter Care Teams Soccer Player Relationship Specialty Start Date End Date Bita Alvarez FNP [address] [place] [address] PCP - General Family Medicine 07/16/22 documented as of this encounter
--- OUTSIDE RECORDS SUMMARY | 2025-04-27 11:13 | XMS_ITS | Encounter Summary ---
Author Organization [employer] Address [address] [place] [address] 7[address] [place] [address] Care Team Providers Care Program Writer Name Role Phone Bita Alvarez SOLE PAINTER Primary Care Provider [phone] Reason for Visit * Reason Comments Med Refill Encounter Details Date Type Department Care Team (Late st Contact Info) Description 11/26/2022 Refill [facility] [address] [place] [address] [phone] Israel Quigley MD [address] [place] [address] [phone] Opioid dependence, uncomplicated (CMS/HCC) Social History Tobacco [...] Description 05/14/2025 9:00 AM EST Office Visit [facility] [address] [place] [address] [phone] Israel Quigley MD [address] [place], [place] [phone] 07/21/2025 11:30 AM EDT Office Visit [facility] [address] [place] [address] Bita Alvarez FNP [address] [place] [address] documented as of this encounter Visit Diagnoses Diagnosis Opioid dependence, uncomplicated (CMS/HCC) ([facility]) documented in this encounter Additional Health Concerns Assessment Noted Time PHQ-9 Depression Total Score: 0 09/22/19 3:11 PM EDT documented as of this encounter Care Teams Program Writer Relationship Specialty Start Date End Date Bita Alvarez FNP [address] [place] [address] PCP - General Family Medicine 07/16/22 documented as of this encounter
--- OUTSIDE RECORDS SUMMARY | 2025-04-27 11:13 | XMS_ITS | Encounter Summary ---
Author Organization [employer] Address [address] [facility] 7t [place] [address] Care Team Providers Care Agricultural Researcher Name Role Phone Bita Alvarez Primary Care Provider [phone] Reason for Visit * Reason Comments Med Refill Encounter Details Date Type Department Care Team (Late st Contact Info) Description 02/25/2023 Refill [facility] [address] [place] [address] Bita Alvarez FNP [address] [place], [place] [phone] Social History Tobacco Use Types Packs/Day Years [...] Description 05/14/2025 9:00 AM EST Office Visit [address] [address] Israel Quigley MD [address] [place] [address] 07/21/2025 11:30 AM EDT Office Visit [facility] [address] [place] [address] Bita Alvarez FNP [address] [place] [address] documented as of this encounter Visit Diagnoses Not on filedocumented in this encounter Additional Health Concerns Assessment Noted Time PHQ-9 Depression Total Score: 0 09/22/19 3:11 PM EDT documented as of this encounter Care Teams Agricultural Researcher Relationship Specialty Start Date End Date Bita Alvarez FNP [address] [place] [address] PCP - General Family Medicine 07/16/22 documented as of this encounter
--- OUTSIDE RECORDS SUMMARY | 2025-04-27 11:13 | XMS_ITS | Encounter Summary ---
Author Organization [employer] Address [address] [facility] 7t [place] [address] Care Team Providers Care Physician Obstetrician Name Role Phone Bita Alvarez DIANA Primary Care Provider [phone] Reason for Visit * Reason Comments Med Refill Encounter Details Date Type Department Care Team (Late st Contact Info) Description 04/16/2023 Refill [facility] [address] [place], [place] [phone] Israel Quigley MD [address] [place], [place] [phone] Opioid dependence, uncomplicated (CMS/HCC) Social History Tobacco [...] Description 05/14/2025 9:00 AM EST Office Visit [facility] [address] [place] [address] Israel Quigley MD [address] [place] [address] 07/21/2025 11:30 AM EDT Office Visit [facility] [address] [place] [address] Bita Alvarez FNP [address] [place] [address] documented as of this encounter Visit Diagnoses Diagnosis Opioid dependence, uncomplicated (CMS/HCC) (HCC) documented in this encounter Additional Health Concerns Assessment Noted Time PHQ-9 Depression Total Score: 0 09/22/19 3:11 PM EDT documented as of this encounter Care Teams Physician Obstetrician Relationship Specialty Start Date End Date Bita Alvarez FNP [address] [place] [phone] PCP - General Family Medicine 07/16/22 documented as of this encounter
--- OUTSIDE RECORDS SUMMARY | 2025-04-27 11:13 | XMS_ITS | Encounter Summary ---
Author Organization [employer] Address [address] [facility] 7t [place] [address] Care Team Providers Care Cash Applications Analyst Name Role Phone Bita Alvarez Primary Care Provider [phone] Reason for Visit * Reason Comments Med Refill Encounter Details Date Type Department Care Team (Late st Contact Info) Description 03/02/2025 Refill [facility] [address] [place] [address] Bita Alvarez FNP [address] [place], [place] [phone] Constipation due to opioid therapy Social History Tobacco Use Types Packs/Day Years [...] Description 05/14/2025 9:00 AM EST Office Visit [address] [address] Israel Quigley MD [address] [place] [address] 07/21/2025 11:30 AM EDT Office Visit [facility] [address] [place] [address] Bita Alvarez FNP [address] [place] [address] documented as of this encounter Visit Diagnoses Diagnosis Constipation due to opioid therapy documented in this encounter Additional Health Concerns Assessment Noted Time PHQ-9 Depression Total Score: 4 09/17/19 25 10:03 AM EDT documented as of this encounter Care Teams Cash Applications Analyst Relationship Specialty Start Date End Date Bita Alvarez FNP [address] [place] [address] PCP - General Family Medicine 07/16/22 documented as of this encounter
--- OUTSIDE RECORDS SUMMARY | 2025-04-27 11:13 | XMS_ITS | Encounter Summary ---
Author Organization [employer] Address [address] [facility] 7t [place] [address] Care Team Providers Care Crop Scout Name Role Phone Bita Alvarez Primary Care Provider [phone] Reason for Visit * Reason Comments Med Refill Encounter Details Date Type Department Care Team (Late st Contact Info) Description 04/16/2024 Refill [facility] [address] [place] [address] Bita Alvarez FNP [address] [place], [place] [phone] Social History Tobacco Use Types Packs/Day Years [...] Description 05/14/2025 9:00 AM EST Office Visit [address] [address] Israel Quigley MD [address] [place] [address] 07/21/2025 11:30 AM EDT Office Visit [address] [address] Bita Alvarez FNP [address] [place] [address] documented as of this encounter Visit Diagnoses Not on filedocumented in this encounter Additional Health Concerns Assessment Noted Time PHQ-9 Depression Total Score: 2 01/02/20 24 8:17 PM EDT documented as of this encounter Care Teams Crop Scout Relationship Specialty Start Date End Date Bita Alvarez FNP [address] [place] [address] PCP - General Family Medicine 07/16/22 documented as of this encounter
--- OUTSIDE RECORDS SUMMARY | 2025-04-27 11:13 | XMS_ITS | Encounter Summary ---
Author Organization [employer] Address [address] [facility] 7t [place] [address] Care Team Providers Care It Administrator Name Role Phone Bita Alvarez DIANA Primary Care Provider [phone] Reason for Visit * Reason Comments Med Refill Encounter Details Date Type Department Care Team (Late st Contact Info) Description 10/29/2023 Refill [facility] [address] [place], [place] [phone] Israel Quigley MD [address] [place], [place] [phone] Opioid dependence, uncomplicated (CMS/HCC) Social History Tobacco [...] Description 05/14/2025 9:00 AM EST Office Visit [facility] [address] [place] [address] Israel Quigley MD [address] [place] [address] 07/21/2025 11:30 AM EDT Office Visit [facility] [address] [place] [address] Bita Alvarez FNP [address] [place] [address] documented as of this encounter Visit Diagnoses Diagnosis Opioid dependence, uncomplicated (CMS/HCC) (HCC) documented in this encounter Additional Health Concerns Assessment Noted Time PHQ-9 Depression Total Score: 0 09/22/19 3:11 PM EDT documented as of this encounter Care Teams It Administrator Relationship Specialty Start Date End Date Bita Alvarez FNP [address] [place] [address] PCP - General Family Medicine 07/16/22 documented as of this encounter
[2025-04-27 12:01] LABS: Alanine Aminotransferase 38 U/L (0-40); Albumin Level 4.8 g/dL (3.5-5.0); Alkaline Phosphatase 100 U/L (39-117); Anion Gap 14 (12-20); Aspartate Amino Transferase 25 U/L (5-37); Blood Urea Nitrogen 22 mg/dL (9-16); Calcium 10.0 mg/dL (8.4-10.2); Carbon Dioxide 25 mmol/L (22-29); Chloride 103 mmol/L (96-108); Estimated Glomerular Filt Rate > 60; Potassium 3.6 mmol/L (3.3-5.1); Sodium 138 mmol/L (135-145); Total Protein 7.4 g/dL (6.5-8.0)
[2025-04-27 12:05] LABS: Ferritin 58 ng/mL (20-250)
[2025-04-27 12:14] LABS: Prostate Specific Antigen 0.32 ng/mL (<0.05-4.0)
== END 2025-04-27 10:10 | disposition home or self-care (01) ==
LOC: HO.LAB 10:09
PROVIDERS: Absent Provider Nurse Practitioner Family; PCP Registered Nurse; Visit Provider Internal Medicine Medical Oncology
DX: N40.1 Benign prostatic hyperplasia with lower urinary tract symptoms (principal); R35.1 Nocturia; D64.9 Anemia, unspecified; Z12.5 Encounter for screening for malignant neoplasm of prostate
CPT/HCPCS: 36415; 80053; 82728; 84153; 85025